=== PATIENT | male | born 1950 | race Caucasian/White ===

== ENCOUNTER 2017-08-19 09:11 | Day surgery (SDC) | payer MEDICARE, SELFPAY ==
[~2017-08-19] VITALS: Ht 182.9 cm; Wt 91.4 kg
[~2017-08-19 09:11] MED LIST: ALBU90I; ALBU90OI INH; ALBU90OI61 INH; AMOCLA875 PO; AMOX500 PO; ASPI81CH PO; ATOR80; Augmentin 875-1 EACH PO; BUDE10.22; BUDE10.22 INH; BUPR100; BUPR150ER PO; CARV25 PO; CYAN1000 PO; CYCL10 PO; Coumadin5 MG PO; DEPRESSION MED; DOXY100 PO; DOXY100T53 PO; ESOM20; Flonase 0.05% N16 GM; HYDACE5 PO; HYDACE5325 PO; HYDR1TAB94 PO; INSLIS75I SUBQ; LEVSOD100 PO; LEVSOD75 PO; LISI5 PO; METPRE4DP PO; Norco 5-325 Ta1 EACH PO; OMEP40CA12 PO; OXYACE5T PO; OXYC5 PO; PRAV20 PO; PSEHYDGUAL PO; RANI150 PO; RXHYD5325 PO; RXHYDMOR2 PO; SERT100; TAMS.4ER PO; THYROID PILL; VITAMIN D31000 UNIT PO; WARF2.5; WARF4; [UNRECOGNIZED DRUG - REMARK]
== END 2017-08-19 11:39 | disposition home or self-care (01) ==
LOC: ORSCSDS 09:11
PROVIDERS: Internal Medicine Gastroenterology
PROC: 0D758ZZ Dilation of Esophagus, Via Natural or Artificial Opening Endoscopic (ICD-10-PCS; principal; 2017-08-19 10:30)
DX: R13.10 Dysphagia, unspecified (principal); K22.2 Esophageal obstruction; K22.10 Ulcer of esophagus without bleeding; K26.9 Duodenal ulcer, unspecified as acute or chronic, without hemorrhage or perforation; K44.9 Diaphragmatic hernia without obstruction or gangrene; K21.9 Gastro-esophageal reflux disease without esophagitis; I25.10 Atherosclerotic heart disease of native coronary artery without angina pectoris; Z95.1 Presence of aortocoronary bypass graft; I10 Essential (primary) hypertension; E03.9 Hypothyroidism, unspecified; Z86.718 Personal history of other venous thrombosis and embolism; J44.9 Chronic obstructive pulmonary disease, unspecified; F17.210 Nicotine dependence, cigarettes, uncomplicated; Z79.01 Long term (current) use of anticoagulants; Z79.899 Other long term (current) drug therapy
CPT/HCPCS: J7120

== ENCOUNTER 2018-09-18 16:31 | Emergency (ER) | payer MEDICARE ==
[~2018-09-18] VITALS: Ht 182.9 cm; Wt 97.1 kg
[2018-09-18] MEDS ORDERED: Augmentin 875-1 EACH PO (17:27)
[2018-09-18] MEDS ORDERED: Prednisone20 MG PO (17:27)
== END 2018-09-18 17:55 | disposition home or self-care (01) ==
LOC: ER 16:31
DX: J32.9 Chronic sinusitis, unspecified (principal); R05 Cough; Z91.018 Allergy to other foods; Z79.899 Other long term (current) drug therapy; Z79.82 Long term (current) use of aspirin; Z79.01 Long term (current) use of anticoagulants; F17.210 Nicotine dependence, cigarettes, uncomplicated
CPT/HCPCS: 71046; 99283-25

== ENCOUNTER 2019-07-02 17:42 | Emergency (ER) | payer OTHER ==
[~2019-07-02] VITALS: Ht 182.9 cm; Wt 101.2 kg
[~2019-07-02 17:42] MED LIST changes: +Prednisone20 MG PO
[2019-07-02 18:27] LABS: BASOPHILS ABSOLUTE AUTO 0.04 K/mm3 (0.00-0.23); BASOPHILS PERCENT AUTO 1 % (0-2); EOSINOPHILS ABSOLUTE AUTO 0.13 K/mm3 (0.00-0.68); EOSINOPHILS PERCENT AUTO 2 % (0-6); Hematocrit 44.1 % (37.0-53.0); Hemoglobin 14.7 g/dL (13.5-17.5); IMMATURE GRAN ABSOLUTE AUTO 0.04 K/mm3 (0.00-0.10); IMMATURE GRAN PERCENT AUTO 1 % (0-1); LYMPHOCYTES ABSOLUTE AUTO 1.11 K/mm3 (0.84-5.20); LYMPHOCYTES PERCENT AUTO 13 % (21-46); MONOCYTES ABSOLUTE AUTO 0.67 K/mm3 (0.16-1.47); MONOCYTES PERCENT AUTO 8 % (4-13); Mean Corpuscular HGB 32.4 pg (26.0-34.0); Mean Corpuscular HGB Conc 33.3 g/dL (31.5-36.5); Mean Corpuscular Volume 97 fL (80-100); Mean Platelet Volume 10.5 fL (9.1-12.4); NEUTROPHILS PERCENT AUTO 77 % (41-73); Platelet Count 121 K/mm3 (150-400); RDW Coefficient Variation 12.7 % (11.7-14.2); RDW Standard Deviation 45.9 fL (35.1-46.3); Red Blood Cell Count 4.54 M/mm3 (4.30-5.90); White Blood Cell Count 8.49 K/mm3 (4.00-11.30)
[2019-07-02 18:40] LABS: International Normalized Ratio 2.93; Prothrombin Time Results 28.2 Sec (9.7-11.5)
[2019-07-02 18:44] LABS: Alanine Aminotransfer (ALT/SGP 29 U/L (12-78); Albumin, Blood 3.2 g/dL (3.4-5.0); Albumin/Globulin Ratio 0.9 (0.8-1.8); Alk Phos 104 U/L (50-136); Anion Gap 8 mmol/L (6-16); Aspartate Aminotrans (AST/SGOT 21 U/L (12-37); Bilirubin, Total 0.5 mg/dL (0.1-1.0); Blood Urea Nitrogen 18 mg/dL (8-24); CO2, Blood 20 mmol/L (21-32); Calcium, Blood 8.5 mg/dL (8.5-10.1); Chloride, Blood 111 mmol/L (98-108); Globulin, Blood 3.6 g/dL (2.2-4.0); Glomerular Filtration Rate >60 (60-); Glucose, Blood 90 mg/dL (70-99); Potassium, Blood 4.2 mmol/L (3.5-5.5); Sodium, Blood 139 mmol/L (136-145); Total Protein, Blood 6.8 g/dL (6.4-8.2); Troponin I <0.015 ng/mL (0.000-0.040)
== END 2019-07-02 20:24 | disposition home or self-care (01) ==
LOC: ER 17:42
PROVIDERS: Physician Assistant
DX: M79.661 Pain in right lower leg (principal); J44.9 Chronic obstructive pulmonary disease, unspecified; F17.210 Nicotine dependence, cigarettes, uncomplicated; Z86.711 Personal history of pulmonary embolism; Z79.01 Long term (current) use of anticoagulants; Z79.82 Long term (current) use of aspirin; Z79.899 Other long term (current) drug therapy; Z91.018 Allergy to other foods
CPT/HCPCS: 36415; 71046; 71260; 80053; 83880; 84484; 85025; 85610; 93005; 93010; 93971; 99284-25; Q9967

== ENCOUNTER 2019-09-23 15:33 | Emergency (ER) | payer MEDICARE ==
[~2019-09-23] VITALS: Ht 182.9 cm; Wt 98.4 kg
[2019-09-23] MEDS ORDERED: Neurontin 100100 MG PO (17:34)
== END 2019-09-23 17:43 | disposition home or self-care (01) ==
LOC: ER 15:33
DX: I72.4 Aneurysm of artery of lower extremity (principal); G62.9 Polyneuropathy, unspecified; Z79.899 Other long term (current) drug therapy; F17.210 Nicotine dependence, cigarettes, uncomplicated
CPT/HCPCS: 93971; 99283-25

== ENCOUNTER 2019-09-29 10:04 | Observation (INO) | payer MEDICARE ==
[~2019-09-29] VITALS: Ht 182.9 cm; Wt 97.4 kg
[~2019-09-29 10:04] MED LIST changes: +ANORO ELLIPTA1 EACH INH; +Neurontin 100100 MG PO; +PANT40 PO; +PROAIR DIGIHAL90 MCG INH
--- NOTE | 2019-09-29 17:35 | NUR ---
PT ADMITTED TO ICU AT 1425 POST ANGIOGRAM OF RIGHT LEG FOR HX PAD. PT AWAKE AND SOMEWHAT DROWSY AFTER PROCEDURE. BEDSIDE REPORT TAKEN. SHEATH/CATHETER TO RIGHT FEM ART, INFUSING TPA/HEP ACROSS THRASHER FEEDER AND DOWN TO RIGHT POP ART. VERY SMALL OOZ TO SHEATH SITE; LESS THAN 1/2 CM. AREA SOFT W/O HEMATOMA. TPA INFUSING 1MG/MIN X2, HEP INFUSING AT 6ML/HR. TPA T BE DECREASED TO 0.5MG/MIN AFTER 6HRS OF INFUSION; 2014. PT C/O PAIN 8-04/08 TO R LEG/FOOT. RIGHT FOOT/GRACE RED, EDEMATOUS, AND TENDER. R FOOT/LEG ELEVATED ON PILLOW. PT STATED THIS HELPED THE PAIN "A LOT". FENT ALS GIVEN FOR PAIN. VSS, SLIGHTLY HYPERTENSIVE AT TIMES. RIGHT DP BY DOPPLER ONLY. RIGHT GROIN AND CIRC CHECKED Q15 X4, Q 30MIN X2, THEN HOURLY. AREA HAS REMAINED WNL, NO BLEEDING (OTHER THAN INSIGNIFICANT OOZ), NO SWELLING, NO HEMATOMA, DP BY DOPPLER.
--- NOTE | 2019-09-29 18:20 | NUR ---
PT ATTEMPTED TO VOID URINAL; UNABLE. STRATTON CATH PLACED WITH UROJET LIDOCAINE. PT TOLERATED PROCEDURE WELL. CLEAR LIQUIDS FED TO PT; PT FELIPE WELL. FENT GIVEN FOR RIGHT FOOT PAIN. LEFT GROIN REMIANS STABLE
[2019-09-29 18:22] LABS: Source, Urine Catheter
[2019-09-29 18:45] LABS: Appearance, Urine Clear (Clear); Bilirubin, Urine Neg (Neg); Blood, Urine Neg (Neg); Color, Urine Yellow (P-Yellow); Glucose Qualitative, Urine Neg (Neg); Ketones, Urine Neg (Neg); Leukocyte Esterase, Urine Neg (Neg); Nitrite, Urine Neg (Neg); Protein, Urine Neg (Neg); Urobilinogen, Urine NORM (Normal)
--- NOTE | 2019-09-29 20:00 | NUR ---
ASSUMED CARE OF PT AT 1915. REPORT RECEIVED AT BEDSIDE. PT CONTINUES ON TPA AT 1 MG. LEFT GROIN ACCESS SITE WITH SMALL PROXIMAL HEMATOMA. VERY TENDER TO PALPATION. WAS ABLE TO SUCCESSFULLY REDUCE HEMATOMA. WILL CONTINUE TO CLOSELY MONTIOR. DOPPLER PULSES BI LAT TO LOWER EXTREMITIES. WILL REVIEW CHART AND PLAN OF CARE FOR THIS PT.
--- NOTE | 2019-09-30 00:24 | NUR ---
PT HAS HAD RETURN OF HEMATOMA, WHICH WAS SLIGHTLY BIGGER THAN PREVIOUOSLY NOTED. AGAIN, REDUCED HEMATOMA AND THEN PLACED 2 POUND SANDBAG TO SITE. CALL MADE TO DR DENG FOR UPDATE. ORDERS RECEIVED. DID REDUCE ATEPLACE DRIPS TO 0.5 MG EACH. WITH SUBSEQUENT Q 15 MINUTES CHECKS. HAVE NOT HAD RETURN OF HEMATOMEA. WILL CONTINUE TO MONITOR.
--- NOTE | 2019-09-30 03:30 | NUR ---
LEFT GROIN SITE REMAINS WITHOUT RETURN OF HEMATOMA. PT CONTINUES ON TPA X 2 AT O.5MG/HOUR. PT REMAINS COMPLIANT WITH SUPINE RESTRICTIONS. LOWER EXTREMITIES BOTH REMAINS WARM. CAP REFILLS IMPROVING TO 2-3 SECONDS. WILL KEEP MONITORING.
--- NOTE | 2019-09-30 06:10 | NUR ---
PT NOTED TO HAVE SMALL RETURN OF HEMATOMA WHICH EASILY REDUCES. 2 POUND SANDBAG REPOSITIONED. PT WILL CONTINUE TO TPA DRIPS UNTIL 1015. 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 VSS. HAVE BEEN ABLE TO PALPATE FAINT PEDAL PULSES BI LAT. VERIFIED WITH DOPPLER. WILL CONTINUE TO MONITOR PT, AND WILL REPORT OFF TO ONCOMING RN.
--- NOTE | 2019-09-30 10:27 | NUR ---
RETURN FROM TIRE CLASSIFIER 0950 - PT RETURNS FROM TIRE CLASSIFIER AT THIS TIME. L GROIN ANGIOSEAL CLEAN AND DRY WITH HEMATOMA AROUND AREA. DENIES CHEST PAIN. BILAT PEDAL PULSES DOPPLERED BUT NOT PALPABLE. R LEG IS REDDENED AND SWOLLEN COMPARED TO L LEG. NO SOB AT THIS TIME; RA. LUNG SOUNDS CLEAR. ARRIVES WITH NO FLUIDS INFUSING. ORAL MEDICATIONS GIVEN. PT LYING FLAT AND AWARE THAT HE IS TO REMAIN FLAT FOR FEW HOURS. HEPARIN GTT TO BE STARTED AT 1150. WILL CONTINUE TO MONITOR PT AND SITE.
[2019-09-30 11:14] LABS: International Normalized Ratio 1.62; Prothrombin Time Results 16.9 Sec (9.7-11.5)
[2019-09-30] MEDS ORDERED: Plavix75 MG PO (15:13)
--- NOTE | 2019-09-30 16:08 | NUR ---
DISCHARGE PERIPHERAL IV REMOVED. STRATTON CATHETER REMOVED. COUNSELED PT ON DC INSTRUCTIONS, FU APPOINTMENT, AND NEW MEDICATIONS ALONG WITH RESUMING PRIOR MEDICATIONS. DISCUSSED THE IMPORTAMCE OF MOBILIZATION TO PREVENT CLOTTING OF THE GRAFT. WHEELED TO DISCHARGE AND PUT IN FRIENDS VAN.
--- NOTE | 2019-09-30 18:19 | NUR ---
Mr. Sevilla was very open about his grief with the loss of his 3 months ago. He spoke about his frustrations with adult dtr and responded well to adolescent counselor and prayer. I will remain available.
== END 2019-09-30 16:08 | disposition home or self-care (01) ==
LOC: MHTC 10:04 → ICUE 14:02 → MHTC 14:02 → ICUW 14:02 → ICUE 14:46
PROVIDERS: ADMIT Radiology Diagnostic Radiology
DX: I70.203 Unspecified atherosclerosis of native arteries of extremities, bilateral legs (principal); I10 Essential (primary) hypertension; E78.5 Hyperlipidemia, unspecified; J44.9 Chronic obstructive pulmonary disease, unspecified; K21.9 Gastro-esophageal reflux disease without esophagitis; I72.4 Aneurysm of artery of lower extremity; F17.210 Nicotine dependence, cigarettes, uncomplicated; Z88.8 Allergy status to other drugs, medicaments and biological substances; Z79.01 Long term (current) use of anticoagulants; Z79.82 Long term (current) use of aspirin; Z79.899 Other long term (current) drug therapy
CPT/HCPCS: 36415; 37211; 37214; 37224; 37228; 37232; 75625; 75716; 75774; 81003; 85347; 85384; 85610; 85730; 94640; 96374; 96375; 96376; 99152; 99153; A9270-GY; C1725; C1751; C1760; C1769; C1887; C1894; C2623; G0378; J1644; J2250; J2997; J3010; J7030; J7040; Q9967

== ENCOUNTER 2019-11-15 12:20 | Day surgery (SDC) | payer MEDICARE ==
[~2019-11-15 12:20] MED LIST changes: +Plavix75 MG PO
== END 2019-11-15 22:52 | disposition home or self-care (01) ==
PROVIDERS: Internal Medicine Gastroenterology
PROC: 0D758ZZ Dilation of Esophagus, Via Natural or Artificial Opening Endoscopic (ICD-10-PCS; principal; 2019-11-15 15:30)
PROC: 0DJ08ZZ Inspection of Upper Intestinal Tract, Via Natural or Artificial Opening Endoscopic (ICD-10-PCS; principal; 2019-11-15 15:30)
DX: R13.10 Dysphagia, unspecified (principal); K22.2 Esophageal obstruction; K44.9 Diaphragmatic hernia without obstruction or gangrene; Z86.718 Personal history of other venous thrombosis and embolism; J44.9 Chronic obstructive pulmonary disease, unspecified; I73.9 Peripheral vascular disease, unspecified; Z79.01 Long term (current) use of anticoagulants; Z79.82 Long term (current) use of aspirin; Z79.899 Other long term (current) drug therapy; F17.210 Nicotine dependence, cigarettes, uncomplicated

== ENCOUNTER 2020-05-30 14:29 | Inpatient (IN) | payer MEDICARE ==
[~2020-05-30] VITALS: Ht 182.9 cm; Wt 96.0 kg
[2020-05-30 15:07] LABS: BASOPHILS ABSOLUTE AUTO 0.05 K/mm3 (0.00-0.23); BASOPHILS PERCENT AUTO 1 % (0-2); EOSINOPHILS ABSOLUTE AUTO 0.07 K/mm3 (0.00-0.68); EOSINOPHILS PERCENT AUTO 1 % (0-6); Hematocrit 49.2 % (37.0-53.0); Hemoglobin 16.3 g/dL (13.5-17.5); IMMATURE GRAN ABSOLUTE AUTO 0.05 K/mm3 (0.00-0.10); IMMATURE GRAN PERCENT AUTO 1 % (0-1); LYMPHOCYTES ABSOLUTE AUTO 1.12 K/mm3 (0.84-5.20); LYMPHOCYTES PERCENT AUTO 12 % (21-46); MONOCYTES ABSOLUTE AUTO 0.74 K/mm3 (0.16-1.47); MONOCYTES PERCENT AUTO 8 % (4-13); Mean Corpuscular HGB 32.3 pg (26.0-34.0); Mean Corpuscular HGB Conc 33.1 g/dL (31.5-36.5); Mean Corpuscular Volume 98 fL (80-100); NEUTROPHILS ABSOLUTE AUTO 7.08 K/mm3 (1.96-9.15); NEUTROPHILS PERCENT AUTO 78 % (41-73); Platelet Count 109 K/mm3 (150-400); RDW Standard Deviation 46.4 fL (35.1-46.3); Red Blood Cell Count 5.04 M/mm3 (4.30-5.90); White Blood Cell Count 9.11 K/mm3 (4.00-11.30)
[2020-05-30 15:26] LABS: Alanine Aminotransfer (ALT/SGP 22 U/L (12-78); Albumin, Blood 3.5 g/dL (3.4-5.0); Albumin/Globulin Ratio 0.9 (0.8-1.8); Alk Phos 98 U/L (50-136); Anion Gap 4 mmol/L (6-16); Aspartate Aminotrans (AST/SGOT 19 U/L (12-37); Bilirubin, Total 0.5 mg/dL (0.1-1.0); Blood Urea Nitrogen 14 mg/dL (8-24); Bun/Creatinine Ratio 12.2 (12.0-20.0); CO2, Blood 27 mmol/L (21-32); Calcium, Blood 9.2 mg/dL (8.5-10.1); Chloride, Blood 106 mmol/L (98-108); Creatinine, Blood 1.15 mg/dL (0.60-1.20); Globulin, Blood 3.8 g/dL (2.2-4.0); Glomerular Filtration Rate >60 (60-); Glucose, Blood 102 mg/dL (70-99); Potassium, Blood 4.1 mmol/L (3.5-5.5); Sodium, Blood 137 mmol/L (136-145); Total Protein, Blood 7.3 g/dL (6.4-8.2); Troponin I 0.018 ng/mL (0.000-0.040)
[2020-05-30] MEDS ORDERED: SYNTHROID75 MCG PO (18:42)
[2020-05-30] MEDS ORDERED: CARVEDILOL12.5 MG PO (18:42)
[2020-05-30] MEDS ORDERED: Pravachol40 MG PO (18:42)
[2020-05-30] MEDS ORDERED: TAMSULOSIN HCL0.4 M1 PO (18:42)
[2020-05-30] MEDS ORDERED: JANTOVEN2 MG PO (18:42)
[2020-05-30] MEDS ORDERED: PANTOPRAZOLE SO40 M2 PO (18:42)
[2020-05-30] MEDS ORDERED: LISI5 PO (18:43)
[2020-05-30] MEDS ORDERED: CELEXA10 MG PO (18:43)
[2020-05-30] MEDS ORDERED: PLAVIX75 MG PO (18:43)
[2020-05-30 20:22] LABS: International Normalized Ratio 1.44; Prothrombin Time Results 15.1 Sec (9.7-11.5)
[2020-05-30 23:19] LABS: Influenza A, PCR Negative (NEGATIVE); Influenza B, PCR Negative (NEGATIVE); Resp Syncytial Virus, PCR Negative (NEGATIVE); SARS-Cov-2 (COVID-19) PCR, MMC Negative (NEGATIVE)
[2020-05-31 05:23] LABS: BASOPHILS ABSOLUTE AUTO 0.03 K/mm3 (0.00-0.23); BASOPHILS PERCENT AUTO 0 % (0-2); EOSINOPHILS ABSOLUTE AUTO 0.04 K/mm3 (0.00-0.68); EOSINOPHILS PERCENT AUTO 1 % (0-6); Hematocrit 41.4 % (37.0-53.0); Hemoglobin 13.5 g/dL (13.5-17.5); IMMATURE GRAN ABSOLUTE AUTO 0.03 K/mm3 (0.00-0.10); IMMATURE GRAN PERCENT AUTO 0 % (0-1); LYMPHOCYTES ABSOLUTE AUTO 1.13 K/mm3 (0.84-5.20); LYMPHOCYTES PERCENT AUTO 17 % (21-46); MONOCYTES PERCENT AUTO 9 % (4-13); Mean Corpuscular HGB 31.7 pg (26.0-34.0); Mean Corpuscular HGB Conc 32.6 g/dL (31.5-36.5); Mean Corpuscular Volume 97 fL (80-100); Mean Platelet Volume 10.8 fL (9.1-12.4); NEUTROPHILS ABSOLUTE AUTO 4.96 K/mm3 (1.96-9.15); NEUTROPHILS PERCENT AUTO 73 % (41-73); Platelet Count 89 K/mm3 (150-400); RDW Coefficient Variation 12.9 % (11.7-14.2); RDW Standard Deviation 45.8 fL (35.1-46.3); Red Blood Cell Count 4.26 M/mm3 (4.30-5.90); White Blood Cell Count 6.79 K/mm3 (4.00-11.30)
[2020-05-31 05:36] LABS: Alanine Aminotransfer (ALT/SGP 21 U/L (12-78); Albumin, Blood 2.6 g/dL (3.4-5.0); Albumin/Globulin Ratio 0.9 (0.8-1.8); Alk Phos 80 U/L (50-136); Anion Gap 6 mmol/L (6-16); Aspartate Aminotrans (AST/SGOT 58 U/L (12-37); Bilirubin, Total 0.5 mg/dL (0.1-1.0); Blood Urea Nitrogen 13 mg/dL (8-24); Bun/Creatinine Ratio 14.9 (12.0-20.0); CO2, Blood 23 mmol/L (21-32); Calcium, Blood 8.2 mg/dL (8.5-10.1); Chloride, Blood 112 mmol/L (98-108); Creatinine, Blood 0.87 mg/dL (0.60-1.20); Glomerular Filtration Rate >60 (60-); Glucose, Blood 98 mg/dL (70-99); Potassium, Blood 4.1 mmol/L (3.5-5.5); Sodium, Blood 141 mmol/L (136-145); Total Protein, Blood 5.6 g/dL (6.4-8.2)
[2020-05-31 08:39] LABS: CHOL/HDL RATIO 3.3; Cholesterol 119 mg/dL (50-200); HDL Cholesterol 36 mg/dL (>39); LDL/HDL RATIO 1.8; Low Density Lipoprotein Chol 66 mg/dL (0-110); Triglycerides 83 mg/dL (30-160); Very Low Density Lipoprot Chol 16 mg/dL (6-32)
[2020-06-01 03:54] LABS: BASOPHILS ABSOLUTE AUTO 0.02 K/mm3 (0.00-0.23); BASOPHILS PERCENT AUTO 0 % (0-2); EOSINOPHILS ABSOLUTE AUTO 0.01 K/mm3 (0.00-0.68); EOSINOPHILS PERCENT AUTO 0 % (0-6); Hematocrit 38.3 % (37.0-53.0); Hemoglobin 12.6 g/dL (13.5-17.5); IMMATURE GRAN ABSOLUTE AUTO 0.04 K/mm3 (0.00-0.10); IMMATURE GRAN PERCENT AUTO 1 % (0-1); LYMPHOCYTES ABSOLUTE AUTO 0.85 K/mm3 (0.84-5.20); LYMPHOCYTES PERCENT AUTO 11 % (21-46); MONOCYTES PERCENT AUTO 12 % (4-13); Mean Corpuscular HGB 31.9 pg (26.0-34.0); Mean Corpuscular HGB Conc 32.9 g/dL (31.5-36.5); Mean Corpuscular Volume 97 fL (80-100); Mean Platelet Volume 10.4 fL (9.1-12.4); NEUTROPHILS ABSOLUTE AUTO 5.96 K/mm3 (1.96-9.15); NEUTROPHILS PERCENT AUTO 77 % (41-73); Platelet Count 71 K/mm3 (150-400); RDW Coefficient Variation 12.8 % (11.7-14.2); RDW Standard Deviation 45.9 fL (35.1-46.3); Red Blood Cell Count 3.95 M/mm3 (4.30-5.90); White Blood Cell Count 7.78 K/mm3 (4.00-11.30)
[2020-06-01 04:28] LABS: Anion Gap 4 mmol/L (6-16); Blood Urea Nitrogen 13 mg/dL (8-24); CO2, Blood 23 mmol/L (21-32); Calcium, Blood 7.9 mg/dL (8.5-10.1); Chloride, Blood 109 mmol/L (98-108); Creatinine, Blood 1.08 mg/dL (0.60-1.20); Glomerular Filtration Rate >60 (60-); Glucose, Blood 97 mg/dL (70-99); Potassium, Blood 3.9 mmol/L (3.5-5.5); Sodium, Blood 136 mmol/L (136-145)
[2020-06-01 10:06] LABS: International Normalized Ratio 1.42; Prothrombin Time Results 14.9 Sec (9.7-11.5)
[2020-06-01] MEDS ORDERED: JANTOVEN2 MG (10:30)
[2020-06-02 05:12] LABS: BASOPHILS ABSOLUTE AUTO 0.02 K/mm3 (0.00-0.23); BASOPHILS PERCENT AUTO 0 % (0-2); EOSINOPHILS ABSOLUTE AUTO 0.02 K/mm3 (0.00-0.68); EOSINOPHILS PERCENT AUTO 0 % (0-6); Hematocrit 38.6 % (37.0-53.0); Hemoglobin 12.9 g/dL (13.5-17.5); IMMATURE GRAN ABSOLUTE AUTO 0.04 K/mm3 (0.00-0.10); IMMATURE GRAN PERCENT AUTO 1 % (0-1); LYMPHOCYTES ABSOLUTE AUTO 1.04 K/mm3 (0.84-5.20); LYMPHOCYTES PERCENT AUTO 15 % (21-46); MONOCYTES ABSOLUTE AUTO 0.78 K/mm3 (0.16-1.47); MONOCYTES PERCENT AUTO 11 % (4-13); Mean Corpuscular HGB 32.7 pg (26.0-34.0); Mean Corpuscular HGB Conc 33.4 g/dL (31.5-36.5); Mean Corpuscular Volume 98 fL (80-100); NEUTROPHILS ABSOLUTE AUTO 5.15 K/mm3 (1.96-9.15); NEUTROPHILS PERCENT AUTO 73 % (41-73); RDW Standard Deviation 46.7 fL (35.1-46.3); Red Blood Cell Count 3.94 M/mm3 (4.30-5.90); White Blood Cell Count 7.05 K/mm3 (4.00-11.30)
[2020-06-02 05:17] LABS: Mean Platelet Volume 10.6 fL (9.1-12.4); Platelet Count 82 K/mm3 (150-400)
[2020-06-02 05:31] LABS: Anion Gap 5 mmol/L (6-16); Blood Urea Nitrogen 13 mg/dL (8-24); Bun/Creatinine Ratio 11.8 (12.0-20.0); CO2, Blood 24 mmol/L (21-32); Calcium, Blood 8.3 mg/dL (8.5-10.1); Chloride, Blood 111 mmol/L (98-108); Glomerular Filtration Rate >60 (60-); Glucose, Blood 90 mg/dL (70-99); International Normalized Ratio 1.28; Potassium, Blood 3.8 mmol/L (3.5-5.5); Prothrombin Time Results 13.5 Sec (9.7-11.5); Sodium, Blood 140 mmol/L (136-145)
[2020-06-03 05:41] LABS: International Normalized Ratio 1.35; Prothrombin Time Results 14.2 Sec (9.7-11.5)
[2020-06-03] MEDS ORDERED: Aspir 8181 MG PO (14:47)
[2020-06-03] MEDS ORDERED: Isosorbide Mono30 MG PO (14:48)
[2020-06-03] MEDS ORDERED: NITR.4SL SL (14:48)
[2020-06-03] MEDS ORDERED: MIRALAX17 GM PO (14:49)
== END 2020-06-03 15:59 | disposition home health service (06) | DRG 282 ==
LOC: ER 14:29 → ICUE 21:36 → ICUW 21:36 → ICUE 22:21 → MEDS 06-01 18:48
PROVIDERS: Emergency Medicine; Family Medicine; Internal Medicine Cardiovascular Disease; Nurse Practitioner Acute Care; ADMIT Internal Medicine
PROC: B2111ZZ Fluoroscopy of Multiple Coronary Arteries using Low Osmolar Contrast (ICD-10-PCS; principal; 2020-05-31)
PROC: B2131ZZ Fluoroscopy of Multiple Coronary Artery Bypass Grafts using Low Osmolar Contrast (ICD-10-PCS; 2020-05-31)
DX: I21.4 Non-ST elevation (NSTEMI) myocardial infarction (principal); Z79.01 Long term (current) use of anticoagulants; I25.10 Atherosclerotic heart disease of native coronary artery without angina pectoris; I10 Essential (primary) hypertension; E78.5 Hyperlipidemia, unspecified; E03.9 Hypothyroidism, unspecified; I73.9 Peripheral vascular disease, unspecified; Z95.1 Presence of aortocoronary bypass graft; F17.210 Nicotine dependence, cigarettes, uncomplicated; J43.9 Emphysema, unspecified; Z86.711 Personal history of pulmonary embolism; I95.2 Hypotension due to drugs; T46.3X5A Adverse effect of coronary vasodilators, initial encounter; Y92.230 Patient room in hospital as the place of occurrence of the external cause; D69.6 Thrombocytopenia, unspecified
CPT/HCPCS: 0241U; 36415; 70450; 71045; 71046; 71260; 76937; 80048; 80053; 80061; 83605; 83690; 83735; 83880; 84145; 84484; 85025; 85347; 85379; 85610; 85730; 87040; 93005; 93010; 93306; 93455; 96361; 96365; 96375; 97162; 97165; 99152; 99153; 99285-25; A9270; A9270-GY; C1769; C1894; J1644; J2250; J2405; J3010; J7030; J7040; J7050; Q9967

== ENCOUNTER 2021-04-12 13:51 | Inpatient (IN) | payer MEDICARE ==
[~2021-04-12] VITALS: Ht 182.9 cm; Wt 94.0 kg
[~2021-04-12 13:51] MED LIST changes: +Aspir 8181 MG PO; +CARVEDILOL12.5 MG PO; +JANTOVEN2 MG; +MIRALAX17 GM PO; +NITR.4SL SL; +PLAVIX75 MG PO; +TAMSULOSIN HCL0.4 M1 PO
[2021-04-12 16:19] LABS: BASOPHILS ABSOLUTE AUTO 0.05 K/mm3 (0.00-0.23); BASOPHILS PERCENT AUTO 1 % (0-2); EOSINOPHILS PERCENT AUTO 1 % (0-6); Hemoglobin 15.1 g/dL (13.5-17.5); IMMATURE GRAN ABSOLUTE AUTO 0.06 K/mm3 (0.00-0.10); IMMATURE GRAN PERCENT AUTO 1 % (0-1); LYMPHOCYTES ABSOLUTE AUTO 1.25 K/mm3 (0.84-5.20); LYMPHOCYTES PERCENT AUTO 16 % (21-46); MONOCYTES ABSOLUTE AUTO 0.73 K/mm3 (0.16-1.47); MONOCYTES PERCENT AUTO 9 % (4-13); Mean Corpuscular HGB 33.6 pg (26.0-34.0); Mean Corpuscular HGB Conc 34.3 g/dL (31.5-36.5); Mean Corpuscular Volume 98 fL (80-100); Mean Platelet Volume 10.1 fL (9.1-12.4); NEUTROPHILS ABSOLUTE AUTO 5.69 K/mm3 (1.96-9.15); NEUTROPHILS PERCENT AUTO 72 % (41-73); Platelet Count 128 K/mm3 (150-400); RDW Standard Deviation 46.9 fL (35.1-46.3); White Blood Cell Count 7.88 K/mm3 (4.00-11.30)
[2021-04-12 16:31] LABS: International Normalized Ratio 2.42
[2021-04-12] MEDS ORDERED: ISOSORBIDE MONO60 MG PO (16:44)
[2021-04-12] MEDS ORDERED: SYNTHROID75 MCG PO (16:45)
[2021-04-12] MEDS ORDERED: JANTOVEN2 MG PO (16:46)
[2021-04-12] MEDS ORDERED: PANTOPRAZOLE SO40 M2 PO (16:46)
[2021-04-12] MEDS ORDERED: Pravastatin Sod40 MG PO (16:47)
[2021-04-12] MEDS ORDERED: LISI20 PO (16:48)
[2021-04-12] MEDS ORDERED: Celexa20 MG PO (16:49)
[2021-04-12 17:08] LABS: Alanine Aminotransfer (ALT/SGP 25 U/L (12-78); Albumin, Blood 3.1 g/dL (3.4-5.0); Albumin/Globulin Ratio 0.8 (0.8-1.8); Alk Phos 89 U/L (50-136); Anion Gap 5 mmol/L (6-16); Aspartate Aminotrans (AST/SGOT 20 U/L (12-37); Bilirubin, Total 0.8 mg/dL (0.1-1.0); Blood Urea Nitrogen 12 mg/dL (8-24); Bun/Creatinine Ratio 10.3 (12.0-20.0); CO2, Blood 24 mmol/L (21-32); Calcium, Blood 9.1 mg/dL (8.5-10.1); Chloride, Blood 108 mmol/L (98-108); Creatinine, Blood 1.17 mg/dL (0.60-1.20); Globulin, Blood 3.9 g/dL (2.2-4.0); Glomerular Filtration Rate >60 (60-); Glucose, Blood 92 mg/dL (70-99); Potassium, Blood 4.3 mmol/L (3.5-5.5); Sodium, Blood 137 mmol/L (136-145)
--- NOTE | 2021-04-13 05:00 | NUR ---
this patient had very little sleep overnight, denying the need for medication help to get rest, finally after midnight, he admitted he was anxious and asked if we could help. 0.5mg of Ativan was given witih good result. Per order, patient will be NPO after breakfast. He is frustrated that he continues to have so many similar issues and feels like the best fix would be to "treat the cause if we could figure it out." No complaints of pain, but does complain of complete numbness r. foot with pins and needles between his left great toe and second tod.
[2021-04-13 05:05] LABS: BASOPHILS ABSOLUTE AUTO 0.05 K/mm3 (0.00-0.23); BASOPHILS PERCENT AUTO 1 % (0-2); EOSINOPHILS ABSOLUTE AUTO 0.16 K/mm3 (0.00-0.68); EOSINOPHILS PERCENT AUTO 2 % (0-6); Hematocrit 43.3 % (37.0-53.0); Hemoglobin 14.7 g/dL (13.5-17.5); IMMATURE GRAN ABSOLUTE AUTO 0.04 K/mm3 (0.00-0.10); IMMATURE GRAN PERCENT AUTO 1 % (0-1); LYMPHOCYTES ABSOLUTE AUTO 1.44 K/mm3 (0.84-5.20); LYMPHOCYTES PERCENT AUTO 20 % (21-46); MONOCYTES ABSOLUTE AUTO 0.78 K/mm3 (0.16-1.47); MONOCYTES PERCENT AUTO 11 % (4-13); Mean Corpuscular HGB 33.2 pg (26.0-34.0); Mean Corpuscular HGB Conc 33.9 g/dL (31.5-36.5); Mean Corpuscular Volume 98 fL (80-100); Mean Platelet Volume 10.7 fL (9.1-12.4); NEUTROPHILS ABSOLUTE AUTO 4.73 K/mm3 (1.96-9.15); NEUTROPHILS PERCENT AUTO 66 % (41-73); Platelet Count 120 K/mm3 (150-400); RDW Standard Deviation 46.8 fL (35.1-46.3); Red Blood Cell Count 4.43 M/mm3 (4.30-5.90)
[2021-04-13 05:26] LABS: Anion Gap 7 mmol/L (6-16); Blood Urea Nitrogen 12 mg/dL (8-24); Bun/Creatinine Ratio 10.8 (12.0-20.0); CO2, Blood 24 mmol/L (21-32); Calcium, Blood 8.7 mg/dL (8.5-10.1); Chloride, Blood 108 mmol/L (98-108); Creatinine, Blood 1.11 mg/dL (0.60-1.20); Glomerular Filtration Rate >60 (60-); Glucose, Blood 87 mg/dL (70-99); Potassium, Blood 3.9 mmol/L (3.5-5.5); Sodium, Blood 139 mmol/L (136-145)
--- NOTE | 2021-04-13 11:52 | NUR ---
Upon receiving a referral for spiritual care, I visit patient. Patient immediately tells me about the tension he is feeling as he states that he is awaiting a possible amputation. He then talks at length about his childhood, his family, his careers and his deep belief in God. I normalize his experience and provide therapeutic listening, gentle senior living sales counselor and prayer. Patient responds well and shows signs of reduced stress. I will continue to remain available to patient and family.
[2021-04-13 12:30] LABS: International Normalized Ratio 2.36; Prothrombin Time Results 23.4 Sec (9.7-11.5)
--- NOTE | 2021-04-13 17:48 | NUR ---
SHIFT SUMMARY PATIENT ALERT AND ORIENTED, AND COOPERATIVE WITH CARE. PATIENT IS CURRENTLY ON ON A HEPARIN DRIP. RUNNING AT 15 U/KG/HR, 28.2 ML/HR 94KG. NO COMPLAINTS OF SHORTNESS OF BREATH OR CHESTPAIN. DOPPLER USED FOR RIGHT PEDAL PULSE. PATIENT STATES THERE IS TINGLING AND NUMBNESS PRESENT IN THE RIGHT GREATER TOE AND SECOND TOE. NO ACUTE CHANGES THIS SHIFT. WILL CONTINUE TO CARE FOR PATIENT UNTIL SHIFT CHANGE.
--- NOTE | 2021-04-14 01:57 | NUR ---
04/13/21: NOTIFIED ASSISTANT PROPERTY MANAGER OF ELEVATED PTT > 139, CRITICAL VALUE. PHARM [facility] RETURNS CALL WITH ORDERS TO HOLD HEPARIN INFUSION FOR ONE HOUR, THEN RE-CHECK PTT AND RE-START HEPARIN. HEPARIN GTT DISCONNECTED AT 20:45 PM. PT IS ALERT, ORIENTED, ABLE TO MAKE NEEDS KNOWN AND CALLS APPROPRIATELY. CALL LIGHT WITHIN REACH. PT DENIES PAIN, HEADACHE, OR CHEST PAIN.
--- NOTE | 2021-04-14 04:01 | NUR ---
SHIFT SUMMARY PT HAD CRITICAL VALUE OF PTT > 139. RN NOTIFIED PHARMACIST, HELD HEPARIN GTT FOR ONE HOUR FOR LAB RE-DRAW. THEN RE-STARTED HEPARIN DRIP AT 13 U/KG/HR INTO RIGHT FA. PT REPORTED ONE EPISODE OF NAUSEA THAT HE CREDITED TO GERD, STATED "THIS HAPPENS AT HOME, I'LL BE SLEEPING AND WAKE UP TO THROW UP AND ONCE I DO, I'M FINE." PT DENIED ANY ACTUAL EMESIS TONIGHT. RECEIVED PRN ZOFRAN. VSS, SLEPT MOST OF THE SHIFT OR WATCHED TV. PT USES CALL LIGHT TO MAKE NEEDS KNOWN. CAN USE URINAL INDEPENDENTLY AT BEDSIDE. USED DOPPLER TO AUSCULTATE THREADY PULSE ON LEFT FOOT, STILL REPORTS NUMBNESS/TINGLING TO LEFT FOOT.
[2021-04-14] MEDS ORDERED: ASPI81CH PO (15:31)
[2021-04-14] MEDS ORDERED: TAMS.4ER PO (15:31)
[2021-04-14] MEDS ORDERED: XARELTO15 MG PO (15:33)
[2021-04-14] MEDS ORDERED: XARELTO20 MG PO (15:34)
== END 2021-04-14 16:51 | disposition home or self-care (01) | DRG 315 ==
LOC: ER 13:51 → MEDS 13:52 → ER 18:14 → MEDS 19:50
PROVIDERS: Emergency Medicine; Internal Medicine; ADMIT Internal Medicine
DX: T82.868A Thrombosis due to vascular prosthetic devices, implants and grafts, initial encounter (principal); I74.3 Embolism and thrombosis of arteries of the lower extremities; D69.6 Thrombocytopenia, unspecified; J44.9 Chronic obstructive pulmonary disease, unspecified; E78.5 Hyperlipidemia, unspecified; Z23 Encounter for immunization; E03.9 Hypothyroidism, unspecified; I10 Essential (primary) hypertension; I25.2 Old myocardial infarction; I44.30 Unspecified atrioventricular block; I25.10 Atherosclerotic heart disease of native coronary artery without angina pectoris; N40.0 Benign prostatic hyperplasia without lower urinary tract symptoms; F17.210 Nicotine dependence, cigarettes, uncomplicated; Z91.018 Allergy to other foods; Z79.82 Long term (current) use of aspirin; Z86.718 Personal history of other venous thrombosis and embolism; Z79.01 Long term (current) use of anticoagulants; Z95.0 Presence of cardiac pacemaker; Z79.899 Other long term (current) drug therapy; Z86.711 Personal history of pulmonary embolism; Z98.890 Other specified postprocedural states; Z95.1 Presence of aortocoronary bypass graft; Y71.2 Prosthetic and other implants, materials and accessory cardiovascular devices associated with adverse incidents
CPT/HCPCS: 36415; 75635; 80048; 80053; 85025; 85610; 85730; 90686; 93971; 96374; 99285-25; A9270; G0378; J1644; Q9967

== ENCOUNTER 2021-04-18 13:15 | Day surgery (SDC) | payer MEDICARE ==
[~2021-04-18] VITALS: Wt 94.0 kg
[~2021-04-18 13:15] MED LIST changes: +Celexa20 MG PO; +ISOSORBIDE MONO60 MG PO; +JANTOVEN2 MG PO; +LISI20 PO; +PANTOPRAZOLE SO40 M2 PO; +Pravastatin Sod40 MG PO; +SYNTHROID75 MCG PO; +XARELTO15 MG PO; +XARELTO20 MG PO
--- NOTE | 2021-04-18 19:15 | NUR ---
Assumed care. Report recieved from dayshift RN. Patient resting quietly in bed. Patient alert and oriented, currently eating dinner meal. Patient on room air, IV access in L/AC, sheath in L/groin. IV pump settings: Heparin 3.33 U/hr, TPA 1 mg/hr, NS 10 ml/hr. No acute needs noted at this time, patient able to use call light. Will continue to monitor.
--- NOTE | 2021-04-18 19:25 | NUR ---
SHIFT SUMMARY: 1535- 1545 PATIENT ARRIVED TO UNIT. A/OX4. SHEATH TO LEFT GROIN- WARM TO TOUCH. NO HEMATOMA. PEDAL PULSE VIA DOPPLER. C/O OF NUMBNESS/TINGLING TO R FOOT. PATIENT DENIES PAIN. FULL ASSESSMENT TO FOLLOW. SEE FLOWSHEET
--- NOTE | 2021-04-18 20:45 | NUR ---
PAIN PT C/O PAIN 02/06 TO BACK OF HEAD/NECK. CALL TO DR DENG REGARDING PAIN. RECEIVED ORDERS FOR FENANTYL AND TYLENOL.
--- NOTE | 2021-04-19 00:16 | NUR ---
MIDNIGHT ASSESSMENT. NO CHANGES FROM BEGINNING OF SHIFT. DOPPLER PULSE IN RIGHT FOOT VERY FAINT, PATIENT DENIES ANY CHANGE IN SENSATION OF AFFECTED LIMB, STILL REPORTS NUMBNESS AND TINGLING RLE. SHEATH SITE INTACT, WNL. WILL CONTINUE TO MONITOR.
--- NOTE | 2021-04-19 04:39 | NUR ---
Assessment update. Patient assessment remains the same. Patient reports some relief of numbness and tingling in right extremity. Sheath site intact, WNL. No acute needs noted, patient call light within reach.
--- NOTE | 2021-04-19 06:51 | NUR ---
Shift summary. Pt rested quietly in bed throughout shift, able to sleep for several hours at a time. Pt alert and oriented, able to communicate needs, use call light and urinal in bed. 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 IV pump settings: Heparin 3.33 units/kg/hr, TPA 1 mg/hr, NS 10 ml/hr. PT c/o slight burning sensation at sheath site and numbness/tingling in RLE. See shift assessment for details. Will continue to monitor and report off to dayshift RN.
--- NOTE | 2021-04-19 07:31 | NUR ---
ASSUMED CARE: 0650 BEDSIDE REPORT RECIEVED FROM NIGHTSMTFT NURSE. PATIENT AWAKE IN BED, A/OX4/ PACED ON TELEMETRY, B/P WNL. PIV TO R WRIST AND L AC; SALINE LOCKED. SHEATH TO L GROIN INTACT; NO SWELLING/HEMATOMA. PATIENT DENIES PAIN BUT ENDORSES NUMBNESS/TINGLING TO R FOOT. BILAT LOWER EXTREMITIES WARM TO TOUCH. BILAT PEDAL PULSES VERIFIED VIA DOPPLER. HEPARIN (3.33UNIT.KG/HR-6ML/HR) AND TPA (1MG/HR-25ML/HR) VIA SHEATH NO ACUTE DISTRESS; WILL CONTINUE TO MONITOR.
--- NOTE | 2021-04-19 11:59 | NUR ---
1155 PATIENT AWAKE, A/OX4, DENIES PAIN. NO ACUTE DISTRESS NOTED. NO CHANGE FROM PREVIOUS ASSESSMENT. PATIENT TRANSFERRED OFF UNIT TO TRUCK DRIVER TEAMSTER.
--- NOTE | 2021-04-19 14:31 | NUR ---
1355 PATIENT RETURNED FROM FINISHER SPECIAL STOCKS. BEDSIDE REPORT RECIEVED FROM CATH TEAM. PATIENT AWAKE, AOX4. 1400 PATIENT INSTRUCTED TO REMAIN SUPINE AND LIMIT ROM TO LEFT LEG. ANGIOSEAL TO LEFT GROIN; GROIN WARM/NONTENDER. NO HEMATOMA NOTED. PEDAL PULSE CONFIRMED VIA DOPPLER. PATIENT REMAINS PACED ON TELEMETRY, B/P WNL. O2 SAT 95% RA TYLENOL GIVEN FOR C/O OF RIGHT FOOT PAIN (SEE EMAR) 1430 BED TILTED/REVERSED TREND. LUNCH TRAY PROVIDED
--- NOTE | 2021-04-19 16:06 | NUR ---
DISCHARGE RX RX FOR PLAVIX CALLED TO [facility].
--- NOTE | 2021-04-19 17:00 | NUR ---
1600 PATIENT EDUCATED ON FEM/GROIN SITE CARE. DISCHARGE INSTRUCTIONS/PAPERWORK PROVIDED. ALL PATIENT CONCERNS/QUESTIONS ADDRESSED. PIVS REMOVED. DRESSING TO LEFT GROIN INTACT; DRIED BREAKTHROUGH BLOOD NOTED. PATIENT DENIES PAIN. PEDAL PULSES PRESENT VIA DOPPLER. DAUGHTER AT BEDSIDE. 1650 PATIENT DISCHARGED HOME WITHOUT INCIDENT.
== END 2021-04-19 16:45 | disposition home or self-care (01) ==
LOC: MHTC 13:15 → ICUW 15:53 → MHTC 04-19 16:45
DX: T82.868A Thrombosis due to vascular prosthetic devices, implants and grafts, initial encounter (principal); Y83.2 Surgical operation with anastomosis, bypass or graft as the cause of abnormal reaction of the patient, or of later complication, without mention of misadventure at the time of the procedure
CPT/HCPCS: 36247; 36415; 37184; 37185; 37211; 37214; 37226; 37228; 37232; 37252; 37253; 75716; 75774; 76937; 85018; 85347; 85384; 99152; 99153; A9270; C1725; C1751; C1757; C1760; C1769; C1874; C1887; C1894; J1644; J2250; J2997; J3010; J7030; J7040; J7050; Q9967

== ENCOUNTER 2021-07-23 06:39 | Inpatient (IN) | payer MEDICARE ==
[~2021-07-23] VITALS: Ht 182.9 cm; Wt 103.9 kg
[2021-07-23] MEDS ORDERED: CLOP75 PO (07:21)
[2021-07-23] MEDS ORDERED: NITR.4SL SL (07:22)
[2021-07-23] MEDS ORDERED: METO25ER PO (07:22)
--- NOTE | 2021-07-23 12:30 | NUR ---
INITIAL ASSESSMENT PATIENT ARRIVED FROM BEVERAGE DISTILLER AT 1110. PATIENT ALERT AND ORIENTED X 4. PATIENT AFEBRILE. PATIENT HAS LIMITED ROM TO LLE SHEATH TO L FEM. PATIENT SUPINE AND HAS BEEN EDUCATED ON ACTIVITY RESTRICTIONS. PATIENT STATES HIS FEET OR NUMB AND HAVE SLIGHT PAIN BUT THAT PAIN IS MANAGEABLE AT THIS TIME. LUNGS CLEAR THROUGHOUT. PATIENT HAS OCCASIONAL, DRY COUGH. PATIENT SATTING 90% AND GREATER ON RA. PATIENT 100% PACED AT THIS TIME. HR 50S TO 60S. SBP 120S TO 170S. ALL PULSES DOPPLERED IN FEET. FEET COOL. GI WNL. LAST BM YESTERDAY. PATIENT USES URINAL WITH ASSISTANCE. URINE YELLOW IN COLOR. L FEM SHEATH SITE WNL; NO BLEEDING, BRUISING, OR HEMATOMA NOTED. TPA INFUSING AT 1 MG/ HOUR INTO SHEATH AND HEPARIN INFUSING AT 10 ML/ HOUR INTO PERIPHERAL IV. PATIENT ORIENTED TO UNIT, ROOM AND CALL SYSTEM. BED LOW, CALL LIGHT IN REACH. WILL CONTINUE TO MONITOR PATIENT FREQUENTLY THROUGHOUT SHIFT.
--- NOTE | 2021-07-23 16:40 | NUR ---
PATIENT AFEBRILE. PATIENT IN SR OR PACED. HR IN THE 60S. SBP UP TO THE 190S. DR. DENG CALLED AND NOTIFIED. PRN HYDRALAZINE GIVEN. NO OTHER ACUTE CHANGES TO NOTE ON AT THIS TIME. WILL CONTINUE TO MONITOR.
--- NOTE | 2021-07-23 18:43 | NUR ---
SHIFT SUMMARY PATIENT REMAINED ALERT AND ORIENTED X 4. AFEBRILE. PATIENT GIVEN PRN FENTANYL AND NORCO FOR COMPLAINTS OF R FOOT AND LEG PAIN. ACTIVITY RESTRICTION REMAINS IN PLACE FOR SHEATH IN L FEM. PATIENT HAS REMAINED SATTING 90% AND GREATER ON RA. PATIENT SR TO PACED, HR 50S TO 80S. SBP 1-TEENS TO 190S. PULSES REMAIN DOPPLERED IN BILAT FEET. GI WNL. NO BM THIS SHIFT. PATIENT ON REGULAR DIET UNTIL MIDNIGHT. PATIENT VOIDED 400 MLS YELLOW URINE INTO URINAL WITH NURSE ASSISTANCE. L FEM SITE REMAINS WNL; NO BLEEDING, BRUISING, OR HEMATOMA NOTED. TPA REMAINS INFUSING AT 1 MG/ HOUR AND HEPARIN AT 10 MLS/ HOUR. PATIENT TO GO BACK TO ADMINISTRATIVE AIDE TOMORROW. NO COMPLAITNS AT THIS TIME. BED LOW, CALL LIGHT IN REACH. REPORT WILL BE GIVEN TO ONCOMING TYRE FITTER NURSE SHORTLY.
--- NOTE | 2021-07-23 19:25 | NUR ---
ASSUMED CARE OF PATIENT FROM LISSA ESTRADA. RECEIVED LAB RESULT OF FIBRINOGEN AND CALL MADE IMMEDIATELY TO . ORDERS RECEIVED TO STOP tPA AND TO CONSULT PHARMACY FOR HEPARIN DOSING. READ BACK ORDERS TO HIM. PT'S tPA STOPPED AND HEPARIN PLACED ON SHEATH. AWAIT FURTHER INSTRUCTIONS FROM PHARMACY.
[2021-07-23 20:20] LABS: BASOPHILS ABSOLUTE AUTO 0.05 K/mm3 (0.00-0.23); BASOPHILS PERCENT AUTO 1 % (0-2); EOSINOPHILS ABSOLUTE AUTO 0.08 K/mm3 (0.00-0.68); EOSINOPHILS PERCENT AUTO 1 % (0-6); Hematocrit 47.7 % (37.0-53.0); Hemoglobin 15.9 g/dL (13.5-17.5); IMMATURE GRAN ABSOLUTE AUTO 0.05 K/mm3 (0.00-0.10); IMMATURE GRAN PERCENT AUTO 1 % (0-1); LYMPHOCYTES ABSOLUTE AUTO 0.83 K/mm3 (0.84-5.20); LYMPHOCYTES PERCENT AUTO 8 % (21-46); MONOCYTES ABSOLUTE AUTO 0.73 K/mm3 (0.16-1.47); MONOCYTES PERCENT AUTO 7 % (4-13); Mean Corpuscular HGB 31.9 pg (26.0-34.0); Mean Corpuscular HGB Conc 33.3 g/dL (31.5-36.5); Mean Corpuscular Volume 96 fL (80-100); Mean Platelet Volume 10.2 fL (9.1-12.4); NEUTROPHILS ABSOLUTE AUTO 8.66 K/mm3 (1.96-9.15); NEUTROPHILS PERCENT AUTO 83 % (41-73); Platelet Count 91 K/mm3 (150-400); RDW Coefficient Variation 12.4 % (11.7-14.2); RDW Standard Deviation 44.1 fL (35.1-46.3); Red Blood Cell Count 4.99 M/mm3 (4.30-5.90)
[2021-07-23 20:36] LABS: Anti-Xa UFH, PHA Monitoring <0.10 IU/mL; Prothrombin Time Results 18.2 Sec (9.7-11.5)
--- NOTE | 2021-07-24 00:21 | NUR ---
TYSON HAS BEEN SLEEPING ASKING WHAT TIME IT IS AND REALIZING HE ONLY HAD SLEPT A COUPLE OF HOURS. HE SAID, "I GUESS IT WAS RESTFUL". LEFT GROIN SITE CONTINUES WITH SHEATH IN PLACE WITH HEPARIN GTT INFUSING. THE HEMATOMA HAS NOT GROWN ANY IN SIZE, IT WAS OUTLINED AT THE START OF THE SHIFT. WILL CONTINUE TO MONITOR. PT HAD LAST DRINKS OF HIS APPLE JUICE AND HE IS NOW NPO FOR HIS PROCEDURE IN THE AM. PT DENIES ANY NEED FOR ADDITIONAL PAIN MEDICATIONS AT THIS TIME.
--- NOTE | 2021-07-24 05:48 | NUR ---
TYSON HAS DONE WELL T/O THE SHIFT, HE HAS BEEN AWAKENED BY STAFF FOR EITHER MEDS, LABS, OR SHEATH ASSESSMENTS. HE HAS BEEN COOPERATIVE AND REMAINED WITH THE LEFT LEG STRAIGHT. HE DOES COMPLAIN OF BACK PAIN FROM BEING STILL, HE HAS REFUSED MEDICATION FOR PAIN, STATING HE IS 2/10 AND THE ORAL PAIN MEDICATION PRIOR TO SHIFT CHANGE WAS VERY HELPFUL. HE CONTINUES WITH DOPPLER PULSES IN THE FEET/ANKLES; LEFT > RIGHT. THE RIGHT FOOT IS MORE EDEMATOUS, EVEN TEMP. SHEATH REMAINS IN GOOD PLACEMENT, SMALL HEMATOMA CONTINUES JUST OUTSIDE THE MARGIN DRAWN ON AT CHANGE OF SHIFT. HEPARIN PER PHARMACY INFUSING @ 17U/KG INTO THE SHEATH. WILL CONTINUE TO MONITOR AND TREAT NECESSARY.
--- NOTE | 2021-07-24 07:55 | NUR ---
AM NOTE.... ASSUMED CARE OF PT AT 0700, THE PT IS A&Ox4 SHEATH IS STABLE IN THE LEFT GROIN, HEMATOMA THAT WAS PRESENT PER NOC SHIFT RN HAS IMPROVED, THE AREA IS A LITTLE FIRM, VERY TENDER TO PALPATION, HEPARIN RUNNING PER ORDERS INTO THE SHEATH. THE PT'S PULSES IN THE LOWER EXTREMITIES ARE FOUND WITH DOPPLER ONLY. THE PT'S RIGHT FOOT IS RED AND WARM, THE PT'S LEFT FOOT IS SLIGHTLY MORE COOL THAN THE RIGHT. THE PT HAS 2+ PITTING EDEMA NOTED TO HIS BLE. THE PT IS ON RA WITH O2 SATS >90% L/S COARSE IN THE UPPER LOBES CLEAR T/O THE REST. BT PRESETN AND HYPOACTIVE, ABD IS SOFT AND NONTENDER TO PALP. THE PT WAS C/O OF SEVERE BACK PAIN, HE WAS MEDICATED PER EMAR WITH GOOD RESULTS. CALL [facility] WILL CONTINUE TO MONITOR.
--- NOTE | 2021-07-24 10:50 | NUR ---
PT UPDATE.... AT APROX 0930 THE PT'S BP BECAME HYPOTENSIVE WITH SBPs IN THE 90'S THE PT HAD GOTTEN HIS AM HOME DOSE BP MEDICATIONS SUCH LISINOPRIL AND IMDUR. THE PT'S BPs CONTINUED TO TREND DOWN. DR. DENG NOTIFIED AND AN ORDER FOR 2L NS BOLUS WAS OBTAINED. PLAN FOR THE PT TO RETURN TO THE HEDIS ANALYST APROX 1400 TODAY. THERE ARE NO CHANGES TO THE PT'S RIGHT GROIN SITE, NO BLEEDING, SWELLING OR HEMATOMA, THE PT IS C/O OF BACK PAIN BUT STATES IT IS HIS NORMAL CHRONIC BACK PAIN. THE PT WAS GIVEN PAIN MEDICATIONS PER EMAR FOR THE BACK PAIN. THE BOLUS WAS STARTED AT 1049. WILL CONTINUE TO MONITOR.
--- NOTE | 2021-07-24 13:00 | NUR ---
PATIENT BEING TAKEN TO LABOR DELIVERY SPECIALIST AT THIS TIME.
--- NOTE | 2021-07-24 16:43 | NUR ---
PT UPDATE.... PT RETURNED FROM THE RESIDENTIAL TREATMENT STAFF AT 1630, THE PT IS A&Ox4 THE PT'S HR IS STABLE PACED IN THE 60'S, PT'S BP IS HYPOTENSIVE AT 89/59 WITH A MAP OF 66. THE PT'S RIGHT FOOT IS PALE AND COLD TO THE TOUCH, WHEN HE LEFT FOR THE RESIDENTIAL TREATMENT STAFF IT WAS RED AND WARM. NO PULSES FOUND ON THE RIGHT FOOT EVEN WITH THE USE OF THE DOPPLER, DR. DENG WAS MADE AWARE OF THIS, NO NEW ORDERS. DOPPLER PULSES FOUND ON THE LEFT. SHEATH CONTINUES TO BE IN PLACE WITH HEPARIN RUNNING PER ORDERS. NO SWELLING OR HEMATOMA NOTED TO THE SITE, THERE IS A SMALL AMOUNT OF OOZING NOTED AT THE SITE. DRY BLOOD AND BRUISING IS NOTED TO THE POSTERIOR TIBIAL AREA. THE PT WAS PLACED ON 2L NC WHILE SLEEPING OFF THE SEDATION FROM THE PROCEDURE D/T O2 SATS AT 91-92%. CALL LIGHT IN REACH WILL CONTINUE TO MONITOR.
[2021-07-24 17:09] LABS: Hematocrit 38.8 % (37.0-53.0); Hemoglobin 12.7 g/dL (13.5-17.5)
--- NOTE | 2021-07-24 19:27 | NUR ---
SHIFT SUMMARY.... SINCE THE PT RETURNED FROM THE BIOMATHEMATICIAN HIS VS HAVE BEEN STABLE, PER DR. DENG THE PT'S HEPARIN DRIP WAS CHANGED TO 10MLS/HR AND THE TPA WAS STARTED PER ORDERS AT 0.5MG/HR IN THE SHEATH SIDE PORT. THERE IS A SMALL AMOUNT OF OOZING NOTED AT THE SHEATH SITE, THE AREA WAS ASSESSED WITH THE CHUCKY JUSTIN RN AND MARKED TO ASSESS THE OOZING. THE PT WAS C/O OF 7/10 RIGHT NECK AND HEAD PAIN, THIS RN HAD MEDICATED THE PT FOR THIS PAIN, SHORTLY AFTER THE PT WAS MEDICATED FOR PAIN HE STATED THE PAIN WAS GETTING WORSE AND STARTED TO SLUR HIS WORDS, A NEURO ASSESSMENT WAS DONE BY BERNARDO ALCARAZ, THIS WAS NEGATIVE PER HER ASSESSMENT, THE PT'S FONDANT MACHINE OPERATOR WERE EQUAL, NO FACIAL DROOP NOTED. NO PULSES WERE FOUND ON THE RIGHT FOOT, DOPPLER PULSES WERE FOUND ON THE LEFT. THE PT'S RIGHT FOOT IS PALE AND COOL, CAP REFIL IS >3 SECONDS. THE PT'S LEFT FOOT IS PALE AND COOL WITH CAP REFIL >3 SECONDS. CALL LIGHT IN REACH, REPORT GIVEN TO KEILA JUSTIN RN.
--- NOTE | 2021-07-24 20:00 | NUR ---
TYSON IS COMPLAINING OF RIGHT HEAD AND NECK PAIN, FULL NEUROLOGICAL ASSESSMENT IS COMPLETED DURING REPORT. HE HAS NO DEFICITS, STIFF JOINTS ARE HIS ONLY CONCERN. HE HAS LOWER EXTREMITY EDEMA, RIGHT > LEFT TO MID CALF. HIS PULSES ARE FOUND EASILY BY DOPPLAR ON THE LEFT, MORE DIFFICULT TO FIND THE PULSES IN THE RIGHT FOOT, ABLE TO HEAR SOME BLOOD FLOW. CAP REFILL IS >3 SEC AND COLOR AND TEMP IS GOOD. MOVEMENT IS GOOD, SENSATION IS UNCHANGED FROM PRIOR TO ADMISSION. HE HAS BEEN UNABLE TO VOID SINCE RETURNING FROM MEDICAL BILLING ASSISTANT, HIS ABDOMEN IS FIRM, DISCUSSED PLACEMENT OF CATHETER WITH HIM. HE AGREED. 14F CATHETER PLACED WITHOUT ANY DIFFICULTY, >300ML RETURN OF SHOLA URINE. PT STATES HE DOESN'T FEEL ANY DIFFERENTLY, RETURNS TO RESTING QUIETLY AFTER CHATTING.
[2021-07-24 20:12] LABS: Source, Urine Foley catheter
[2021-07-24 20:15] LABS: Bilirubin, Urine Neg (Neg); Blood, Urine 1+ (Neg); Glucose Qualitative, Urine Neg (Neg); Ketones, Urine Neg (Neg); Leukocyte Esterase, Urine Neg (Neg); Nitrite, Urine Neg (Neg); Protein, Urine 2+ (Neg); Specific Gravity, Urine 1.015 (1.003-1.022); Urobilinogen, Urine NORM (Normal)
[2021-07-24 20:33] LABS: Appearance, Urine Clear (Clear); Color, Urine Pale Yellow (P-Yellow)
[2021-07-24 20:34] LABS: Bacteria Rare /hpf; Granular Casts Rare /lpf (0); Hyaline Casts 0-2 /lpf (0-2); Mucus Heavy (0-Heavy); Red Blood Cells, Urine 0-2 /hpf (0-2); Squamous Epithelial Cells Rare /hpf (Few); White Blood Cells, Urine 0-2 /hpf (0-5)
--- NOTE | 2021-07-24 21:45 | NUR ---
HERE TO SEE PATIENT. NO CHANGES.
--- NOTE | 2021-07-25 04:25 | NUR ---
TYSON FINALLY LET US HELP REPOSITION HIM, HIS NECK AND SHOULDERS WERE REALLY BOTHERING HIM. HE IS HAVING DOPPLAR PULSES OF THE FEET, L>R, BUT IMPROVEMENT IN THE RIGHT. GOOD WARMTH AND COLOR TO THE EXTREMITIES. NO CHANGE IN THE DRAINAGE FROM THE SITE OF THE SHEATH IN THE LEFT GROIN. HEPARIN CONTINUES AT 10ML PER HOUR PER , tPA STILL ON THE 10HOUR 0.5. LABS TO BE DRAWN AGAIN SHORTLY. HE HAS HAD OVER 900ML OUT HIS STRATTON, TAKING IN FLUIDS WELL. HAS STOPPED THOSE FOR POSSIBLE PROCEDURE AGAIN IN THE LATER AM.
[2021-07-25 05:36] LABS: BASOPHILS ABSOLUTE AUTO 0.04 K/mm3 (0.00-0.23); BASOPHILS PERCENT AUTO 1 % (0-2); EOSINOPHILS ABSOLUTE AUTO 0.13 K/mm3 (0.00-0.68); EOSINOPHILS PERCENT AUTO 2 % (0-6); Hematocrit 38.2 % (37.0-53.0); Hemoglobin 12.4 g/dL (13.5-17.5); IMMATURE GRAN ABSOLUTE AUTO 0.04 K/mm3 (0.00-0.10); IMMATURE GRAN PERCENT AUTO 1 % (0-1); LYMPHOCYTES ABSOLUTE AUTO 0.93 K/mm3 (0.84-5.20); LYMPHOCYTES PERCENT AUTO 11 % (21-46); MONOCYTES ABSOLUTE AUTO 1.03 K/mm3 (0.16-1.47); MONOCYTES PERCENT AUTO 12 % (4-13); Mean Corpuscular HGB Conc 32.5 g/dL (31.5-36.5); Mean Corpuscular Volume 99 fL (80-100); NEUTROPHILS ABSOLUTE AUTO 6.18 K/mm3 (1.96-9.15); NEUTROPHILS PERCENT AUTO 74 % (41-73); Platelet Count 77 K/mm3 (150-400); RDW Coefficient Variation 12.4 % (11.7-14.2); RDW Standard Deviation 44.9 fL (35.1-46.3); Red Blood Cell Count 3.88 M/mm3 (4.30-5.90); White Blood Cell Count 8.35 K/mm3 (4.00-11.30)
--- NOTE | 2021-07-25 06:03 | NUR ---
TYSON IS HAVING A BIT MORE PAIN OVER THE SHIFT THAN THE PREVIOUS NIGHT. HE HAS BEEN MEDICATED WITH ORAL PAIN MEDS AND IV FENTANYL. HE CONTINUES WITH BLE EDEMA, PULSES BY DOPPLAR L>R, BUT RIGHT HAS IMPROVED T/O THE SHIFT. GOOD WARMTH AND COLOR. SENSATION UNCHANGED FROM PRIOR TO ADMISSION. LEFT GROIN SITE INTACT, tPA INFUSING @ 0.25 MG/HR IN SHEATH. HEPARIN @ 10ML/HR PER . PT WITH KPAD TO RIGHT NECK/SHOULDER WITH GOOD RELIEF. NO FURTHER CHANGES. WILL CONTINUE TO MONITOR AND REPORT TO NEXT SHIFT.
[2021-07-25 06:09] LABS: Anion Gap 6 mmol/L (6-16); Blood Urea Nitrogen 13 mg/dL (8-24); Bun/Creatinine Ratio 12.3 (12.0-20.0); CO2, Blood 21 mmol/L (21-32); Calcium, Blood 8.2 mg/dL (8.5-10.1); Chloride, Blood 110 mmol/L (98-108); Creatinine, Blood 1.06 mg/dL (0.60-1.20); Glomerular Filtration Rate >60 (60-); Glucose, Blood 108 mg/dL (70-99); Potassium, Blood 4.1 mmol/L (3.5-5.5); Sodium, Blood 137 mmol/L (136-145)
--- NOTE | 2021-07-25 07:10 | NUR ---
AM NOTE.... ASSUMED CARE OF PT AT 0700, THE PT IS A&Ox4, VS STABLE AT THIS TIME HE IS IN SR/PACED IN THE 60'S, THE PT IS ON RA WITH O2 SATS >95% L/S COARSE T/O THE PT IS A CURRENT SMOKER. BT PRESENT AND HYPOACTIVE, ABD IS SOFT AND NONTENDER TO PALP. THE PT HAS 2+ EDEMA TO HIS BLE PULSES TO THE LEFT FOOT ARE FOUND WITH DOPPLER, THE RIGHT DORSAL PEDIS PULSE IS FOUND WITH DOPPLER BUT THE RIGHT P. TIBIAL IS NOT FOUND DURING THIS ASSESSMENT, THE PT'S RIGHT FOOT IS COOL AND PALE TO THE TOUCH, THE PT'S LEFT FOOT IS SLIGHTLY WARMER THAN THE RIGHT AND PALE. THE PT'S RIGHT GROIN SITE WITH SHEATH IS STABLE, NO SWELLING, BLEEDING OR HEMATOMA NOTED, THE AREA IS PAINFUL TO PALATION BUT THIS IS NOT A CHANGE. THE PT'S STRATTON IS PATENT AND DRAINING TO GRAVITY. THE HEPARIN GTT IS RUNNIG PER ORDERS AT 10MLS/HR, THE tPA IS RUNNING PER ORDERS AT 0.25MG/HR THROUGH THE SHEATH SIDE PORT. PLAN OF CARE IS TO TAKE THE PT BACK TO THE PE MANAGER TODAY. CALL LIGHT IN REACH WILL CONTINUE TO MONITOR.
--- NOTE | 2021-07-25 10:44 | NUR ---
PT UPDATE.... THE PT'S RIGHT FOOT IS NOW WARM AND STARTING TO TURN RED, THE PT HAS BEEN C/O INCREASED PAIN TO THE RIGHT HEEL, THE PT'S RIGHT HEEL FELT SOFT AND "MUSHY" TO THIS RN, THE PT'S HEEL WAS SLIGHTLY ELEVATED TO KEEP IT OFF OF THE BED TO PREVENT ANY BREAKDOWN TO THE HEEL, PER THE PT THIS HELPED IMPROVE SOME OF THE PAIN TO THE RIGHT HEEL. PLAN IS FOR THE PT TO GO TO THE FAMILY PROGRAM SPECIALIST THIS AFTERNOON. THE PT'S GROIN SITE IS STABLE AT THIS TIME. CALL LIGHT IN REACH WILL CONTINUE TO MONITOR.
--- NOTE | 2021-07-25 15:51 | NUR ---
Initial Interview with [facility] Community Assembler [employer] 1. Who did you speak with? Spoke with patient 2. What is the patient's prior level of functions? Patient lives independently with daughters Robyn and Sharla. Patient is able to perform ADLs without assistance, but uses a 2WW and cane when needed. Patient states he still cooks and cleans. He likes to perform a host of hobbies and enjoys hunting. Patient resides in a single story dwelling without stairs. Patient's in 2019. 3. 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 4. Does patient still drive? Yes 5. POA/PCP/NOK: NOK: Lacie Duvall/PCP [facility] HAIR WORKER [employer] 6. Discharge goals: Home/if Home Health services needed Klaus does not have a preference -Medication Management: self-management -Preferred Pharmacy: [facility] -Housekeeping need: patient performs cooking and cleaning at his residence 7. List barriers to discharge: None known at this time 8. Discharge Plan: [facility] with [facility]: [facility]. Clare Wilburn from [facility] contacted. 9. PCP Follow up appointment: Will be scheduled within seven calendar days of discharge 10. Other Notes: patient is not a . Daughter Lacie's number [phone]
--- NOTE | 2021-07-25 17:57 | NUR ---
SHIFT SUMMARY.... THE PT WAS TAKEN TO THE HR ASSOCIATE AT 1640, THE PT RETURNED FROM THE HR ASSOCIATE AT 1745, THE SHEATH WAS REMOVED IN THE HR ASSOCIATE AND AN ANGIO SEAL WAS PLACED, SMALL AREA OF BRUISING NOTED BUT NO SWELLING OR HEMATOMA IS NOTED, THE PT DENIES ANY PAIN TO THE SITE OR HIS FEET AT THIS TIME, PULSES ARE FOUND WITH DOPPLER TO BOTH FEET, THE PT'S RIGHT FOOT IS PINK AND WARM. THE PT'S VS STABLE AT THIS TIME. THE PT IS ON RA WITH O2 SATS >95%. 2+ EDEMA NOTED TO THE PT'S BLS. PLAN IS FOR THE PT TO STAY THE NIGHT AN D/C HOME TOMORROW. CALL LIGHT IN REACH WILL CONTINUE TO MONITOR UNTIL REPORT IS GIVEN TO ONCOMING RN.
[2021-07-25 18:29] LABS: Hematocrit 38.3 % (37.0-53.0); Hemoglobin 12.5 g/dL (13.5-17.5)
--- NOTE | 2021-07-25 20:30 | NUR ---
TRANSFER TO PCU PT TRANSFERED TO PCU AT 2004 VIA ICU BED. ALL BELONGINGS WITH PT. PT ALERT/ORIENTED X4 AND ABLE TO MAKE HIS NEEDS KNOWN. LT GROIN SITE SHOWING NO SIGNS OF BLEEDING OR HEMORAGE. BILATERAL PEDAL PUSLES FOUND WITH DOPPLER. PT ON RA. BP STABLE.
--- NOTE | 2021-07-25 22:38 | NUR ---
ICU XFER. A/OX4. REPORTS BACK OF HEAD PAIN THAT HE'S BEEN HAVING, MEDICATED PER EMAR WITH GREAT RELIEF. L LOWER LEG RESTRICTION. VSS. Q4 NEURO CHECKS. SITE IS WITH MINIMAL OLD SANGUINOUS DRAINAGE. MAINTAINS ABOVE 95% ON RA, HOWEVER LS COARSE T/O. PATIENT REPORTS SMOKING AND WANTING TO QUIT. SR ON TELE AVG 80'S WITH SOME PACED BEATS. PULSES BY DOPPLER ONLY, VERY FAINT PEDAL/TIBIAL PULSES BL. R FOOT WARM TO TOUCH AND L FOOT COOL TO TOUCH. BLE 3+ PITTING EDEMA. URINARY CATH DRAINING TO GRAVITY SHOLA URINE. WILL UPDATE CHANGES OCCUR.
--- NOTE | 2021-07-26 16:11 | NUR ---
DISCHARGE NOTE: PATIENT WAS EDUCATED ON DISCHARGE INSTRUCTIONS. HE VERBALIZED UNDERSTANDING OF INSTRUCTIONS. IV WAS TAKEN OUT AND WNL. PAIN IS MANAGED WITH PO PAIN MEDICATIONS. HIS LEFT GROIN SITE HAS TEGADERM WITH GAUZE AND IS C/D/I. PATIENTS PULSES ARE BEST HEARD WITH DOPPLER AND ARE STRONG. HE IS ALERT AND ORIENTED X4. VS ARE WNL AND IS ON RA. PATIENT DENIES CHEST PAIN OR PRESSURE. HE IS TOLERATING PO INTAKE AND IS VOIDING. PATIENT IS CURRENTLY GETTING DRESSED AND WILL BE WHEELCHAIRED OUT TO HIS DAUGHTERS CAR TO BE TAKEN HOME. PATIENT HAS ALL OF HIS PERSONAL BELONGINGS IN HAND.
--- NOTE | 2021-07-26 16:18 | NUR ---
Per Dr. Duenas discharge appropriate on: 07/26/21. Patient does not oppose discharge. Patient discharged to residence with Home Health orders. Clare Jasbirlemuel from [facility] notified of discharge and will initiate services on 07/27/21. Daughter Aissatou provided transportation to residence. DME: PTOT recommendations 2WW; per daughter Lacie patient has a 2WW at the residence in good repair. [facility] will contact patient to schedule hospital follow-up with PCP JC New. Patient to contact PCP for medication management questions/health or social service needs or if condition worsens patient to go to urgent care. No barriers to discharge.
--- NOTE | 2021-07-26 17:09 | NUR ---
Received referral from [facility] Dust Mixer (Chloe Forman) on 07/26/2021. Patient was to discharge with orders for home health and elected [facility]. However, review of patient's records indicate that discharging hospitalist (Dr. Harding) did not write home health orders upon discharge. No further interventions required. Clare Wilburn Referral Liaison
== END 2021-07-26 16:57 | disposition home or self-care (01) | DRG 271 ==
LOC: MHTC 06:39 → ICUE 10:53 → MHTC 12:33 → ICUE 07-24 16:55 → PCU 07-25 20:17
PROVIDERS: Internal Medicine; Pharmacist; ADMIT Radiology Diagnostic Radiology
PROC: 04CK3ZZ Extirpation of Matter from Right Femoral Artery, Percutaneous Approach (ICD-10-PCS; principal; 2021-07-23)
PROC: 04CM3ZZ Extirpation of Matter from Right Popliteal Artery, Percutaneous Approach (ICD-10-PCS; 2021-07-23)
PROC: B41F1ZZ Fluoroscopy of Right Lower Extremity Arteries using Low Osmolar Contrast (ICD-10-PCS; 2021-07-23)
PROC: 04CK3ZZ Extirpation of Matter from Right Femoral Artery, Percutaneous Approach (ICD-10-PCS; 2021-07-24)
PROC: 04CM3ZZ Extirpation of Matter from Right Popliteal Artery, Percutaneous Approach (ICD-10-PCS; 2021-07-24)
PROC: 04CT3ZZ Extirpation of Matter from Right Peroneal Artery, Percutaneous Approach (ICD-10-PCS; 2021-07-24)
PROC: 047T3ZZ Dilation of Right Peroneal Artery, Percutaneous Approach (ICD-10-PCS; 2021-07-24)
PROC: 047P3ZZ Dilation of Right Anterior Tibial Artery, Percutaneous Approach (ICD-10-PCS; 2021-07-24)
PROC: B41F1ZZ Fluoroscopy of Right Lower Extremity Arteries using Low Osmolar Contrast (ICD-10-PCS; 2021-07-24)
DX: T82.868A Thrombosis due to vascular prosthetic devices, implants and grafts, initial encounter (principal); I74.3 Embolism and thrombosis of arteries of the lower extremities; D69.6 Thrombocytopenia, unspecified; E03.9 Hypothyroidism, unspecified; E78.5 Hyperlipidemia, unspecified; J44.9 Chronic obstructive pulmonary disease, unspecified; N40.0 Benign prostatic hyperplasia without lower urinary tract symptoms; I10 Essential (primary) hypertension; I25.10 Atherosclerotic heart disease of native coronary artery without angina pectoris; I25.2 Old myocardial infarction; F17.210 Nicotine dependence, cigarettes, uncomplicated; Z79.02 Long term (current) use of antithrombotics/antiplatelets; Z71.6 Tobacco abuse counseling; Z79.01 Long term (current) use of anticoagulants; Z95.1 Presence of aortocoronary bypass graft; Z86.711 Personal history of pulmonary embolism; Z98.890 Other specified postprocedural states; Z95.0 Presence of cardiac pacemaker; Z91.018 Allergy to other foods; Z79.82 Long term (current) use of aspirin; Z79.899 Other long term (current) drug therapy; Y71.2 Prosthetic and other implants, materials and accessory cardiovascular devices associated with adverse incidents
CPT/HCPCS: 36415; 37184; 37185; 37211; 37213; 37224; 37229; 37232; 37233; 51702; 75716; 75774; 76937; 80048; 81001; 85014; 85018; 85025; 85347; 85384; 85520; 85610; 85730; 97110; 97162; 99152; 99153; A9270; C1714; C1724; C1725; C1757; C1760; C1769; C1874; C1887; C1894; J0360; J1170; J1644; J2250; J2997; J3010; J7030; J7040; J7050; Q9967

== ENCOUNTER 2021-10-10 17:50 | Observation (INO) | payer MEDICARE ==
[~2021-10-10] VITALS: Ht 182.9 cm; Wt 90.7 kg
[~2021-10-10 17:50] MED LIST changes: +CLOP75 PO; +METO25ER PO
[2021-10-10 18:42] LABS: BASOPHILS ABSOLUTE AUTO 0.04 K/mm3 (0.00-0.23); BASOPHILS PERCENT AUTO 0 % (0-2); EOSINOPHILS ABSOLUTE AUTO 0.01 K/mm3 (0.00-0.68); EOSINOPHILS PERCENT AUTO 0 % (0-6); Hemoglobin 14.8 g/dL (13.5-17.5); IMMATURE GRAN ABSOLUTE AUTO 0.04 K/mm3 (0.00-0.10); IMMATURE GRAN PERCENT AUTO 0 % (0-1); LYMPHOCYTES PERCENT AUTO 3 % (21-46); MONOCYTES ABSOLUTE AUTO 0.47 K/mm3 (0.16-1.47); MONOCYTES PERCENT AUTO 4 % (4-13); Mean Corpuscular HGB 29.8 pg (26.0-34.0); Mean Corpuscular HGB Conc 32.9 g/dL (31.5-36.5); Mean Corpuscular Volume 91 fL (80-100); Mean Platelet Volume 11.3 fL (9.1-12.4); NEUTROPHILS ABSOLUTE AUTO 11.26 K/mm3 (1.96-9.15); NEUTROPHILS PERCENT AUTO 92 % (41-73); Platelet Count 102 K/mm3 (150-400); RDW Coefficient Variation 13.2 % (11.7-14.2); RDW Standard Deviation 44.5 fL (35.1-46.3); Red Blood Cell Count 4.97 M/mm3 (4.30-5.90); White Blood Cell Count 12.22 K/mm3 (4.00-11.30)
[2021-10-10 18:59] LABS: Albumin, Blood 3.5 g/dL (3.4-5.0); Bilirubin, Total 0.9 mg/dL (0.1-1.0); Bun/Creatinine Ratio 12.1 (12.0-20.0); Calcium, Blood 9.2 mg/dL (8.5-10.1); Creatinine, Blood 1.32 mg/dL (0.60-1.20); Globulin, Blood 3.6 g/dL (2.2-4.0); Total Protein, Blood 7.1 g/dL (6.4-8.2)
[2021-10-10 19:24] LABS: Appearance, Urine Hazy (Clear); Bilirubin, Urine Neg (Neg); Blood, Urine 3+ (Neg); Color, Urine Yellow (P-Yellow); Glucose Qualitative, Urine Neg (Neg); Ketones, Urine 1+ (Neg); Leukocyte Esterase, Urine 3+ (Neg); Nitrite, Urine Pos (Neg); Protein, Urine 2+ (Neg); Source, Urine Clean Catch; Urobilinogen, Urine NORM (Normal)
[2021-10-10 20:00] LABS: Bacteria Many /hpf; Red Blood Cells, Urine Rare /hpf (0-2); Squamous Epithelial Cells Rare /hpf (Few); White Blood Cells, Urine TNTC /hpf (0-5)
[2021-10-10 20:46] LABS: Influenza A, PCR NEGATIVE (NEGATIVE); Influenza B, PCR NEGATIVE (NEGATIVE); Resp Syncytial Virus, PCR NEGATIVE (NEGATIVE); SARS-Cov-2 (COVID-19) PCR, MMC NEGATIVE (NEGATIVE)
[2021-10-11 04:41] LABS: BASOPHILS ABSOLUTE AUTO 0.03 K/mm3 (0.00-0.23); BASOPHILS PERCENT AUTO 0 % (0-2); EOSINOPHILS ABSOLUTE AUTO 0.03 K/mm3 (0.00-0.68); EOSINOPHILS PERCENT AUTO 0 % (0-6); Hematocrit 39.5 % (37.0-53.0); Hemoglobin 12.8 g/dL (13.5-17.5); IMMATURE GRAN ABSOLUTE AUTO 0.02 K/mm3 (0.00-0.10); IMMATURE GRAN PERCENT AUTO 0 % (0-1); LYMPHOCYTES ABSOLUTE AUTO 0.65 K/mm3 (0.84-5.20); LYMPHOCYTES PERCENT AUTO 7 % (21-46); MONOCYTES PERCENT AUTO 7 % (4-13); Mean Corpuscular HGB 29.8 pg (26.0-34.0); Mean Corpuscular HGB Conc 32.4 g/dL (31.5-36.5); Mean Corpuscular Volume 92 fL (80-100); Mean Platelet Volume 11.4 fL (9.1-12.4); NEUTROPHILS ABSOLUTE AUTO 7.41 K/mm3 (1.96-9.15); NEUTROPHILS PERCENT AUTO 85 % (41-73); Platelet Count 80 K/mm3 (150-400); RDW Coefficient Variation 13.6 % (11.7-14.2); RDW Standard Deviation 45.7 fL (35.1-46.3); Red Blood Cell Count 4.29 M/mm3 (4.30-5.90); White Blood Cell Count 8.74 K/mm3 (4.00-11.30)
--- NOTE | 2021-10-11 05:00 | NUR ---
SHIFT SUMMARY 71 YR M ADMITTED FROM THE ED [facility] FOR SEPSIS D/T UTI. FULL CODE. PT IS A&O X 4 AND IS ABLE TO AMBULATE INDEPENDANTLY. HE IS PLEASANT AND COOPERATIVE. A FEW HOURS AFTER BEING TRANFERED TO THIS UNIT, THE PT C/O NAUSEA AND BEING COLD. HE CURRENTLY HAS A FEVER OF 100.8. WILL MEDICATE WITH TYLENOL PER EMAR.
[2021-10-11 05:14] LABS: Bun/Creatinine Ratio 13.1 (12.0-20.0); Calcium, Blood 8.4 mg/dL (8.5-10.1); Creatinine, Blood 1.3 mg/dL (0.60-1.20); Potassium, Blood 4.1 mmol/L (3.5-5.5)
--- NOTE | 2021-10-11 17:59 | NUR ---
SHIFT SUMMARY: PT A/O X 4 STANDBY ASSIST. PT IS PLEASANT AND COOPERATIVE WITH CARES. PT RESTED WITH EYES SHUT RR E/U OFF AND ON THROUGHOUT THE DAY. PT DEVELOPED 101.1 FEVER AT END OF DAY SHIFT. GAVE TYLENOL FOR FEVER. PT REPORTED FEELING "LIKE CHILLS ARE COMING ON". NO OTHER ACUTE CHANGES AT THIS TIME.
--- NOTE | 2021-10-12 05:04 | NUR ---
SHIFT SUMMARY 71 YR M ADMITTED ON 10/10/21 FOR SEPSIS D/T UTI. FULL CODE. NO ACUTE CHANGES THIS SHIFT. PT DID HAVE A SLIGHT FEVER AT BEGINNING OF SHIFT (101.1) AND BY MID SHIFT IT HAD COME DOWN TO 99.7. PT STATES DOC TOLD HIM HE WILL NO BE DISCHARGED UNTIL HE IS FEVER FREE FOR 24 HRS. HE IS TAKING TYLENOL PER EMAR. PT SLEPT MOST OF THIS SHIFT BUT IS OTHERWISE PLEASANT AND COOPERATIVE.
[2021-10-12] MEDS ORDERED: Cefpodoxime Pr100 MG PO (11:42)
--- NOTE | 2021-10-12 16:59 | NUR ---
SHIFT SUMMARY PATIENT DISCHARGED HOME. DISCHARGE PAPERWORK REVIEWED WITH PATIENT AND PATIENT'S DAUGHTER. ALL QUESTIONS ANSWERED. PRESCRIPTION FAXED TO PATIENTS PREFERRED [facility]. PHARAMACIST REVIEWED PATIENT'S MEDICATIONS WITH PATIENT. PATIENT AND ALL BELONGINGS TAKEN VIA WHEEL CHAIR TO PERSONAL VEHICLE AND DAUGHTER TRANSPORTED PATIENT HOME.
== END 2021-10-12 15:35 ==
LOC: ER 17:50 → MEDS 17:51 → ER 21:51 → MEDS 23:20
PROVIDERS: Physician Assistant; Student in an Organized Health Care Education/Training Program; ADMIT Family Medicine
DX: N39.0 Urinary tract infection, site not specified (principal); R65.20 Severe sepsis without septic shock; B96.20 Unspecified Escherichia coli [E. coli] as the cause of diseases classified elsewhere; B96.1 Klebsiella pneumoniae [K. pneumoniae] as the cause of diseases classified elsewhere; I25.10 Atherosclerotic heart disease of native coronary artery without angina pectoris; I10 Essential (primary) hypertension; N40.0 Benign prostatic hyperplasia without lower urinary tract symptoms; F17.210 Nicotine dependence, cigarettes, uncomplicated; J43.9 Emphysema, unspecified; R00.0 Tachycardia, unspecified; I95.9 Hypotension, unspecified; E86.0 Dehydration; D72.829 Elevated white blood cell count, unspecified; D75.839 Thrombocytosis, unspecified; E78.5 Hyperlipidemia, unspecified; N17.9 Acute kidney failure, unspecified; G47.33 Obstructive sleep apnea (adult) (pediatric); E03.9 Hypothyroidism, unspecified; Z91.018 Allergy to other foods; Z95.1 Presence of aortocoronary bypass graft; Z95.0 Presence of cardiac pacemaker; Z20.822 Contact with and (suspected) exposure to COVID-19
CPT/HCPCS: 0241U; 36415; 51798; 71046; 80048; 80053; 81001; 83605; 83735; 85025; 87077; 87086; 87186; 96374; 99285-25; A9270; J0696; J7030; J7120

== ENCOUNTER 2021-12-24 18:03 | Emergency (ER) | payer MEDICARE ==
[~2021-12-24] VITALS: Ht 182.9 cm; Wt 90.7 kg
[~2021-12-24 18:03] MED LIST changes: +Cefpodoxime Pr100 MG PO
[2021-12-24 19:00] LABS: BASOPHILS ABSOLUTE AUTO 0.06 K/mm3 (0.00-0.23); BASOPHILS PERCENT AUTO 1 % (0-2); EOSINOPHILS ABSOLUTE AUTO 0.21 K/mm3 (0.00-0.68); EOSINOPHILS PERCENT AUTO 3 % (0-6); Hematocrit 43.8 % (37.0-53.0); Hemoglobin 14.4 g/dL (13.5-17.5); IMMATURE GRAN ABSOLUTE AUTO 0.04 K/mm3 (0.00-0.10); IMMATURE GRAN PERCENT AUTO 1 % (0-1); LYMPHOCYTES ABSOLUTE AUTO 1.54 K/mm3 (0.84-5.20); LYMPHOCYTES PERCENT AUTO 19 % (21-46); MONOCYTES ABSOLUTE AUTO 0.83 K/mm3 (0.16-1.47); MONOCYTES PERCENT AUTO 10 % (4-13); Mean Corpuscular HGB 29.3 pg (26.0-34.0); Mean Corpuscular HGB Conc 32.9 g/dL (31.5-36.5); Mean Corpuscular Volume 89 fL (80-100); Mean Platelet Volume 10.5 fL (9.1-12.4); NEUTROPHILS ABSOLUTE AUTO 5.41 K/mm3 (1.96-9.15); NEUTROPHILS PERCENT AUTO 67 % (41-73); Platelet Count 153 K/mm3 (150-400); RDW Coefficient Variation 14.5 % (11.7-14.2); RDW Standard Deviation 46.7 fL (35.1-46.3); Red Blood Cell Count 4.91 M/mm3 (4.30-5.90); White Blood Cell Count 8.09 K/mm3 (4.00-11.30)
[2021-12-24 19:16] LABS: Albumin, Blood 3.3 g/dL (3.4-5.0); Albumin/Globulin Ratio 0.8 (0.8-1.8); Bilirubin, Total 0.6 mg/dL (0.1-1.0); Calcium, Blood 9.1 mg/dL (8.5-10.1); Creatinine, Blood 1.54 mg/dL (0.60-1.20); Potassium, Blood 4.2 mmol/L (3.5-5.5); Total Protein, Blood 7.3 g/dL (6.4-8.2)
[2021-12-24] MEDS ORDERED: BENZ100A PO (22:37)
== END 2021-12-24 22:30 | disposition home or self-care (01) ==
LOC: ER 18:03
PROVIDERS: Student in an Organized Health Care Education/Training Program
DX: J20.9 Acute bronchitis, unspecified (principal); J44.0 Chronic obstructive pulmonary disease with (acute) lower respiratory infection; F17.210 Nicotine dependence, cigarettes, uncomplicated; Z87.19 Personal history of other diseases of the digestive system; Z95.1 Presence of aortocoronary bypass graft; Z95.0 Presence of cardiac pacemaker; Z79.02 Long term (current) use of antithrombotics/antiplatelets; Z79.01 Long term (current) use of anticoagulants; Z79.899 Other long term (current) drug therapy
CPT/HCPCS: 36415; 71045; 80053; 85025

== ENCOUNTER 2022-04-23 12:08 | Day surgery (SDC) | payer MEDICARE ==
[~2022-04-23] VITALS: Ht 182.9 cm; Wt 96.6 kg
[~2022-04-23 12:08] MED LIST changes: +BENZ100A PO
[2022-04-23] MEDS ORDERED: ALBU2.5V5 (12:36)
[2022-04-23] MEDS ORDERED: XARELTO20 MG (12:37)
--- NOTE | 2022-04-23 14:10 | NUR ---
04/23/22 1410 AIXA SUMMERS THIS RN WENT TO BREAK LISSA KRAUS FOR AFTERNOON BREAK AND THEY HAD JUST RETURNED TO ROOM FROM PROCEDURE ROOM. BP WAS NOTED TO BE LOW (62/41). MD WOULD LIKE FLUIDS WIDE OPEN TO GRAVITY UNTIL BAG FINISHED. THIS RN RELIEVED LISSA KRAUS FOR BREAK AND CONTINUED ASSESSMENT. ANESTHESIA IN TO SEE PATIENT WITH NO NEW ORDERS. PT DENIES LIGHTHEADEDNESS, NAUSEA, VOMITING. CALL TO PATIENTS DAUGHTER, AND DAUGHTER TO BEDSIDE. TOLERATING PO INTAKE.
== END 2022-04-23 14:26 | disposition home or self-care (01) ==
LOC: ORSCSDS 12:08
PROVIDERS: Internal Medicine Gastroenterology
PROC: 0DJ08ZZ Inspection of Upper Intestinal Tract, Via Natural or Artificial Opening Endoscopic (ICD-10-PCS; principal; 2022-04-23 13:30)
PROC: 0D757ZZ Dilation of Esophagus, Via Natural or Artificial Opening (ICD-10-PCS; principal; 2022-04-23 13:30)
DX: R13.10 Dysphagia, unspecified (principal); K22.2 Esophageal obstruction; K44.9 Diaphragmatic hernia without obstruction or gangrene; I25.10 Atherosclerotic heart disease of native coronary artery without angina pectoris; I10 Essential (primary) hypertension; E03.9 Hypothyroidism, unspecified; E78.5 Hyperlipidemia, unspecified; J44.9 Chronic obstructive pulmonary disease, unspecified; F17.210 Nicotine dependence, cigarettes, uncomplicated; K21.9 Gastro-esophageal reflux disease without esophagitis; Z79.899 Other long term (current) drug therapy
CPT/HCPCS: J7120

== ENCOUNTER → 2022-08-16 | Outpatient (CLI) | payer OTHER ==
[~2022-08-16] MED LIST changes: +ALBU2.5V5; +XARELTO20 MG
[2022-08-16 17:53] LABS: BASOPHILS ABSOLUTE AUTO 0.04 K/mm3 (0.00-0.23); BASOPHILS PERCENT AUTO 1 % (0-2); EOSINOPHILS PERCENT AUTO 2 % (0-6); Hemoglobin 14.7 g/dL (13.5-17.5); IMMATURE GRAN ABSOLUTE AUTO 0.03 K/mm3 (0.00-0.10); IMMATURE GRAN PERCENT AUTO 0 % (0-1); LYMPHOCYTES ABSOLUTE AUTO 1.27 K/mm3 (0.84-5.20); LYMPHOCYTES PERCENT AUTO 19 % (21-46); MONOCYTES ABSOLUTE AUTO 0.62 K/mm3 (0.16-1.47); MONOCYTES PERCENT AUTO 9 % (4-13); Mean Corpuscular HGB 28.7 pg (26.0-34.0); Mean Corpuscular HGB Conc 32.7 g/dL (31.5-36.5); Mean Corpuscular Volume 88 fL (80-100); Mean Platelet Volume 10.8 fL (9.1-12.4); NEUTROPHILS PERCENT AUTO 70 % (41-73); Platelet Count 147 K/mm3 (150-400); RDW Coefficient Variation 14.7 % (11.7-14.2); RDW Standard Deviation 47.7 fL (35.1-46.3); Red Blood Cell Count 5.13 M/mm3 (4.30-5.90); White Blood Cell Count 6.76 K/mm3 (4.00-11.30)
[2022-08-16 18:02] LABS: Albumin, Blood 3.4 g/dL (3.4-5.0); Albumin/Globulin Ratio 0.8 (0.8-1.8); Bilirubin, Total 0.4 mg/dL (0.1-1.0); Bun/Creatinine Ratio 10.8 (12.0-20.0); Calcium, Blood 9.4 mg/dL (8.5-10.1); Creatinine, Blood 1.39 mg/dL (0.60-1.20); Globulin, Blood 4.3 g/dL (2.2-4.0); Potassium, Blood 4.3 mmol/L (3.5-5.5); Total Protein, Blood 7.7 g/dL (6.4-8.2)
== END | disposition home or self-care (01) ==
LOC: LAB SHORT 17:43 → LAB 17:43
PROVIDERS: Chiropractor
DX: R07.9 Chest pain, unspecified (principal)
CPT/HCPCS: 80053; 84484; 85025

== ENCOUNTER → 2022-08-22 | Outpatient (CLI) | payer OTHER | LOC: LAB SHORT 09:45 | DX: K21.9 Gastro-esophageal reflux disease without esophagitis (principal) | CPT/HCPCS: 87338 ==

== ENCOUNTER 2022-11-14 19:20 | Inpatient (IN) | payer OTHER ==
[~2022-11-14] VITALS: Ht 182.9 cm; Wt 94.4 kg
[2022-11-15 00:23] LABS: Anti-Xa UFH, PHA Monitoring <0.10 IU/mL; International Normalized Ratio 1.05
[2022-11-15 00:38] VITALS: BP 163/77
[2022-11-15 04:20] LABS: BASOPHILS ABSOLUTE AUTO 0.04 K/mm3 (0.00-0.23); BASOPHILS PERCENT AUTO 1 % (0-2); EOSINOPHILS PERCENT AUTO 2 % (0-6); Hematocrit 39.8 % (37.0-53.0); Hemoglobin 13.1 g/dL (13.5-17.5); IMMATURE GRAN ABSOLUTE AUTO 0.02 K/mm3 (0.00-0.10); IMMATURE GRAN PERCENT AUTO 0 % (0-1); LYMPHOCYTES PERCENT AUTO 21 % (21-46); MONOCYTES PERCENT AUTO 10 % (4-13); Mean Corpuscular HGB Conc 32.9 g/dL (31.5-36.5); Mean Corpuscular Volume 91 fL (80-100); Mean Platelet Volume 10.6 fL (9.1-12.4); NEUTROPHILS ABSOLUTE AUTO 4.56 K/mm3 (1.96-9.15); NEUTROPHILS PERCENT AUTO 67 % (41-73); Platelet Count 118 K/mm3 (150-400); RDW Coefficient Variation 14.8 % (11.7-14.2); RDW Standard Deviation 50.4 fL (35.1-46.3); Red Blood Cell Count 4.36 M/mm3 (4.30-5.90); White Blood Cell Count 6.82 K/mm3 (4.00-11.30)
[2022-11-15 04:35] VITALS: BP 103/48
[2022-11-15 04:46] LABS: Albumin, Blood 2.9 g/dL (3.4-5.0); Albumin/Globulin Ratio 0.9 (0.8-1.8); Bilirubin, Total 0.8 mg/dL (0.1-1.0); Bun/Creatinine Ratio 10.5 (12.0-20.0); Calcium, Blood 8.2 mg/dL (8.5-10.1); Creatinine, Blood 1.43 mg/dL (0.60-1.20); Globulin, Blood 3.2 g/dL (2.2-4.0); Total Protein, Blood 6.1 g/dL (6.4-8.2)
--- NOTE | 2022-11-15 05:59 | NUR ---
SHIFT SUMMARY ASSUMED CARE OF PT AT 1130. PT IS A/OX4. HEART SOUNDS REGULAR. PACED. LUNG SOUNDS DIMINISHED. PT WAS A 1P SBA TO BATHROOM. PT DENIES DIZZINESS BUT FEELS WEAK. PT HAD NO ACUTE EVENTS AND SLEPT THE REMAINDER OF THE SHIFT.
[2022-11-15 07:53] VITALS: BP 102/55
--- NOTE | 2022-11-15 08:45 | NUR ---
PHONE CALL TO DR VELIZ. PT FAMILY REQUESTING TO MEET WITH PROVIDER WHEN THEY ROUND. PER DR VELIZ, HE PLANS TO ROUND BETWEEN [phone]. PT DAUGHTER NOTIFIED. PT DAUGHTER IS CONCERNED THAT THE PT IS NOT TAKING HIS LEVOTHYROXINE. SHE STATES SHE COUNTED THE MEDICATION AND THERE ARE MORE PILLS THEN THEIR SHOULD BE. THIS RN SPOKE TO PT AND HE STATES HE IS TAKING HIS MEDICATION IT IS PRESCRIBED. ORDERS FROM DR VELIZ TO STOP HEPARIN AND STOP IV FLUIDS AT THIS TIME. PHARMACY NOTIFIED AND PUT HEPARIN ON HOLD.
[2022-11-15 11:30] VITALS: BP 138/55
[2022-11-15 12:27] VITALS: BP 119/65
[2022-11-15 12:30] VITALS: BP 135/78
--- NOTE | 2022-11-15 13:28 | NUR ---
SHIFT SUMMARY/DISCHARGE PT A/O X4. PLEASANT AND COOPERATIVE WITH CARE. PT ASYMPTOMATIC AND DENIES ANY CHEST PAIN/PRESSURE OR SOB. VSS. AMBULATED PT PRIOR TO DISCHARGE AND PT DENIED ANY DIZZINESS OR LIGHT HEADEDNESS. VITALS REMAINED STABLE. PT DAUGHTER AT BEDSIDE AND PLANS TO HELP THE PT WITH MEDICATION MANAGEMENT. THIS RN ENCOURAGED PT DRINK PLENTY OF FLUIDS, MONITOR BP BEFORE TAKING MEDICATIONS. PT AND DAUGHTER VERBALIZED UNDERSTANDING. PT AMBULATED OUT OF ROOM PER HIS REQUEST AND TOLERATED WELL.
== END 2022-11-15 13:20 | disposition home or self-care (01) | DRG 315 ==
LOC: ER 19:20 → PCU 23:27
PROVIDERS: Family Medicine; ADMIT Internal Medicine
DX: I95.89 Other hypotension (principal); N17.9 Acute kidney failure, unspecified; E86.0 Dehydration; E03.9 Hypothyroidism, unspecified; R07.89 Other chest pain; I25.10 Atherosclerotic heart disease of native coronary artery without angina pectoris; J44.9 Chronic obstructive pulmonary disease, unspecified; I12.9 Hypertensive chronic kidney disease with stage 1 through stage 4 chronic kidney disease, or unspecified chronic kidney disease; N18.30 Chronic kidney disease, stage 3 unspecified; E78.00 Pure hypercholesterolemia, unspecified; D69.6 Thrombocytopenia, unspecified; I73.9 Peripheral vascular disease, unspecified; N40.0 Benign prostatic hyperplasia without lower urinary tract symptoms; F17.210 Nicotine dependence, cigarettes, uncomplicated; R77.8 Other specified abnormalities of plasma proteins; H53.8 Other visual disturbances; K22.2 Esophageal obstruction; K44.9 Diaphragmatic hernia without obstruction or gangrene; I87.2 Venous insufficiency (chronic) (peripheral); Z91.018 Allergy to other foods; Z79.51 Long term (current) use of inhaled steroids; Z95.0 Presence of cardiac pacemaker; Z96.653 Presence of artificial knee joint, bilateral; Z86.711 Personal history of pulmonary embolism; Z98.890 Other specified postprocedural states; Z95.1 Presence of aortocoronary bypass graft; Z96.611 Presence of right artificial shoulder joint; Z86.718 Personal history of other venous thrombosis and embolism; Z79.82 Long term (current) use of aspirin; Z79.02 Long term (current) use of antithrombotics/antiplatelets; Z79.811 Long term (current) use of aromatase inhibitors; Z79.899 Other long term (current) drug therapy
CPT/HCPCS: 36415; 71045; 80053; 84484; 85025; 85520; 85610; 85730; 93005; 93010; 94762; 96374; 96376; 99285-25; A9270; J1644; J2405; J7030

== ENCOUNTER → 2022-11-14 | Outpatient (CLI) | payer OTHER ==
[2022-11-14 18:32] LABS: BASOPHILS ABSOLUTE AUTO 0.06 K/mm3 (0.00-0.23); BASOPHILS PERCENT AUTO 1 % (0-2); EOSINOPHILS ABSOLUTE AUTO 0.08 K/mm3 (0.00-0.68); EOSINOPHILS PERCENT AUTO 1 % (0-6); Hematocrit 44.7 % (37.0-53.0); Hemoglobin 15.2 g/dL (13.5-17.5); IMMATURE GRAN ABSOLUTE AUTO 0.04 K/mm3 (0.00-0.10); IMMATURE GRAN PERCENT AUTO 1 % (0-1); LYMPHOCYTES PERCENT AUTO 15 % (21-46); MONOCYTES ABSOLUTE AUTO 0.93 K/mm3 (0.16-1.47); MONOCYTES PERCENT AUTO 12 % (4-13); Mean Corpuscular Volume 91 fL (80-100); NEUTROPHILS ABSOLUTE AUTO 5.62 K/mm3 (1.96-9.15); NEUTROPHILS PERCENT AUTO 71 % (41-73); RDW Coefficient Variation 15.3 % (11.7-14.2); RDW Standard Deviation 51.5 fL (35.1-46.3); White Blood Cell Count 7.93 K/mm3 (4.00-11.30)
[2022-11-14 18:51] LABS: Bun/Creatinine Ratio 7.2 (12.0-20.0); Calcium, Blood 9.4 mg/dL (8.5-10.1); Creatinine, Blood 2.08 mg/dL (0.60-1.20); Potassium, Blood 4.1 mmol/L (3.5-5.5); Thyroid Stimulating Hormone 7.671 uIU/mL (0.360-4.800)
[2022-11-14 19:08] LABS: Mean Platelet Volume 10.5 fL (9.1-12.4); Platelet Count 130 K/mm3 (150-400)
== END | disposition home or self-care (01) ==
LOC: LAB SHORT 18:20 → LAB 18:20
PROVIDERS: Physician Assistant Surgical
DX: R42 Dizziness and giddiness (principal); R53.83 Other fatigue
CPT/HCPCS: 80048; 84443; 84484; 85025

== ENCOUNTER 2022-12-27 10:23 | Day surgery (SDC) | payer OTHER ==
[~2022-12-27] VITALS: Ht 182.9 cm; Wt 95.1 kg
[2022-12-27] MEDS ORDERED: XARELTO10 MG (10:41)
[2022-12-27 12:21] VITALS: BP 95/65
== END 2022-12-27 12:23 | disposition home or self-care (01) ==
LOC: ORSCSDS 10:23
PROVIDERS: Student in an Organized Health Care Education/Training Program
PROC: 0DB78ZX Excision of Stomach, Pylorus, Via Natural or Artificial Opening Endoscopic, Diagnostic (ICD-10-PCS; principal; 2022-12-27 11:30)
PROC: 0DB58ZX Excision of Esophagus, Via Natural or Artificial Opening Endoscopic, Diagnostic (ICD-10-PCS; principal; 2022-12-27 11:30)
PROC: 0DB98ZX Excision of Duodenum, Via Natural or Artificial Opening Endoscopic, Diagnostic (ICD-10-PCS; principal; 2022-12-27 11:30)
PROC: 0D758ZZ Dilation of Esophagus, Via Natural or Artificial Opening Endoscopic (ICD-10-PCS; principal; 2022-12-27 11:30)
DX: K21.9 Gastro-esophageal reflux disease without esophagitis (principal); R13.14 Dysphagia, pharyngoesophageal phase; R10.13 Epigastric pain; K29.80 Duodenitis without bleeding; R11.0 Nausea; I10 Essential (primary) hypertension; I25.2 Old myocardial infarction; I25.10 Atherosclerotic heart disease of native coronary artery without angina pectoris; Z95.0 Presence of cardiac pacemaker; J44.9 Chronic obstructive pulmonary disease, unspecified; F17.210 Nicotine dependence, cigarettes, uncomplicated; E78.00 Pure hypercholesterolemia, unspecified; E78.5 Hyperlipidemia, unspecified; Z86.718 Personal history of other venous thrombosis and embolism; Z79.02 Long term (current) use of antithrombotics/antiplatelets; Z79.01 Long term (current) use of anticoagulants; Z79.899 Other long term (current) drug therapy
CPT/HCPCS: 88305; 88342; J2001; J2704; J7120

== ENCOUNTER → 2023-04-18 | Outpatient (CLI) | payer OTHER ==
[~2023-04-18] MED LIST changes: +XARELTO10 MG
[2023-04-18 14:13] LABS: Source, Urine Clean Catch
[2023-04-18 18:22] LABS: Appearance, Urine Clear (Clear); Bilirubin, Urine Neg (Neg); Blood, Urine Neg (Neg); Color, Urine Yellow (P-Yellow); Glucose Qualitative, Urine Neg (Neg); Ketones, Urine Neg (Neg); Leukocyte Esterase, Urine Neg (Neg); Nitrite, Urine Neg (Neg); Protein, Urine Neg (Neg); Specific Gravity, Urine 1.015 (1.003-1.022); Urobilinogen, Urine NORM (Normal)
== END | disposition home or self-care (01) ==
LOC: LAB 08:00 → LAB SHORT 08:00
PROVIDERS: Nurse Practitioner Family
DX: E78.1 Pure hyperglyceridemia (principal)
CPT/HCPCS: 81003

== ENCOUNTER 2023-04-29 10:44 | Inpatient (IN) | payer OTHER ==
[~2023-04-29] VITALS: Ht 182.9 cm; Wt 94.2 kg
[2023-04-29] VITALS (19 sets, daily range): BP systolic 91–173; BP diastolic 50–127
[~2023-04-29 10:44] MED LIST changes: +FURO20 PO; +POTA10T PO; +TAMS.4ER; +Voltaren100 GM TOP
--- NOTE | 2023-04-29 16:29 | NUR ---
0800 PATIENT RETURNED FROM THE TIE MILL OPERATOR WITH SHEATH TO THE LEFT GROIN WITH INFUSION CATHETER IN PLACE. TEGADERMED IN PLACE. ORDER FAXED TO THE PHARMACY TO START HEPARIN AND TPA GTT RESPECTIVELY TO PORTS LABELED. PATIENT FLAT SUPINE ON GURNEY, ON MONITOR AND NO PAIN NOTED, LEFT GROIN STABLE, NOHEMATOMA, NO BLEEDING NOTED. VVS. CALL LIGHT IN REACH. AWAITING ICU ASSIGNMENT.
--- NOTE | 2023-04-29 16:39 | NUR ---
LAB HERE FOR FIBROGEN BASELINE.
--- NOTE | 2023-04-29 17:01 | NUR ---
1700 HEPARIN AND TPA GTTS STARTED IN CATHLAB RECOVERY BY TWO RN'S
--- NOTE | 2023-04-29 18:47 | NUR ---
LEFT GROIN SITE STABLE, PATOENT TRANSFERED TO ICU 15, SBAR GIVEN AT THE BEDSIDE.
--- NOTE | 2023-04-29 18:59 | NUR ---
ARRIVAL TO ICU PATIENT ARRIVED TO ICU FROM SHIPPING CLERK AT 1836. PATIENT ALERT AND ORIENTED X 4, AFEBRILE. PATIENT HAS NO COMPLAINTS OF PAIN. PATIENT SATTING 90% AND GREATER ON RA. BP AND HR STABLE. SHEATH TO L GROIN; SITE SOFT WITH NO SIGNS OF BLEEDING OR HEMATOMA. TPA INFUSING INTO SHEATH AT 1 MG/ HOUR AND HEPARIN INFUSING INTO SIDE PORT AT 500 UNITS/ HOUR. PATIENT TO GO BACK TO SHIPPING CLERK TOMORROW. PATIENT ORIENTED TO UNIT, ROOM AND CALL LIGHT. BED LOW, CALL LIGHT IN REACH. REPORT WILL BE GIVEN TO ASSUMING CENTRIFUGAL CHILLER TECHNICIAN NURSE SHORTLY.
--- NOTE | 2023-04-29 19:00 | NUR ---
ASSUMED CARE OF PT AT THIS TIME. PT RESTING SUPINE AND FLAT AT THIS TIME. PT JUST RECIEVED TO ICU A FEW MINUTES PRIOR TO ASSUMPTION OF CARE BY THIS RN. AWAITING ORDERS AT THIS TIME. VITALS WNL. TPA AT 1MG/HR= 10 MLS/HR. HEPARIN AT 500 UNITS/HR. FEMORAL SITE IS C/D/I WITH NO BRUISING OR APPARENT HEMATOMAS. SOME DISCOLORATION TO RIGHT FOOT. SEE FULL ASSESSMENT FOR FURTHER INFORMATION.
[2023-04-30] VITALS (68 sets, daily range): BP systolic 67–171; BP diastolic 44–98
[2023-04-30 04:47] LABS: BASOPHILS ABSOLUTE AUTO 0.04 K/mm3 (0.00-0.23); BASOPHILS PERCENT AUTO 1 % (0-2); EOSINOPHILS ABSOLUTE AUTO 0.12 K/mm3 (0.00-0.68); EOSINOPHILS PERCENT AUTO 2 % (0-6); Hemoglobin 13.1 g/dL (13.5-17.5); IMMATURE GRAN ABSOLUTE AUTO 0.01 K/mm3 (0.00-0.10); IMMATURE GRAN PERCENT AUTO 0 % (0-1); LYMPHOCYTES ABSOLUTE AUTO 1.09 K/mm3 (0.84-5.20); LYMPHOCYTES PERCENT AUTO 16 % (21-46); MONOCYTES ABSOLUTE AUTO 0.59 K/mm3 (0.16-1.47); MONOCYTES PERCENT AUTO 9 % (4-13); Mean Corpuscular HGB 31.7 pg (26.0-34.0); Mean Corpuscular HGB Conc 33.6 g/dL (31.5-36.5); Mean Corpuscular Volume 94 fL (80-100); Mean Platelet Volume 10.8 fL (9.1-12.4); NEUTROPHILS ABSOLUTE AUTO 4.91 K/mm3 (1.96-9.15); NEUTROPHILS PERCENT AUTO 73 % (41-73); Platelet Count 101 K/mm3 (150-400); RDW Coefficient Variation 13.2 % (11.7-14.2); RDW Standard Deviation 46.2 fL (35.1-46.3); Red Blood Cell Count 4.13 M/mm3 (4.30-5.90); White Blood Cell Count 6.76 K/mm3 (4.00-11.30)
[2023-04-30 05:20] LABS: Albumin, Blood 2.8 g/dL (3.4-5.0); Anion Gap 6 mmol/L (6-16); Blood Urea Nitrogen 21 mg/dL (8-24); Bun/Creatinine Ratio 16.2 (12.0-20.0); CO2, Blood 24 mmol/L (21-32); Calcium, Blood 8.7 mg/dL (8.5-10.1); Chloride, Blood 112 mmol/L (98-108); Glomerular Filtration Rate 58 (60-); Glucose, Blood 100 mg/dL (70-99); Magnesium, Blood 2.2 mg/dL (1.6-2.4); Phosphorus, Blood 3.4 mg/dL (2.5-4.9); Potassium, Blood 3.9 mmol/L (3.5-5.5); Sodium, Blood 142 mmol/L (136-145)
--- NOTE | 2023-04-30 06:17 | NUR ---
END OF SHIFT SUMMARY PT RESTED THROUGHOUT THE NIGHT WITH MINIMAL MODERATE PAIN RELIEF NEEDED FOR RIGHT FOOT. BLADDER SCAN DONE THIS AM WITH 735 ML RESULT. PT REQUESTING TO HAVE MORE TIME TO URINATE IN URINAL. 375 MLS OUT SINCE BLADDER SCAN AT 0500. NO ACUTE CHANGES OVER NIGHT. VITALS WNL. FEM CATH REMAINS FREE OF ISSUES. WILL CONTINUE TO MONITOR UNTIL REPORT GIVEN TO AM RN.
--- NOTE | 2023-04-30 07:40 | NUR ---
INITIAL ASSESSMENT PATIENT SLEEPING SOUNDLY UPON ENTERING ROOM. PATIENT WOKE EASILY TO VERBAL STIMULI. PATIENT ALERT AND ORIENTED X 4, AFEBRILE. SCHEDULED TYLENOL GIVEN FOR COMPLAINTS OF PAIN IN R FOOT. PATIENT SATTING 90% AND GREATER ON RA. LUNGS WHEEZY THROUGHOUT. PATIENT SWITCHED FROM SR WITH FIRST DEGREE AV BLOCK TO PACED. HR IN THE 60S. SBP IN THE 140S. PATIENT STATES HE HAS N/T IN FEET BUT THAT IT IS NORMAL FOR HIM. CAP REFILL LESS THAN 3 SECONDS. PEDAL PULSES DOPPLER, TIBIAL PULSES ABSENT. GI WNL. PATIENT NPO FOR PENDING HAT SIZER RETURN. PATIENT DENIES NAUSEA. PATIENT HAS URINE RETENTION ISSUES. PATIENT TAKES FLOMAX AT HOME. PATIENT UNABLE TO VOID AT THIS TIME. PATIENT WOULD LIKE A LITTLE MORE TIME BEFORE TRYING AGAIN AND BLADDER SCANNING/ STRAIGHT CATHING. L FEM SHEATH SITE APPEARS WNL; NO BLEEDING, BRUISING OR HEMATOMA NOTED. TPA INFUSING AT 1 MG/ HOUR INTO SHEATH. HEPARIN INFUSING AT 500 UNITS/ HOUR INTO SHEATH SIDE PORT. BED LOW, CALL LIGHT IN REACH. CARE CONTINUES.
--- NOTE | 2023-04-30 11:40 | NUR ---
PATIENT AFEBRILE. NO COMPLAINTS OF PAIN. HR IN THE 60S. SBP IN THE 1-TEENS. FEM SITE REMAINS UNCHANGED.
--- NOTE | 2023-04-30 11:45 | NUR ---
PATIENT TAKEN TO THREAD LASTER.
--- NOTE | 2023-04-30 13:11 | NUR ---
PATIENT BACK FROM TOWN PLANNER. PATIENT DROWSY BUT ABLE TO ANSWER NURSE QUESTIONS. VITALS STABLE. L FEM SITE WNL. TEGADERM CHG IN PLACE. NO BLEEDING OR HEMATOMA NOTED. SMALL BRUISE NOTED UNDER TEGADERM DRESSING. SITE SOFT TO PALPATION. PEDAL PULSES REMAIN DOPPLER. TIBIAL PULSES REMAIN ABSENT. NO CHANGES TO COLOR, SENSATION. CALL LIGHT IN REACH. CARE CONTINUES.
--- NOTE | 2023-04-30 16:30 | NUR ---
PATIENT AFEBRILE. HR IN THE 80S. SBP IN THE 130S. PATIENT HAVING DIFFICULTY VOIDING. BLADDER SCAN SHOWED 408 MLS OF URINE IN BLADDER. PATIENT STRAIGHT CATHED AND 650 MLS OF URINE DRAINED. PULSES REMAIN UNCHANGED IN BILAT FEET. L FEM SITE REMAINS UNCHANGED FROM PREVIOUS CHECK; NO HEMATOMA NOTED; SITE SOFT TO PALPATION. SMALL BRUISE NOTED UNDER CHG DRESSING. SMALL OOZE NOTED UNDER DRESSING BUT CONTAINED UNDER CHG AND HAS NOT PROGRESSED SINCE IT OCCURRED AFTER HEPARIN DRIP STARTED. NO OTHER ACUTE CHANGES TO NOTE ON AT THIS TIME. CARE CONTINUES.
--- NOTE | 2023-04-30 18:46 | NUR ---
SHIFT SUMMARY PATIENT REMAINED ORIENTED THIS SHIFT AND NAPPED ON AND OFF. PATIENT REMAINED AFEBRILE. PATIENT GIVEN SCHEDULED TYLENOL AND PATIENT REPORTED IT HELPED WITH HIS R FOOT AND L GROIN PAIN. PATIENT REMAINED SATTING 90% AND GREATER ON RA. PATIENT LUNGS DID SOUND SLIGHTLY WHEEZY AT TIMES. PATIENT REMAINED EITHER SR WITH FIRST DEGREE BLOCK OR PACED. HR 60S TO 80S. PEDAL PULSES REMAIN DOPPLER. TIBIAL PULSES REMAIN ABSENT. PATIENT ATE SOME DINNER. PATIENT TO BE NPO AT MIDNIGHT FOR POSSIBLE TISSUE RECOVERY TECHNICIAN RETURN TOMORROW. NO BM THIS SHIFT. PATIENT HAS URINARY RETENTION. PATIENT VOIDED SOME DURING SHIFT BUT WAS BLADDER SCANNED LATER IN SHIFT AND SHOWED 408 MLS OF URINE IN BLADDER. PATIENT STRAIGHT CATHED AND 650 MLS DRAINED. 1000 MLS OF URINE TOTAL OUT THIS SHIFT. PATIENT CAME BACK FROM TISSUE RECOVERY TECHNICIAN WITH NO INTERVENTION AND MYNX CLOSURE DEVICE TO L GROIN. SITE SOFT; NO HEMATOMA NOTED. SMALL BRUISE AND SMALL OOZE UNDER CHG DRESSING; NEITHER HAVE PROGRESSED. BP NOW LOW AFTER SCHEDULED ISOSORBIDE. [address] CC [address] BOLUS GIVEN. DR. JONES CALLED AND THEN DR. DICKSON UPDATED. PATIENT DENIES BACK PAIN, HR IN 70S AND PATIENT REMAINS EASY TO WAKE AND ORIENTED TO ALL QUESTIONS. HEPARIN INFUSING AT 12 UNITS/ KG/ HOUR. PATIENT HAD COMPLETE BEDBATH. PATIENT STATED HE UPDATED HIS DAUGHTER. BED LOW, CALL LIGHT IN REACH.
--- NOTE | 2023-04-30 19:18 | NUR ---
UPDATED DR. JONES ON PATIENT'S LOW BP. ORDERS RECEIVED. REPORT GIVEN TO ASSUMING LITHOGRAPHIC ARTIST NURSE.
[2023-04-30 20:13] LABS: Anti-Xa UFH, PHA Monitoring 0.17 IU/mL
--- NOTE | 2023-04-30 20:46 | NUR ---
ASSUMED CARE PT IS A&O X4; PLEASANT AND COOPERATIVE W/ CARE. SPO2 >92% ON RA; MAP HIGH 50'S LOW 60'S. DR JONES CALLED BY PREVIOUS RN W/ ORDERS FOR MIDODRINE AND 500ML NS 100ML'S AN HOUR. AT TIME OF THIS NOTE PT MAP'S HAVE NOT CHANGED, DR JONES CALLED AGAIN W/ ORDERS FOR STAT CBC AND TO CALLED HOSPITALIST IF PRESSURES DO NOT COME UP. PT DENIES CP, NAUSEA, DIZZINESS, OR LIGHTHEADEDNESS. 2/10 IN RIGHT GROIN. LEFT FEMORAL ACCESS SITE FREE OF HEMATOMA, SMALL BRUISE AND OOZING NOTED; NO BRUISE OBSERVED ON FLANK. PEDAL PULSE'S PALPATED IN LEFT LEG, DOPPLER FOR RIGHT, ABSENT TIBIAL PULSE ON RIGHT LEG. RIGHT LEG IS WARM AND RED.
[2023-04-30 20:53] LABS: BASOPHILS ABSOLUTE AUTO 0.04 K/mm3 (0.00-0.23); BASOPHILS PERCENT AUTO 1 % (0-2); EOSINOPHILS ABSOLUTE AUTO 0.11 K/mm3 (0.00-0.68); EOSINOPHILS PERCENT AUTO 1 % (0-6); Hematocrit 37.1 % (37.0-53.0); Hemoglobin 12.4 g/dL (13.5-17.5); IMMATURE GRAN ABSOLUTE AUTO 0.04 K/mm3 (0.00-0.10); IMMATURE GRAN PERCENT AUTO 1 % (0-1); LYMPHOCYTES ABSOLUTE AUTO 0.96 K/mm3 (0.84-5.20); LYMPHOCYTES PERCENT AUTO 11 % (21-46); MONOCYTES PERCENT AUTO 10 % (4-13); Mean Corpuscular HGB 31.6 pg (26.0-34.0); Mean Corpuscular HGB Conc 33.4 g/dL (31.5-36.5); Mean Corpuscular Volume 95 fL (80-100); Mean Platelet Volume 10.8 fL (9.1-12.4); NEUTROPHILS ABSOLUTE AUTO 6.78 K/mm3 (1.96-9.15); NEUTROPHILS PERCENT AUTO 77 % (41-73); Platelet Count 102 K/mm3 (150-400); RDW Coefficient Variation 13.5 % (11.7-14.2); RDW Standard Deviation 46.9 fL (35.1-46.3); Red Blood Cell Count 3.92 M/mm3 (4.30-5.90); White Blood Cell Count 8.83 K/mm3 (4.00-11.30)
[2023-05-01] VITALS (28 sets, daily range): BP systolic 89–160; BP diastolic 45–115
--- NOTE | 2023-05-01 00:10 | NUR ---
UPDATE LEFT FEMORAL SITE DRESSING CHANGED; SMALL OOZING AND BRUISE STILL NOTED; NO HEMATOMA OR INCREASE IN SIZE OF BRUISING NOTED. PT CONTINUES TO DENY FLANK PAIN. PEDAL PULSE AUSCULTATED W/ DOPPLER ON RIGHT FOOT; TIBIAL STILL ABSENT.
[2023-05-01 03:12] LABS: BASOPHILS ABSOLUTE AUTO 0.04 K/mm3 (0.00-0.23); BASOPHILS PERCENT AUTO 1 % (0-2); EOSINOPHILS ABSOLUTE AUTO 0.12 K/mm3 (0.00-0.68); EOSINOPHILS PERCENT AUTO 2 % (0-6); Hematocrit 35.5 % (37.0-53.0); IMMATURE GRAN ABSOLUTE AUTO 0.02 K/mm3 (0.00-0.10); IMMATURE GRAN PERCENT AUTO 0 % (0-1); LYMPHOCYTES ABSOLUTE AUTO 1.07 K/mm3 (0.84-5.20); LYMPHOCYTES PERCENT AUTO 13 % (21-46); MONOCYTES ABSOLUTE AUTO 0.99 K/mm3 (0.16-1.47); MONOCYTES PERCENT AUTO 12 % (4-13); Mean Corpuscular HGB 31.7 pg (26.0-34.0); Mean Corpuscular HGB Conc 33.8 g/dL (31.5-36.5); Mean Corpuscular Volume 94 fL (80-100); Mean Platelet Volume 10.8 fL (9.1-12.4); NEUTROPHILS ABSOLUTE AUTO 5.95 K/mm3 (1.96-9.15); NEUTROPHILS PERCENT AUTO 73 % (41-73); Platelet Count 97 K/mm3 (150-400); RDW Coefficient Variation 13.4 % (11.7-14.2); RDW Standard Deviation 46.4 fL (35.1-46.3); Red Blood Cell Count 3.78 M/mm3 (4.30-5.90); White Blood Cell Count 8.19 K/mm3 (4.00-11.30)
[2023-05-01 03:30] LABS: Albumin, Blood 2.5 g/dL (3.4-5.0); Anion Gap 6 mmol/L (6-16); Blood Urea Nitrogen 20 mg/dL (8-24); Bun/Creatinine Ratio 14.7 (12.0-20.0); CO2, Blood 23 mmol/L (21-32); Calcium, Blood 7.8 mg/dL (8.5-10.1); Chloride, Blood 112 mmol/L (98-108); Creatinine, Blood 1.36 mg/dL (0.60-1.20); Glomerular Filtration Rate 55 (60-); Glucose, Blood 105 mg/dL (70-99); Phosphorus, Blood 2.6 mg/dL (2.5-4.9); Sodium, Blood 141 mmol/L (136-145)
--- NOTE | 2023-05-01 03:39 | NUR ---
UPDATE WHILE PERFORMING 4AM ASSESSMENT PT COMPLAINED OF TENDERNESS AT LEFT FEMORAL SITE. NO CHANGE IN BRUISING/OOZING, BUT SMALL HEMATOMA OR FIRMNESS NOTED THAT WAS NOT PRESENT AT START OF SHIFT; NOT ACTIVELY GROWING. REASSESSED 5 MINUTES AFTER INITIAL ASSESSMENT AND SIZE OF FIRMNESS HAS NOT CHANGED, WILL CONTINUE TO REASSESS. RIGHT LEG ASSESSMENT HAS NOT CHANGED.
--- NOTE | 2023-05-01 03:58 | NUR ---
UPDATE FIRMNESS HAS NOT CHANGED IN SIZE, BRUISING REMAINS THE SAME INITIAL ASSESSMENT (@ 1900), AND TENDERNESS/PAIN HAS NOT INCREASED PER PT.
--- NOTE | 2023-05-01 05:53 | NUR ---
SHIFT SUMMARY A&O X4; SPO2 >92% ON RA; MAP >65 W/ NO NEED FOR PRESSORS (MAP STABLE SINCE LAST NOTE ABOUT PRESSURES); RATE IN THE 80'S. RIGHT LEG/FOOT REMAINS UNCHANGED SINCE LAST ASSESSMENT/NOTE; LEFT FEMORAL SITE REMAINS UNCHANGED. PT WAS ABLE TO VOID ONCE LAST NIGHT, HAS NOT SINCE. BLADDER SCAN THIS AM SHOWED 277 IN BLADDER. NO OTHER ACUTE EVENTS THIS EVENING.
--- NOTE | 2023-05-01 07:23 | NUR ---
BEDSIDE REPORT AWAKENS TYSON HE JOINS IN, LEFT GROIN SITE WITH BRUISING AND SLIGHT FIRMNESS JUST SUPERIOR TO TEGADERM. HEPARIN GTT @ 13U/HR, NS STARTED @ 50ML/HR PER ORDER. LEFT FOOT WITH GOOD PULSES, RIGHT FOOT PULSE PALPABLE, WARM TO THE TOUCH, PT STATES THAT HIS "GREAT TOE" FEELS BETTER. PT TRIES TO VOID USING URINAL, UNABLE.
--- NOTE | 2023-05-01 10:49 | NUR ---
TYSON CONTINUES RESTING, HE AWAKENS EASILY AND CONVERSES. HE IS ANXIOUS ABOUT WHEN PROCEDURE WILL HAPPEN, CALLS HAVE BEEN MADE TO RISK INVESTIGATOR WITH NO ESTIMATE PROVIDED. PT UPDATED.
--- NOTE | 2023-05-01 10:59 | NUR ---
HEARD BACK FROM BRAIDER OPERATOR, NOT EXPECTED TO SEE DEBORA THIS AFTERNOON, PERMISSION TO GIVE AM MEDS WITH SOME WATER THEN REMAIN NPO. COMMUNICATED WITH PT.
--- NOTE | 2023-05-01 16:53 | NUR ---
1645 PT RETURNS FROM COLOR STRAINING BAG WASHER, LEFT GROIN WITH ANGIOSEAL, CLEAR DRESSING IN PLACE, OLD BRUISING NOTED, SITE SOFT, NON TENDER, PULSES PALPABLE IN BOTH FEET, BOTH FEET WARM AND DRY. PT'S VSS, SNORING BUT AWAKENS TO VOICE. DENIES ANY DISCOMFORT AT THIS TIME.
--- NOTE | 2023-05-01 22:38 | NUR ---
REPORT GIVEN TO VERONICA ALCARAZ IN PCU. PT NOW BEING TRANSPORTED TO PCU 7.
[2023-05-02 03:49] VITALS: BP 140/61
--- NOTE | 2023-05-02 04:56 | NUR ---
SHIFT SUMMARY ASSUMED CARE OF PT AT 2245. PT IS A/OX4. ANGIO SITE HAS BRUSING AND FIRM TO TOUCH BUT NO PAIN FOR INFLAMATION. PT WAS ABLE TO TOLERATE STANDING TO PEE BUT DIDNT FEEL READY TO WALK TO BATHROOM. PT STATES R LEG IS ACTUALLY FEELING BETTER AND HE IS STARTING TO GET SOME FEELING BACK IN IT. PULSES VERY WEAK. PT WAS ABLE TO SLEEP MOST OF THE NOC AND IS ATICIPATING GOING HOME TO TAKE CAARE OF HIS DOGS.
[2023-05-02 06:06] LABS: Albumin, Blood 2.6 g/dL (3.4-5.0); Anion Gap 5 mmol/L (6-16); Blood Urea Nitrogen 19 mg/dL (8-24); Bun/Creatinine Ratio 14.8 (12.0-20.0); CO2, Blood 23 mmol/L (21-32); Calcium, Blood 8.5 mg/dL (8.5-10.1); Chloride, Blood 112 mmol/L (98-108); Creatinine, Blood 1.28 mg/dL (0.60-1.20); Glomerular Filtration Rate 59 (60-); Glucose, Blood 97 mg/dL (70-99); Phosphorus, Blood 2.6 mg/dL (2.5-4.9); Potassium, Blood 4.2 mmol/L (3.5-5.5); Sodium, Blood 140 mmol/L (136-145)
[2023-05-02 07:26] VITALS: BP 154/66
--- NOTE | 2023-05-02 10:20 | NUR ---
DISCHARGE SUMMARY ALERT, ORIENTED, PLEASANT, COOPERATIVE. SBA WITH FWW TO BATHROOM. V-PACED ON TELE, ROOM AIR. ELEVATED SBP. TOELRATING DIET AND PO LIQUIDS. VOIDING WELL. REPOERTS MILD PAIN 2/10 TO RLE. BLE MILDLY RED, EDEMETOUS, NUMBNESS AND TINGLING AT BASELINE. PPP, BUT WEAK AND THREADY. ABLE TO WIGGLE ANKLES AND TOES. LEFT FEM SITE WNL WITH CHG TEGADERM PATENT. DISCHARGE ORDER OBTAINED. DISCHARGE EDUCATION GIVE ON FEM SITE CARE, NEW RX, AND FOLLOW UP WITH PCP AND DR DENG. IV'S DC'D WNL. PATIENT LEFT UNIT VIA WHEELCHAIR WITH DAUGHTER FOR HOME AT 1005.
== END 2023-05-02 10:19 | disposition home or self-care (01) | DRG 253 ==
LOC: MHTC 10:44 → ICUE 20:17 → PCU 05-01 22:45
PROVIDERS: Radiology Diagnostic Radiology; ADMIT Family Medicine
PROC: 047K3ZZ Dilation of Right Femoral Artery, Percutaneous Approach (ICD-10-PCS; principal; 2023-04-29)
PROC: 3E05317 Introduction of Other Thrombolytic into Peripheral Artery, Percutaneous Approach (ICD-10-PCS; 2023-04-29)
PROC: B41F1ZZ Fluoroscopy of Right Lower Extremity Arteries using Low Osmolar Contrast (ICD-10-PCS; 2023-04-30)
PROC: 3E033XZ Introduction of Vasopressor into Peripheral Vein, Percutaneous Approach (ICD-10-PCS; 2023-04-30)
DX: T82.858A Stenosis of other vascular prosthetic devices, implants and grafts, initial encounter (principal); I74.3 Embolism and thrombosis of arteries of the lower extremities; I25.10 Atherosclerotic heart disease of native coronary artery without angina pectoris; I73.9 Peripheral vascular disease, unspecified; Y83.8 Other surgical procedures as the cause of abnormal reaction of the patient, or of later complication, without mention of misadventure at the time of the procedure; J44.9 Chronic obstructive pulmonary disease, unspecified; F32.A Depression, unspecified; K21.9 Gastro-esophageal reflux disease without esophagitis; E78.00 Pure hypercholesterolemia, unspecified; T82.868A Thrombosis due to vascular prosthetic devices, implants and grafts, initial encounter; N40.0 Benign prostatic hyperplasia without lower urinary tract symptoms; D69.6 Thrombocytopenia, unspecified; E03.9 Hypothyroidism, unspecified; I25.2 Old myocardial infarction; Z95.0 Presence of cardiac pacemaker; Z86.718 Personal history of other venous thrombosis and embolism; Z95.1 Presence of aortocoronary bypass graft; Z86.711 Personal history of pulmonary embolism; F17.210 Nicotine dependence, cigarettes, uncomplicated; Z98.890 Other specified postprocedural states; Z98.1 Arthrodesis status; Z91.018 Allergy to other foods; Z79.82 Long term (current) use of aspirin; Z79.899 Other long term (current) drug therapy; Z79.890 Hormone replacement therapy; Z79.01 Long term (current) use of anticoagulants
CPT/HCPCS: 36415; 51701; 76937; 80069; 83735; 85025; 85384; 85520; 85730; 94762; 96374; 96376; 99152; 99153; A9270; C1725; C1757; C1760; C1769; C1887; C1894; G0378; G0379; J1644; J2250; J2997; J3010; J7030; J7040; J7050; Q9967

== ENCOUNTER 2023-06-15 01:05 | Inpatient (IN) | payer OTHER ==
[~2023-06-15] VITALS: Ht 182.9 cm; Wt 95.8 kg
[2023-06-15] MEDS ORDERED: Lisinopril2.5 MG PO (01:23)
[2023-06-15 01:41] LABS: BASOPHILS ABSOLUTE AUTO 0.06 K/mm3 (0.00-0.23); BASOPHILS PERCENT AUTO 1 % (0-2); EOSINOPHILS ABSOLUTE AUTO 0.14 K/mm3 (0.00-0.68); EOSINOPHILS PERCENT AUTO 2 % (0-6); Hematocrit 41.3 % (37.0-53.0); Hemoglobin 13.3 g/dL (13.5-17.5); IMMATURE GRAN ABSOLUTE AUTO 0.07 K/mm3 (0.00-0.10); IMMATURE GRAN PERCENT AUTO 1 % (0-1); LYMPHOCYTES ABSOLUTE AUTO 1.45 K/mm3 (0.84-5.20); LYMPHOCYTES PERCENT AUTO 20 % (21-46); MONOCYTES ABSOLUTE AUTO 0.68 K/mm3 (0.16-1.47); MONOCYTES PERCENT AUTO 9 % (4-13); Mean Corpuscular HGB Conc 32.2 g/dL (31.5-36.5); Mean Corpuscular Volume 96 fL (80-100); Mean Platelet Volume 11.2 fL (9.1-12.4); NEUTROPHILS ABSOLUTE AUTO 5.05 K/mm3 (1.96-9.15); NEUTROPHILS PERCENT AUTO 68 % (41-73); Platelet Count 144 K/mm3 (150-400); RDW Coefficient Variation 13.4 % (11.7-14.2); RDW Standard Deviation 47.5 fL (35.1-46.3); Red Blood Cell Count 4.29 M/mm3 (4.30-5.90); White Blood Cell Count 7.45 K/mm3 (4.00-11.30)
[2023-06-15 01:43] LABS: Albumin, Blood 3.1 g/dL (3.4-5.0); Albumin/Globulin Ratio 0.8 (0.8-1.8); Bilirubin, Total 0.3 mg/dL (0.1-1.0); Bun/Creatinine Ratio 17.6 (12.0-20.0); Calcium, Blood 8.4 mg/dL (8.5-10.1); Creatinine, Blood 1.25 mg/dL (0.60-1.20); Globulin, Blood 3.8 g/dL (2.2-4.0); Potassium, Blood 4.7 mmol/L (3.5-5.5); Total Protein, Blood 6.9 g/dL (6.4-8.2)
[2023-06-15 03:24] LABS: Influenza A, PCR NEGATIVE (NEGATIVE); Influenza B, PCR NEGATIVE (NEGATIVE); Resp Syncytial Virus, PCR NEGATIVE (NEGATIVE); SARS-Cov-2 (COVID-19) PCR, MMC NEGATIVE (NEGATIVE)
[2023-06-15 06:23] LABS: BASOPHILS ABSOLUTE AUTO 0.03 K/mm3 (0.00-0.23); BASOPHILS PERCENT AUTO 0 % (0-2); EOSINOPHILS ABSOLUTE AUTO 0.05 K/mm3 (0.00-0.68); EOSINOPHILS PERCENT AUTO 1 % (0-6); Hemoglobin 12.6 g/dL (13.5-17.5); IMMATURE GRAN ABSOLUTE AUTO 0.03 K/mm3 (0.00-0.10); IMMATURE GRAN PERCENT AUTO 0 % (0-1); LYMPHOCYTES ABSOLUTE AUTO 0.69 K/mm3 (0.84-5.20); LYMPHOCYTES PERCENT AUTO 8 % (21-46); MONOCYTES ABSOLUTE AUTO 0.29 K/mm3 (0.16-1.47); MONOCYTES PERCENT AUTO 4 % (4-13); Mean Corpuscular HGB 30.5 pg (26.0-34.0); Mean Corpuscular HGB Conc 32.3 g/dL (31.5-36.5); Mean Corpuscular Volume 94 fL (80-100); Mean Platelet Volume 11.5 fL (9.1-12.4); NEUTROPHILS ABSOLUTE AUTO 7.18 K/mm3 (1.96-9.15); NEUTROPHILS PERCENT AUTO 87 % (41-73); Platelet Count 117 K/mm3 (150-400); RDW Coefficient Variation 13.4 % (11.7-14.2); RDW Standard Deviation 46.2 fL (35.1-46.3); Red Blood Cell Count 4.13 M/mm3 (4.30-5.90); White Blood Cell Count 8.27 K/mm3 (4.00-11.30)
[2023-06-15 06:51] LABS: Albumin/Globulin Ratio 0.8 (0.8-1.8); Bilirubin, Total 0.3 mg/dL (0.1-1.0); Bun/Creatinine Ratio 18.1 (12.0-20.0); Calcium, Blood 8.3 mg/dL (8.5-10.1); Creatinine, Blood 1.16 mg/dL (0.60-1.20); Globulin, Blood 3.8 g/dL (2.2-4.0); Magnesium, Blood 2.1 mg/dL (1.6-2.4); Potassium, Blood 3.5 mmol/L (3.5-5.5); Thyroid Stimulating Hormone 1.64 uIU/mL (0.360-4.800); Total Protein, Blood 6.8 g/dL (6.4-8.2)
[2023-06-15 09:41] VITALS: BP 163/89
[2023-06-15] MEDS ORDERED: ALBU90OI INH (13:57)
[2023-06-15 15:04] VITALS: BP 170/82
--- NOTE | 2023-06-15 19:40 | NUR ---
LATE ENTRY/ER ADMIT 0915: RECEIVED REPORT FROM SOLAR ENERGY SYSTEM INSTALLER HELPER. 0940: RECEIVED PT FROM ER VIA GURNEY TRANSPORT, PLACED SELF IN BED, MADE COMFORTABLE, ORIENTED TO ROOM & UNIT ROUTINE.
--- NOTE | 2023-06-15 19:42 | NUR ---
SHIFT SUMMARY PT'S TROPONINS CONTINUE TO ELEVATE. MOST RECENT TROP 441. MD MADE AWARE, NO NEW ORDERS RECEIVED. EKG DONE & ON CHART. GI COCKTAIL GIVEN FOR PT C/O INDIGESTION PER MD ORDER WITH GOOD EFFECT STATED BY PT. TELE ON & SHOWING SR WITH HR 70'S. VSS. PT IS A&O X 4, INDEPENDENT IN THE ROOM THOUGH KNOWS TO ASK FOR HELP IF NEEDED WHEN GETTING UP OOB.
[2023-06-15 20:26] VITALS: BP 152/64
[2023-06-16 01:14] LABS: BASOPHILS ABSOLUTE AUTO 0.04 K/mm3 (0.00-0.23); BASOPHILS PERCENT AUTO 0 % (0-2); EOSINOPHILS ABSOLUTE AUTO 0.01 K/mm3 (0.00-0.68); EOSINOPHILS PERCENT AUTO 0 % (0-6); Hematocrit 36.8 % (37.0-53.0); Hemoglobin 12.2 g/dL (13.5-17.5); IMMATURE GRAN ABSOLUTE AUTO 0.06 K/mm3 (0.00-0.10); IMMATURE GRAN PERCENT AUTO 1 % (0-1); LYMPHOCYTES ABSOLUTE AUTO 1.27 K/mm3 (0.84-5.20); LYMPHOCYTES PERCENT AUTO 11 % (21-46); MONOCYTES ABSOLUTE AUTO 0.89 K/mm3 (0.16-1.47); MONOCYTES PERCENT AUTO 8 % (4-13); Mean Corpuscular HGB 30.8 pg (26.0-34.0); Mean Corpuscular HGB Conc 33.2 g/dL (31.5-36.5); Mean Corpuscular Volume 93 fL (80-100); Mean Platelet Volume 10.7 fL (9.1-12.4); NEUTROPHILS ABSOLUTE AUTO 9.14 K/mm3 (1.96-9.15); NEUTROPHILS PERCENT AUTO 80 % (41-73); Platelet Count 116 K/mm3 (150-400); RDW Coefficient Variation 13.3 % (11.7-14.2); RDW Standard Deviation 45.3 fL (35.1-46.3); Red Blood Cell Count 3.96 M/mm3 (4.30-5.90); White Blood Cell Count 11.41 K/mm3 (4.00-11.30)
[2023-06-16 01:31] LABS: International Normalized Ratio 1.12; Prothrombin Time Results 11.7 Sec (9.7-11.5)
[2023-06-16 01:38] LABS: Albumin, Blood 2.7 g/dL (3.4-5.0); Anion Gap 5 mmol/L (6-16); Blood Urea Nitrogen 21 mg/dL (8-24); Bun/Creatinine Ratio 19.6 (12.0-20.0); CO2, Blood 24 mmol/L (21-32); Calcium, Blood 8.5 mg/dL (8.5-10.1); Chloride, Blood 114 mmol/L (98-108); Creatinine, Blood 1.07 mg/dL (0.60-1.20); Glomerular Filtration Rate 73 (60-); Glucose, Blood 109 mg/dL (70-99); Magnesium, Blood 2.3 mg/dL (1.6-2.4); Phosphorus, Blood 2.5 mg/dL (2.5-4.9); Potassium, Blood 4.5 mmol/L (3.5-5.5); Sodium, Blood 143 mmol/L (136-145)
[2023-06-16 04:43] VITALS: BP 141/64
--- NOTE | 2023-06-16 05:23 | NUR ---
NOTIFIED BY DONOR SUPPORT TECHNICIAN THAT PT AV PACER MISFIRED ON 2 VENTRICLE BEATS AND TWO CONCURRENT PVC'S OCCURRED AND PT PACED RATE OF 60 DECREASED TO 48 FOR A COUPLE SECONDS. HOSPITALIST NOTIFIED AND INSTRUCTIONS GIVENT TO HOLD OFF ON CARDIOLOGY CONSULT FOR NOW, BUT IF SAME OR SIMILAR EVENT OCCURS AGAIN TO ORDER CARDIOLOGY CONSULT.
[2023-06-16 07:26] VITALS: BP 128/71
--- NOTE | 2023-06-16 07:35 | NUR ---
SHIFT SUMMARY NOC PT A/O X 4. PLEASANT AND COOPERATIVE WITH CARE. PT HAD NO C/O OF CP DURING SHIFT. PT ON TELE RUNNING AV PACED @ 60 BPM, BUT @ 0530 TELE CALLED SAYING PM MISFIRED WITH CONCURRENT PVC'S AND HR DROPPED TO 60 BPM, HOSPITALIST NOTIFIED AND INSTRUCTIONS GIVEN TO ORDER CARDIOLOGY CONSULT IF EVENT OCCURS AGAIN. PT HAS HEPARIN DRIP ORDERED TO START @ 0900 TODAY. PT ALSO HAS ECHO SCHEDULED. PT ON O2 2L/NC DUE TO SOB, BUT RA BASELINE. PT IS CURRENTLY RESTING WITH BED IN LOWEST POSITION, AND CALL LIGHT WITHIN REACH.
[2023-06-16 14:51] VITALS: BP 143/78
--- NOTE | 2023-06-16 16:58 | NUR ---
SHIFT SUMMARY A&OX4, COOPERATIVE WITH CARE. NO ACUTE EVENTS THIS SHIFT. TELEMETRY SHOWS AV PACED IN THE 60'S WITH NO EVENTS AT THIS POINT BESIDES A POSSIBLE MISFIRE AROUND 0900 THIS MORNING PER MANAGER OF PURCHASING. O2 SATS >95% ON RA. DENIES HEADACHE, DIZZINESS OR SOB. NO CP/PRESSURE DURING THIS SHIFT. ECHO DONE THIS MORNING BUT NO ARCHITECTURAL COATING FINISHER HERE TO INTERPRET TODAY. PT HAD SOME PAIN DURING VANCO INFUSION, BUT NO COMPLAINTS AFTER. HEPARIN DRIP AT 15GTT STARTED THIS MORNING, THEN PT RECEIVED A BOLUS OF 2400 AND INCREASED DRIP TO 17GTT AT 1700. PLAN TO MONITOR AND POSSIBLE DC TOMORROW PER DR. ZURITA.
[2023-06-16] MEDS ORDERED: ISOSORBIDE MONO30 MG PO (17:09)
[2023-06-16] MEDS ORDERED: KLOR-CON 1010 ME9 PO (17:09)
[2023-06-16 19:49] VITALS: BP 165/70
[2023-06-17 02:12] VITALS: BP 149/57
[2023-06-17 04:53] LABS: BASOPHILS ABSOLUTE AUTO 0.03 K/mm3 (0.00-0.23); BASOPHILS PERCENT AUTO 0 % (0-2); EOSINOPHILS ABSOLUTE AUTO 0.03 K/mm3 (0.00-0.68); EOSINOPHILS PERCENT AUTO 0 % (0-6); Hematocrit 37.1 % (37.0-53.0); Hemoglobin 12.1 g/dL (13.5-17.5); IMMATURE GRAN ABSOLUTE AUTO 0.04 K/mm3 (0.00-0.10); IMMATURE GRAN PERCENT AUTO 0 % (0-1); LYMPHOCYTES ABSOLUTE AUTO 1.94 K/mm3 (0.84-5.20); LYMPHOCYTES PERCENT AUTO 21 % (21-46); MONOCYTES ABSOLUTE AUTO 0.79 K/mm3 (0.16-1.47); MONOCYTES PERCENT AUTO 8 % (4-13); Mean Corpuscular HGB 30.6 pg (26.0-34.0); Mean Corpuscular HGB Conc 32.6 g/dL (31.5-36.5); Mean Corpuscular Volume 94 fL (80-100); Mean Platelet Volume 10.9 fL (9.1-12.4); NEUTROPHILS PERCENT AUTO 70 % (41-73); Platelet Count 114 K/mm3 (150-400); RDW Coefficient Variation 13.4 % (11.7-14.2); RDW Standard Deviation 45.8 fL (35.1-46.3); Red Blood Cell Count 3.95 M/mm3 (4.30-5.90); White Blood Cell Count 9.43 K/mm3 (4.00-11.30)
[2023-06-17 05:13] LABS: Albumin, Blood 2.8 g/dL (3.4-5.0); Albumin/Globulin Ratio 0.8 (0.8-1.8); Bilirubin, Total 0.5 mg/dL (0.1-1.0); Calcium, Blood 8.6 mg/dL (8.5-10.1); Creatinine, Blood 1.21 mg/dL (0.60-1.20); Globulin, Blood 3.3 g/dL (2.2-4.0); Potassium, Blood 3.8 mmol/L (3.5-5.5); Total Protein, Blood 6.1 g/dL (6.4-8.2)
--- NOTE | 2023-06-17 06:48 | NUR ---
SHIFT SUMMARY: NO NEW ACUTE CHANGES IN PATIENT CONDITION THIS SHIFT. PATIENT A/OX4, CALM, PLEASANT AND COOPERATIVE c CARE. PATIENT USES CALL LIGHT APPROPRIATELY AND ABLE TO MAKE NEEDS KNOWN. PATIENT DENIES CP/PRESSURE, SOB, N/V AND DIZZINESS. PATIENT STILL ON TELE, AV-PACED IN THE 60'S BPM. PIV TO L HAND INFUSING HEPARIN AT 16 U/KG/HR, RATE CONTROLLED BY PHARMACIST. PATIENT RECEIVED SCHEDULED MEDS PER EMAR. PATIENT SLEPT WELL THIS SHIFT, CONTINENCE OF BLADDER AND USES URINAL IN BED. PATIENT DENIES ANY NEW CONCERN THIS SHIFT. VITAL SIGNS REVIEWED. CALL LIGHT IN REACH.
[2023-06-17 07:31] VITALS: BP 146/67
[2023-06-17] MEDS ORDERED: AMOCLA875 PO (10:48)
[2023-06-17] MEDS ORDERED: PRED20 PO (10:49)
--- NOTE | 2023-06-17 12:10 | NUR ---
DISCHARGE A&OX4, COOPERATIVE WITH CARE. NO ACUTE EVENTS THIS SHIFT. DENIED ANY CP/PRESSURE, HEADHACHE, DIZZINESS, OR SOB THIS SHIFT. DISCHARGE PACHET REVIEWED AND EDUCATION GIVEN ABOUT NEW MEDICATIONS. PATIENT DENIED ANY QUESTIONS OR CONCERNS AT THIS TIME. DISCHARGED AT 1145 WITH DAUGHTER FOR TRANSPORT.
== END 2023-06-17 12:04 | disposition home or self-care (01) | DRG 177 ==
LOC: ER 01:05 → ERHOLD 01:06 → MEDS 01:06 → ER 01:06 → ERHOLD 01:06 → MEDS 09:33
PROVIDERS: Emergency Medicine; Family Medicine; Internal Medicine; ADMIT Student in an Organized Health Care Education/Training Program
DX: J69.0 Pneumonitis due to inhalation of food and vomit (principal); J96.01 Acute respiratory failure with hypoxia; I50.32 Chronic diastolic (congestive) heart failure; T82.392A Other mechanical complication of femoral arterial graft (bypass), initial encounter; I25.10 Atherosclerotic heart disease of native coronary artery without angina pectoris; I11.0 Hypertensive heart disease with heart failure; I73.9 Peripheral vascular disease, unspecified; N40.1 Benign prostatic hyperplasia with lower urinary tract symptoms; R33.8 Other retention of urine; J44.9 Chronic obstructive pulmonary disease, unspecified; E03.9 Hypothyroidism, unspecified; I44.0 Atrioventricular block, first degree; D69.6 Thrombocytopenia, unspecified; F17.210 Nicotine dependence, cigarettes, uncomplicated; Z86.718 Personal history of other venous thrombosis and embolism; Z95.1 Presence of aortocoronary bypass graft; Z86.711 Personal history of pulmonary embolism; Z79.890 Hormone replacement therapy; Z79.82 Long term (current) use of aspirin; Z79.01 Long term (current) use of anticoagulants; Z11.52 Encounter for screening for COVID-19; Z71.6 Tobacco abuse counseling
CPT/HCPCS: 0241U; 36415; 71045; 80053; 80069; 82947; 83605; 83735; 83880; 84145; 84443; 84484; 85025; 85610; 85730; 92610; 93005; 93010; 93306; 94640; 94664; 94762; 96365; 96366; 96367; 96375; 96376; 99285-25; A9270; G0378; J0456; J0696; J1644; J2405; J2930; J7050; J7512

== ENCOUNTER 2023-06-28 23:08 | Inpatient (IN) | payer OTHER ==
[~2023-06-28] VITALS: Ht 182.9 cm; Wt 96.0 kg
[~2023-06-28 23:08] MED LIST changes: +ISOSORBIDE MONO30 MG PO; +KLOR-CON 1010 ME9 PO; +Lisinopril2.5 MG PO; +PRED20 PO; -TAMS.4ER
[2023-06-28 23:25] LABS: Base Excess Venous -2.5 mmol/L; Bicarbonate Venous 21.3 mmol/L (24.0-30.0); PCO2 Venous 49.2 mmHg (38-42)
[2023-06-28 23:29] LABS: BASOPHILS ABSOLUTE AUTO 0.04 K/mm3 (0.00-0.23); BASOPHILS PERCENT AUTO 0 % (0-2); EOSINOPHILS ABSOLUTE AUTO 0.08 K/mm3 (0.00-0.68); EOSINOPHILS PERCENT AUTO 1 % (0-6); Hematocrit 37.5 % (37.0-53.0); Hemoglobin 11.9 g/dL (13.5-17.5); IMMATURE GRAN ABSOLUTE AUTO 0.08 K/mm3 (0.00-0.10); IMMATURE GRAN PERCENT AUTO 1 % (0-1); LYMPHOCYTES ABSOLUTE AUTO 1.49 K/mm3 (0.84-5.20); LYMPHOCYTES PERCENT AUTO 13 % (21-46); MONOCYTES ABSOLUTE AUTO 1.07 K/mm3 (0.16-1.47); MONOCYTES PERCENT AUTO 10 % (4-13); Mean Corpuscular HGB 30.4 pg (26.0-34.0); Mean Corpuscular HGB Conc 31.7 g/dL (31.5-36.5); Mean Corpuscular Volume 96 fL (80-100); Mean Platelet Volume 11.1 fL (9.1-12.4); NEUTROPHILS ABSOLUTE AUTO 8.35 K/mm3 (1.96-9.15); NEUTROPHILS PERCENT AUTO 75 % (41-73); Platelet Count 131 K/mm3 (150-400); RDW Coefficient Variation 13.8 % (11.7-14.2); RDW Standard Deviation 48.5 fL (35.1-46.3); Red Blood Cell Count 3.91 M/mm3 (4.30-5.90); White Blood Cell Count 11.11 K/mm3 (4.00-11.30)
[2023-06-28 23:48] LABS: Albumin, Blood 2.9 g/dL (3.4-5.0); Albumin/Globulin Ratio 0.8 (0.8-1.8); Bilirubin, Total 0.3 mg/dL (0.1-1.0); Bun/Creatinine Ratio 12.3 (12.0-20.0); Calcium, Blood 8.3 mg/dL (8.5-10.1); Creatinine, Blood 1.22 mg/dL (0.60-1.20); Globulin, Blood 3.7 g/dL (2.2-4.0); Potassium, Blood 4.1 mmol/L (3.5-5.5); Total Protein, Blood 6.6 g/dL (6.4-8.2)
[2023-06-29 01:34] LABS: Prothrombin Time Results 12.5 Sec (9.7-11.5)
[2023-06-29 02:05] LABS: Anti-Xa UFH, PHA Monitoring >1.50 IU/mL
[2023-06-29 02:09] LABS: Influenza A, PCR NEGATIVE (NEGATIVE); Influenza B, PCR NEGATIVE (NEGATIVE); SARS-Cov-2 (COVID-19) PCR, MMC NEGATIVE (NEGATIVE)
[2023-06-29 02:33] LABS: Resp Syncytial Virus, PCR POSITIVE (NEGATIVE)
--- NOTE | 2023-06-29 06:35 | NUR ---
PT ARRIVED TO ICU 1 AT 0620. HEPARIN RUNNING DIRECTED IN EMAR. A/O X4. REQUESTING URINAL. CALL LIGHT GIVEN.
[2023-06-29 07:16] VITALS: BP 131/79
[2023-06-29 07:30] VITALS: BP 141/75
--- NOTE | 2023-06-29 07:44 | NUR ---
Pt transferred out to U 8 via wc. All belongings transferred with pt. Report given to LISSA Horton.
[2023-06-29 09:11] LABS: BASOPHILS ABSOLUTE AUTO 0.01 K/mm3 (0.00-0.23); BASOPHILS PERCENT AUTO 0 % (0-2); EOSINOPHILS PERCENT AUTO 0 % (0-6); Hematocrit 39.2 % (37.0-53.0); Hemoglobin 12.7 g/dL (13.5-17.5); IMMATURE GRAN ABSOLUTE AUTO 0.07 K/mm3 (0.00-0.10); IMMATURE GRAN PERCENT AUTO 1 % (0-1); LYMPHOCYTES ABSOLUTE AUTO 0.37 K/mm3 (0.84-5.20); LYMPHOCYTES PERCENT AUTO 4 % (21-46); MONOCYTES PERCENT AUTO 1 % (4-13); Mean Corpuscular HGB 30.8 pg (26.0-34.0); Mean Corpuscular HGB Conc 32.4 g/dL (31.5-36.5); Mean Corpuscular Volume 95 fL (80-100); NEUTROPHILS ABSOLUTE AUTO 9.68 K/mm3 (1.96-9.15); NEUTROPHILS PERCENT AUTO 95 % (41-73); Platelet Count 138 K/mm3 (150-400); RDW Coefficient Variation 13.7 % (11.7-14.2); RDW Standard Deviation 47.2 fL (35.1-46.3); Red Blood Cell Count 4.13 M/mm3 (4.30-5.90); White Blood Cell Count 10.23 K/mm3 (4.00-11.30)
[2023-06-29 09:38] LABS: Albumin/Globulin Ratio 0.7 (0.8-1.8); Bilirubin, Total 0.6 mg/dL (0.1-1.0); Bun/Creatinine Ratio 13.6 (12.0-20.0); Calcium, Blood 8.7 mg/dL (8.5-10.1); Creatinine, Blood 1.1 mg/dL (0.60-1.20); Globulin, Blood 4.1 g/dL (2.2-4.0); Potassium, Blood 4.4 mmol/L (3.5-5.5); Total Protein, Blood 7.1 g/dL (6.4-8.2)
[2023-06-29 11:34] VITALS: BP 109/58
[2023-06-29 15:49] VITALS: BP 155/82
--- NOTE | 2023-06-29 17:58 | NUR ---
SHIFT SUMMARY; ASSUMED CARE FROM ED AT 0715. A/A/OX4. HEPARIN INFUSING ON ARRIVAL. MOVES SELF ON JUDY ANAYA IN ROOM. USES URINAL AT BEDSIDE, VSS. DENIES CP OR SOB. CARDIAC CONSULT TODAY, ECHO COMPLETED. PLAN FOR ANGIO ON FRIDAY. HEPARIN INFUSING AT 14UNITS/KG AT EVENING SHIFT CHANGE. WILL CONTINUE TO MONITOR AND TREAT UNTIL CHANGE OF SHIFT.
[2023-06-29 20:29] VITALS: BP 156/83
--- NOTE | 2023-06-29 21:42 | NUR ---
MEDICATIONS ADMINISTERED. C/O DIFFICULTY SLEEPING. NO OTHER CONCERNS AT THIS TIME. PILLS TAKEN WHOLE WITH FLUIDS. NO DIFFICULTY SWALLOWING.
--- NOTE | 2023-06-29 21:57 | NUR ---
CALL FROM PHARMACY; INCREASING HEPARIN TO 15 FROM 14.
--- NOTE | 2023-06-29 22:06 | NUR ---
HEPARIN DOSE ADJUSTED TO 15U/KG.
[2023-06-29 23:25] VITALS: BP 158/73
[2023-06-30 04:23] LABS: Hemoglobin 11.2 g/dL (13.5-17.5); Platelet Count 132 K/mm3 (150-400)
[2023-06-30 04:26] VITALS: BP 119/65
--- NOTE | 2023-06-30 05:32 | NUR ---
CONSULTING BUSINESS DEVELOPER SUMMARY: A&Ox4. PLEASANT AND COOPERATIVE WITH CARE. CALLS APPROPRIATELY AND ABLE TO COMMUNICATE EFFECTIVELY. VOIDING USING BEDSIDE URINAL. DIFFICULT AMBULATION SECONDARY TO SPINAL FUSION x3. HEPARIN GTTS INCREASED FROM 14 TO 15 AND IS NOW 16u/KG/HR. NO S/SX BLEEDING NOTED. C/O SOME NEUROPATHIC PAIN BUT DELINED OFFER OF ANY INTERVENTIONS. AV-PACED ON TELE. LABS DRAWN THIS MORNING. MEDICATED x2 ~2300 C/O NAUSEA. NO FURTHER INCIDENTS NOTED. NO C/O CHEST PAIN T/O SHIFT. REPORT TO ONCOMING RN.
--- NOTE | 2023-06-30 08:15 | NUR ---
INITIAL ASSESSMENT: Patient is awake sitting on the edge of the bed eating breakfast. He is alert and oriented x4. He denies chest pain or pressure at this time, he states," I haven't felt this good in a couple of weeks." HRR, he is 100% ventrucular paced with a rate in the 60s. LS with EXP wheeze and rhonchi on the right, dim in both bases. He has a harsh occasionally PC with howell sputum. BT+, he states he has not has a BM since he arrived at the hospital. He denies any N/V at this time. VSS. AM meds given at this time. He denies other needs. Call light in reach.
[2023-06-30 08:20] VITALS: BP 130/75
[2023-06-30 11:24] VITALS: BP 113/56
--- NOTE | 2023-06-30 13:29 | NUR ---
Update: Patient has been resting in between meals. Dr. Monique has been in to see the patient and the plan is for an angiogram tomorrow, he will be NPO after midnight. The patient was able to ambulate into the shower and bathe. He is back in bed and resting at this time. VSS. Call light in reach.
[2023-06-30 15:51] VITALS: BP 124/64
--- NOTE | 2023-06-30 18:00 | NUR ---
Summary: Patient has been alert and oriented x4. No C/O pain, he did C/O heartburn late in shift, protonix and Maalox given. HRR, he has been 100% V-Paced in the 60s-80s. LS are DIM T/O with some exp wheezing and rhonchi note. He has a moderately productive cough with howell spututm. Sputum sample was sent, patient was started on Azithromycin. BT+, he has not had any C/O nausea and has not had a BM today. PPP, he has 2+ pitting edema to BLE. Dr. Monique has been to see the patient, plan is for an angiogram some time tomorrow. Patient is currently resting comfrotably and denies needs at this time. Will report to oncoming RN.
[2023-06-30 22:23] VITALS: BP 133/66
--- NOTE | 2023-06-30 22:30 | NUR ---
ASSUMPTION OF CARE: PATIENT ALERT AND ORIENTED X 4. INFUSING HEPARIN, VERIFIED WITH DAY RN. DENIES CHEST PAIN PRESSURE OR SOB. NPO AT 0000 FOR CATH. EXTENSIVE CARDIAC HISTORY. CURRENT EVERDAY SMOKER. HAS BEEN VOIDING IN THE URINAL IN BED. SLIGHT PEDAL EDEMA DENIES WORSENING. COUGH WITH PRODUCTIVE SPUTUM, DROPLET PRECAUTIONS. RA, SPO2 >92%, HISOTRY OF COPD. NO HOME OXYGEN BASE ENDORSED.
[2023-07-01] VITALS (34 sets, daily range): BP systolic 94–147; BP diastolic 43–111
[2023-07-01 05:22] LABS: BASOPHILS ABSOLUTE AUTO 0.02 K/mm3 (0.00-0.23); BASOPHILS PERCENT AUTO 0 % (0-2); EOSINOPHILS ABSOLUTE AUTO 0.03 K/mm3 (0.00-0.68); EOSINOPHILS PERCENT AUTO 1 % (0-6); Hematocrit 34.4 % (37.0-53.0); Hemoglobin 11.3 g/dL (13.5-17.5); IMMATURE GRAN ABSOLUTE AUTO 0.04 K/mm3 (0.00-0.10); IMMATURE GRAN PERCENT AUTO 1 % (0-1); LYMPHOCYTES ABSOLUTE AUTO 0.94 K/mm3 (0.84-5.20); LYMPHOCYTES PERCENT AUTO 17 % (21-46); MONOCYTES ABSOLUTE AUTO 0.78 K/mm3 (0.16-1.47); MONOCYTES PERCENT AUTO 14 % (4-13); Mean Corpuscular HGB 30.8 pg (26.0-34.0); Mean Corpuscular HGB Conc 32.8 g/dL (31.5-36.5); Mean Corpuscular Volume 94 fL (80-100); Mean Platelet Volume 10.8 fL (9.1-12.4); NEUTROPHILS ABSOLUTE AUTO 3.71 K/mm3 (1.96-9.15); NEUTROPHILS PERCENT AUTO 67 % (41-73); Platelet Count 106 K/mm3 (150-400); RDW Coefficient Variation 13.7 % (11.7-14.2); RDW Standard Deviation 46.7 fL (35.1-46.3); Red Blood Cell Count 3.67 M/mm3 (4.30-5.90); White Blood Cell Count 5.52 K/mm3 (4.00-11.30)
[2023-07-01 05:54] LABS: Bun/Creatinine Ratio 19.5 (12.0-20.0); Calcium, Blood 8.3 mg/dL (8.5-10.1); Creatinine, Blood 1.33 mg/dL (0.60-1.20)
--- NOTE | 2023-07-01 06:34 | NUR ---
EOS: PATIENT HAS HAD NO CHANGES FROM ASSUMPTION OF CARE NPO SINCE 0000, HEPARIN GTT HAS HAD NO CHANGE THERAPEUTIC AT THIS TIME. PLAN FOR CATH, PATIENT AGREEABLE TO PLAN. NO CONCERNS FROM THIS RN STILL DENYING CHEST PAIN PRESSURE OR SOB. COOPERATIVE WITH CARE NO CONCERNS.
--- NOTE | 2023-07-01 08:18 | NUR ---
PATIENT TO [facility] AT THIS TIME.
--- NOTE | 2023-07-01 08:52 | NUR ---
AM NOTE: PATIENT ALERT AND ORIENTED X4. ABLE TO MAKE NEEDS KNOWN. CALM AND COOPERATIVE WITH CARES. ABLE TO MOVE ALL EXTREMITIES EQUALLY. SBA TO BATHROOM. BILATERAL GLASS LOADING EQUIPMENT TENDER STRENGTH. HISTORY OF BILATERAL LOWER EXTREMITY NEUROPATHY. DENIES HEADACHE/VISION CHANGES. TELE SHOWING AV PACED WITH HR 60'S. BP STABLE. PPP. DENIES CHEST PAIN/PRESSURE/PALPITATIONS. HEPARIN INFUSING THIS AM PER EMAR, PLACED ON STANDBY WHEN PATIENT TAKEN TO HEART CENTER, PHARMACY NOTIFIED. NPO PRIOR TO ANGIOGRAM. EDEMA NOTED TO BLE. ON ROOM AIR SATING ABOVE 95%. EVEN AND UNLABORED RESPIRATIONS. FREQUENT PRODUCTIVE COUGH. SPUTUM GREEN/NUNEZ. PATIENT STATES HE FEELS CONGESTION WITHIN HIS SINUSES. DENIES SOB. BOWEL TONES PRESENT. DENIES ISSUES WITH VOIDING. NPO THIS AM PRIOR TO ANGIO. DENIES ABDOMIANL PAIN/NAUSEA. USING URINAL TO VOID. UP WITH SBA TO BATHROOM. PATIENT STATES HE HAD BOWEL MOVEMENT PRIOR SHIFT. SKIN OVERALL C/D/I. PATIENT CURRENTLY IN HEART CENTER. DAUGHTER AT BEDSIDE IN PCU.
--- NOTE | 2023-07-01 10:35 | NUR ---
[facility]IENT BACK [facility]. LEFT RADIAL SITE WNL. TR BAND AND ARM BOARD IN PLACE. THIS RN REVIEWED AND EDUCATED ON POST RADIAL SITE PRECAUTIONS. SITE SOFT AND NONTENDER. POST VITALS IN PROGRESS. ORDERS TO DC HEPARIN, PHARMACY NOTIFIED AND TO INFUSE 500ML NS AT 100ML/HR. ORDERS IN PLACE. DAUGHTER AT BEDSIDE. CALL LIGHT IN REACH. PATIENT ATE BREAKFAST.
--- NOTE | 2023-07-01 11:48 | NUR ---
Upon receiving a referral for spiritual care, I visited the patient. 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 I normalize his experience, reinforce helpful attitudes and perspectives and provide therapeutic listening and grief support. Patient responded well and showed signs of an elevated mood. I will continue to remain available to patient and family.
--- NOTE | 2023-07-01 13:21 | NUR ---
DR. VEGA BY TO DISCUSS PLAN OF CARE WITH PATIENT, DAUGHTER AND THIS RN AT BEDSIDE FOR PROVIDER ROUNDING. PLAN FROM DR. VEGA, RESUME HOME MEDS AND FOLLOW UP APPOINTMENT WITH DR. VEGA. DR. BUCKLEY UPDATED. PATIENT TR BAND DEFLATED AND REMAINS IN PLACE FOR ONE HOUR. NO SIGNS OF BLEEDING. REMAINS SOFT/NONTENDER. ARM BOARD IN PLACE. PATIENT SBP IN THE 90'S. VITALS Q15. DR. BUCKLEY UPDATED ON BP. PATIENT DENIES ANY DIZZINESS/PAIN. PATIENT STATES HE IS "FEELING GREAT". FINISHED LUNCH, RESTING IN BED. NS CONTINUES TO INFUSE PER DR. VEGA ORDERS POST CATH.
--- NOTE | 2023-07-01 13:51 | NUR ---
DR. BURGOS UPDATED ON PATIENT BLOOD PRESSURE. THIS RN REPORTED MOST RECENT BLOOD PRESSURES WITH SBP TRENDING IN THE 90'S. AND MAP TRENDING 54-70'S. PATIENT ASYMPTOMATIC WITH BLOOD PRESSURES. NO SIGNS OF BLEEDING. ANGIO SITE REMAINS SOFT/NONTENDER. NEW ORDERS FROM DR. BURGOS FOR THIS RN TO PLACE INCLUDE: TO REDUCE LISINOPRIL DOSE TO 5MG PO DAILY TO REDUCE METOPROLOL DOSE TO 12.5MG PO BID TO INFUSE A TOTAL OF 1000ML NS INSTEAD OF JUST 500ML NS POST PHYSICIAN LOCUMS URGENT CARE. ORDERS ADJUSTED AND DR. BUCKLEY UPDATED.
--- NOTE | 2023-07-01 15:53 | NUR ---
DR. BUCKLEY CALLED TO UPDATE ON BLOOD PRESSURE. PLAN FOR PATIENT TO STAY THE NIGHT. SPEECH THERAPY IN AM. ORDERS IN PLACE. DAUGHTER CHRISTINE CALLED AND UPDATED. NS CONTINUES TO INFUSE AT 100ML/HR X1 BAG.
--- NOTE | 2023-07-01 17:39 | NUR ---
SHIFT SUMMARY: NO ACUTE CHANGES. PATIENT REMAINS ON NS 100ML/HR X1 BAG. TELE REMAINS AV PACED WITH HR 60-70'S. BP 106/68(79) AT THIS TIME. LEFT ULNAR SITE REMAINS SOFT/NONTENDER. ARM BOARD REMAINS IN PLACE. NO SIGNS OF BLEEDING. USING URINAL NEEDED. DENIES CHEST PAIN/PRESSURE. EATING DINNER AT THIS TIME SITTING ON EDGE OF BED. CONTINUES TO HAVE FREQUENT COUGH WITH SPUTUM PRODUCTION. SATING MID 90'S ON ROOM AIR. CALL LIGHT IN REACH. DENIES NEEDS AT THIS TIME.
--- NOTE | 2023-07-01 21:55 | NUR ---
ASSUMPTION OF CARE AFTER RECEIVING REPORT FROM NAKIA RN, THIS RN ASSUMED CARE AT APPROX 1915. PATIENT SLEEPING DURING INITIAL ENCOUNTER, EASILY AROUSABLE TO VERBAL STIMULI. IS ALERT AND ORIENTED X4. ABLE TO COMMUNICATE NEEDS EFFECTIVELY. TELEMETRY SHOWING AV PACED 70's-90's. BP SOFT FOLLOWING ANGIOGRAM TODAY, RECEIVED X1 BAG OF NORMAL SALINE. BP STABLE, SBP 110's-120's. MAP >65. L WRIST SITE FROM ANGIOGRAM, IS SOFT, NONTENDER, NO HEMATOMA NOTED. TEGADERM DRESSING. ARMBOARD IN PLACE. DENIES CHEST PAIN OR PRESSURE. ON ROOM AIR, SATS >90%. FREQUENT HACKING PRODUCTIVE COUGH. IS A STAND BY ASSIST TO RESTROOM. USES URINAL INDEPENDENTLY IN BED. CALL LIGHT IN REACH.
[2023-07-02] VITALS (8 sets, daily range): BP systolic 115–176; BP diastolic 53–83
[2023-07-02 05:07] LABS: BASOPHILS ABSOLUTE AUTO 0.02 K/mm3 (0.00-0.23); BASOPHILS PERCENT AUTO 0 % (0-2); EOSINOPHILS ABSOLUTE AUTO 0.02 K/mm3 (0.00-0.68); EOSINOPHILS PERCENT AUTO 0 % (0-6); Hematocrit 33.3 % (37.0-53.0); IMMATURE GRAN ABSOLUTE AUTO 0.02 K/mm3 (0.00-0.10); IMMATURE GRAN PERCENT AUTO 0 % (0-1); LYMPHOCYTES ABSOLUTE AUTO 0.83 K/mm3 (0.84-5.20); LYMPHOCYTES PERCENT AUTO 16 % (21-46); MONOCYTES ABSOLUTE AUTO 0.78 K/mm3 (0.16-1.47); MONOCYTES PERCENT AUTO 15 % (4-13); Mean Corpuscular HGB 30.7 pg (26.0-34.0); Mean Corpuscular Volume 93 fL (80-100); NEUTROPHILS ABSOLUTE AUTO 3.47 K/mm3 (1.96-9.15); NEUTROPHILS PERCENT AUTO 68 % (41-73); Platelet Count 109 K/mm3 (150-400); RDW Standard Deviation 47.1 fL (35.1-46.3); Red Blood Cell Count 3.58 M/mm3 (4.30-5.90); White Blood Cell Count 5.14 K/mm3 (4.00-11.30)
[2023-07-02 05:24] LABS: Albumin, Blood 2.6 g/dL (3.4-5.0); Albumin/Globulin Ratio 0.8 (0.8-1.8); Bilirubin, Total 0.5 mg/dL (0.1-1.0); Bun/Creatinine Ratio 16.4 (12.0-20.0); Calcium, Blood 8.4 mg/dL (8.5-10.1); Creatinine, Blood 1.28 mg/dL (0.60-1.20); Globulin, Blood 3.4 g/dL (2.2-4.0)
--- NOTE | 2023-07-02 05:38 | NUR ---
SHIFT SUMMARY NO ACUTE CHANGES SINCE ASSUMPTION OF CARE NOTE. PATIENT SLEPT THROUGHOUT SHIFT, EASILY AROUSABLE TO VERBAL STIMULI. TELEMETRY SHOWING PACED 70's. BP REMAINS STABLE SINCE FLUID BOLUS, SBP 110's-130's. MAP >65. L WRIST SITE REMAINS WNL - SOFT, NONTENDER, NO HEMATOMA. ARMBOARD IN PLACE. REMAINS ON ROOM AIR, SATS >90%. HACKING, PRODUCTIVE COUGH THROUGHOUT SHIFT, YELLOW/NUNEZ SPUTUM NOTED. RECEIVED PRN BREATHING TREATMENTS FOR INCREASED SHORTNESS OF BREATH. USES URINAL INDEPENDENTLY IN BED, VOIDING. NO BM THIS SHIFT. ABLE TO REPOSITION HIMSELF INDEPENDENTLY. CALL LIGHT IN REACH. WILL REPORT TO ONCOMING RN.
--- NOTE | 2023-07-02 17:05 | NUR ---
SHIFT SUMMARY PT IS A&OX4, 1P SBA FOR TX, SP02 >90% ON RA, VPACED 60'S-70'S ON TELE W/O ANY ANGINA, AND WE HAVE HAS NO EVENTS THIS SHIFT. THE PT IS NOW MEDICAL STATUS. WE ARE AWATING FOR A BARIUM SWALLOW BEFORE DISCHARGE. DR. BUCKLEY IS CONCERENED ABOUT A POSSIBLE STRICTURE AND WOULD LIKE THE STUDY DONE INPATIENT. THE PT HAS AN ANGIOGRAM 07/01/23 W/ ACCESS IN HIS LEFT WRIST. THE SIFE HAS A TEGADERM THAT IS C/D/I W/O MARTINEZ LUCIANATOMA. FIRE IGNITION RISK HAS BEEN ASSESSED. SEE NOTES FOR ANY UPDATES.
--- NOTE | 2023-07-02 22:29 | NUR ---
ASSUMPTION OF CARE AFTER RECEIVING REPORT FROM TIARA RN, THIS RN ASSUMED CARE AT APPROX 1915. PATIENT SLEEPING DURING INITIAL ENCOUNTER, EASILY AROUSABLE TO VERBAL STIMULI. IS ALERT AND ORIENTED X4, ABLE TO COMMUNICATE NEEDS EFFECTIVELY. ELEVATED TEMPERATURE NOTED, >100.0 ORALLY. MD NOTIFIED WHILE ROUNDING ON UNIT, RECEIVED ORDER FOR PO TYLENOL. ADMINISTERED PER EMAR. TELEMETRY SHOWING AV PACED 80's. BP STABLE. DENIES CHEST PAIN OR PRESSURE. L WRIST SITE FROM ANGIO 07/01/23 WNL. ON ROOM AIR, SATS >90%. FREQUENT HACKING PRODUCTIVE COUGH. YELLOW SPUTUM NOTED. MILDLY TACHYPNEIC AT REST. RECEIVING PRN BREATHING TREATMENTS. ABLE TO REPOSITION HIMSELF INDEPENDENTLY IN BED. USES URINAL INDEPENDENTLY. CALL LIGHT IN REACH.
--- NOTE | 2023-07-03 00:44 | NUR ---
TRANSFER OF CARE NO ACUTE CHANGES SINCE PREVIOUS NOTE. PATIENT CURRENTLY SLEEPING. RESPIRATIONS EVEN, UNLABORED. EASILY AROUSABLE TO VERBAL STIMULI. NO SIGNS OF DISTRESS NOTED. ELEVATED TEMPERATURE MANAGED WITH PO TYLENOL. TELEMETRY SHOWING AV PACED 60's. REMAINS ON ROOM AIR, SATS >90%. CONTINUED HACKING, PRODUCTIVE COUGH WHILE AWAKE. ABLE TO REPOSITION HIMSELF IN BED INDEPENDENTLY. URINAL AT BEDSIDE, VOIDING. CALL LIGHT IN REACH. REPORT GIVEN TO STEVE ALCARAZ TO ASSUME CARE AT 0100.
[2023-07-03 04:01] VITALS: BP 144/76
[2023-07-03 04:30] LABS: BASOPHILS ABSOLUTE AUTO 0.01 K/mm3 (0.00-0.23); BASOPHILS PERCENT AUTO 0 % (0-2); EOSINOPHILS ABSOLUTE AUTO 0.06 K/mm3 (0.00-0.68); EOSINOPHILS PERCENT AUTO 1 % (0-6); Hematocrit 34.3 % (37.0-53.0); Hemoglobin 11.3 g/dL (13.5-17.5); IMMATURE GRAN ABSOLUTE AUTO 0.03 K/mm3 (0.00-0.10); IMMATURE GRAN PERCENT AUTO 1 % (0-1); LYMPHOCYTES PERCENT AUTO 20 % (21-46); MONOCYTES ABSOLUTE AUTO 0.59 K/mm3 (0.16-1.47); MONOCYTES PERCENT AUTO 13 % (4-13); Mean Corpuscular HGB 30.7 pg (26.0-34.0); Mean Corpuscular HGB Conc 32.9 g/dL (31.5-36.5); Mean Corpuscular Volume 93 fL (80-100); Mean Platelet Volume 11.2 fL (9.1-12.4); NEUTROPHILS ABSOLUTE AUTO 2.96 K/mm3 (1.96-9.15); NEUTROPHILS PERCENT AUTO 65 % (41-73); Platelet Count 118 K/mm3 (150-400); RDW Coefficient Variation 14.1 % (11.7-14.2); RDW Standard Deviation 47.1 fL (35.1-46.3); Red Blood Cell Count 3.68 M/mm3 (4.30-5.90); White Blood Cell Count 4.55 K/mm3 (4.00-11.30)
[2023-07-03 04:54] LABS: Albumin, Blood 2.5 g/dL (3.4-5.0); Albumin/Globulin Ratio 0.7 (0.8-1.8); Bilirubin, Total 0.6 mg/dL (0.1-1.0); Bun/Creatinine Ratio 14.2 (12.0-20.0); Calcium, Blood 8.5 mg/dL (8.5-10.1); Creatinine, Blood 1.13 mg/dL (0.60-1.20); Globulin, Blood 3.5 g/dL (2.2-4.0); Potassium, Blood 4.1 mmol/L (3.5-5.5)
--- NOTE | 2023-07-03 06:10 | NUR ---
SHIFT SUMMARY SEE PREVIOUS NOTE. POST ASSUMPTION OF CARE, PT RESTING. VS CONTINUE TO REMAIN STABLE. REMAINS PACED. REMAINS W/O CP/PRESSURE. PT AWAITING BARIUM SWALLOW TODAY. PLEASANT AND COOPERATIVE, NON IMPULSIVE. USES CALL LIGHT APPROPRIATELY.
[2023-07-03 07:27] VITALS: BP 146/80
--- NOTE | 2023-07-03 07:40 | NUR ---
PT BEING TRANSFERED TO ROOM 361. REPORT GIVEN TO PATY ALCARAZ . VS STABLE. PT INFORMED OF PLAN FOR THE DAY.
[2023-07-03 14:50] VITALS: BP 154/73
[2023-07-03] MEDS ORDERED: ATOR80 PO (16:40)
== END 2023-07-03 17:19 | disposition home or self-care (01) | DRG 281 ==
LOC: ER 23:08 → PCU 23:09 → ERHOLD 23:09 → PCU 06-29 06:15 → ICUE 06-29 06:16 → PCU 06-29 07:30 → MEDS 07-03 07:45
PROVIDERS: Family Medicine; Hospitalist; Student in an Organized Health Care Education/Training Program; ADMIT Internal Medicine
PROC: B2111ZZ Fluoroscopy of Multiple Coronary Arteries using Low Osmolar Contrast (ICD-10-PCS; principal; 2023-07-01)
PROC: B2181ZZ Fluoroscopy of Left Internal Mammary Bypass Graft using Low Osmolar Contrast (ICD-10-PCS; 2023-07-01)
PROC: 4A023N7 Measurement of Cardiac Sampling and Pressure, Left Heart, Percutaneous Approach (ICD-10-PCS; 2023-07-01)
DX: I21.4 Non-ST elevation (NSTEMI) myocardial infarction (principal); B37.0 Candidal stomatitis; E87.20 Acidosis, unspecified; J44.9 Chronic obstructive pulmonary disease, unspecified; I73.9 Peripheral vascular disease, unspecified; I10 Essential (primary) hypertension; D64.9 Anemia, unspecified; F17.210 Nicotine dependence, cigarettes, uncomplicated; I25.10 Atherosclerotic heart disease of native coronary artery without angina pectoris; E78.00 Pure hypercholesterolemia, unspecified; D69.6 Thrombocytopenia, unspecified; N40.0 Benign prostatic hyperplasia without lower urinary tract symptoms; J20.5 Acute bronchitis due to respiratory syncytial virus; K22.2 Esophageal obstruction; Z86.718 Personal history of other venous thrombosis and embolism; Z86.711 Personal history of pulmonary embolism; Z91.018 Allergy to other foods; Z79.811 Long term (current) use of aromatase inhibitors; Z79.2 Long term (current) use of antibiotics; Z79.82 Long term (current) use of aspirin; Z79.01 Long term (current) use of anticoagulants; Z95.1 Presence of aortocoronary bypass graft; Z95.0 Presence of cardiac pacemaker; Z98.890 Other specified postprocedural states; Z71.6 Tobacco abuse counseling
CPT/HCPCS: 0241U; 36415; 71046; 74230; 76937; 80048; 80053; 82803; 83605; 83880; 84484; 85014; 85018; 85025; 85049; 85520; 85610; 85730; 87070; 87205; 92610; 92611; 93005; 93010; 93308; 93321; 93455; 94640; 94664; 94760; 94762; 96365; 96366; 96375; 99152; 99153; 99285-25; A9270; C1769; C1887; C1894; J0456; J1644; J1940; J2250; J2405; J2930; J3010; J7030; J7050; J7626; Q9967

== ENCOUNTER 2023-12-15 09:39 | Day surgery (SDC) | payer OTHER ==
[~2023-12-15] VITALS: Ht 182.9 cm; Wt 91.1 kg
[~2023-12-15 09:39] MED LIST changes: +ATOR80 PO; +Lactated Ringer's 1,000 ML IV ONE
[2023-12-15] MEDS ORDERED: DICLOFENAC SOD100 GM (10:05)
[2023-12-15] MEDS ORDERED: Celexa20 MG (10:05)
[2023-12-15] MEDS ORDERED: Lidocaine HCl 4% 5 ML SDA ONE (10:22)
[2023-12-15] MEDS ORDERED: Lactated Ringer's 1,000 ML IV ONE (10:51)
[2023-12-15] MEDS ORDERED: propofoL 50 ML IV ONE (11:00)
[2023-12-15 11:55] VITALS: BP 152/88
== END 2023-12-15 12:03 | disposition home or self-care (01) ==
LOC: ORSCSDS 09:39
PROVIDERS: Specialist
PROC: 0DJ08ZZ Inspection of Upper Intestinal Tract, Via Natural or Artificial Opening Endoscopic (ICD-10-PCS; principal; 2023-12-15 11:00)
DX: R13.10 Dysphagia, unspecified (principal); K44.9 Diaphragmatic hernia without obstruction or gangrene; I25.2 Old myocardial infarction; K21.9 Gastro-esophageal reflux disease without esophagitis; Z86.718 Personal history of other venous thrombosis and embolism; E78.5 Hyperlipidemia, unspecified; Z95.1 Presence of aortocoronary bypass graft; Z86.711 Personal history of pulmonary embolism; I25.10 Atherosclerotic heart disease of native coronary artery without angina pectoris; I12.9 Hypertensive chronic kidney disease with stage 1 through stage 4 chronic kidney disease, or unspecified chronic kidney disease; N18.30 Chronic kidney disease, stage 3 unspecified; E03.9 Hypothyroidism, unspecified; Z95.0 Presence of cardiac pacemaker; F17.210 Nicotine dependence, cigarettes, uncomplicated; Z79.82 Long term (current) use of aspirin; Z79.01 Long term (current) use of anticoagulants; Z79.899 Other long term (current) drug therapy
CPT/HCPCS: C1769; J2001; J2704; J7120

== ENCOUNTER 2024-04-09 03:18 | Emergency (ER) | payer OTHER ==
[~2024-04-09] VITALS: Ht 182.9 cm; Wt 95.2 kg
[~2024-04-09 03:18] MED LIST changes: +Celexa20 MG; +DICLOFENAC SOD100 GM; -Lactated Ringer's 1,000 ML IV ONE
[2024-04-09] MEDS ORDERED: Ipratropium/Albuterol SulF 2.5-0.5MG/3 ML Amp INH ONE (03:25)
[2024-04-09 03:42] LABS: BASOPHILS ABSOLUTE AUTO 0.05 K/mm3 (0.00-0.23); BASOPHILS PERCENT AUTO 1 % (0-2); EOSINOPHILS PERCENT AUTO 1 % (0-6); Hematocrit 39.1 % (37.0-53.0); Hemoglobin 12.7 g/dL (13.5-17.5); IMMATURE GRAN ABSOLUTE AUTO 0.02 K/mm3 (0.00-0.10); IMMATURE GRAN PERCENT AUTO 0 % (0-1); LYMPHOCYTES ABSOLUTE AUTO 1.24 K/mm3 (0.84-5.20); LYMPHOCYTES PERCENT AUTO 15 % (21-46); MONOCYTES ABSOLUTE AUTO 0.69 K/mm3 (0.16-1.47); MONOCYTES PERCENT AUTO 8 % (4-13); Mean Corpuscular HGB 28.9 pg (26.0-34.0); Mean Corpuscular HGB Conc 32.5 g/dL (31.5-36.5); Mean Corpuscular Volume 89 fL (80-100); Mean Platelet Volume 10.9 fL (9.1-12.4); NEUTROPHILS ABSOLUTE AUTO 6.09 K/mm3 (1.96-9.15); NEUTROPHILS PERCENT AUTO 75 % (41-73); Platelet Count 126 K/mm3 (150-400); RDW Coefficient Variation 14.1 % (11.7-14.2); RDW Standard Deviation 45.6 fL (35.1-46.3); White Blood Cell Count 8.19 K/mm3 (4.00-11.30)
[2024-04-09] MEDS ORDERED: PredniSONE 20 MG Tab PO ONE (03:55)
[2024-04-09 04:04] LABS: Albumin, Blood 3.2 g/dL (3.4-5.0); Albumin/Globulin Ratio 0.9 (0.8-1.8); Bilirubin, Total 0.8 mg/dL (0.1-1.0); Bun/Creatinine Ratio 6.8 (12.0-20.0); Calcium, Blood 8.9 mg/dL (8.5-10.1); Creatinine, Blood 1.17 mg/dL (0.60-1.20); Globulin, Blood 3.7 g/dL (2.2-4.0); Potassium, Blood 3.3 mmol/L (3.5-5.5); Total Protein, Blood 6.9 g/dL (6.4-8.2)
[2024-04-09 06:00] VITALS: BP 160/98
[2024-04-09] MEDS ORDERED: Prednisone10 MG PO (06:04)
== END 2024-04-09 06:14 | disposition home or self-care (01) ==
LOC: ER 03:18
PROVIDERS: Emergency Medicine
DX: J44.1 Chronic obstructive pulmonary disease with (acute) exacerbation (principal); D64.9 Anemia, unspecified; I10 Essential (primary) hypertension; E78.00 Pure hypercholesterolemia, unspecified; F17.210 Nicotine dependence, cigarettes, uncomplicated; Z79.899 Other long term (current) drug therapy; Z79.82 Long term (current) use of aspirin; Z91.018 Allergy to other foods
CPT/HCPCS: 71046; 80053; 85025; 93005; 93010; 94640; 94664; 99285-25; J7512

== ENCOUNTER 2024-04-27 14:27 | Emergency (ER) | payer OTHER ==
[~2024-04-27] VITALS: Ht 182.9 cm; Wt 90.7 kg
[~2024-04-27 14:27] MED LIST changes: +Prednisone10 MG PO
[2024-04-27 14:58] LABS: BASOPHILS ABSOLUTE AUTO 0.04 K/mm3 (0.00-0.23); BASOPHILS PERCENT AUTO 1 % (0-2); EOSINOPHILS ABSOLUTE AUTO 0.07 K/mm3 (0.00-0.68); EOSINOPHILS PERCENT AUTO 1 % (0-6); Hematocrit 40.8 % (37.0-53.0); Hemoglobin 13.2 g/dL (13.5-17.5); IMMATURE GRAN ABSOLUTE AUTO 0.03 K/mm3 (0.00-0.10); IMMATURE GRAN PERCENT AUTO 1 % (0-1); LYMPHOCYTES ABSOLUTE AUTO 1.23 K/mm3 (0.84-5.20); LYMPHOCYTES PERCENT AUTO 20 % (21-46); MONOCYTES ABSOLUTE AUTO 0.46 K/mm3 (0.16-1.47); MONOCYTES PERCENT AUTO 8 % (4-13); Mean Corpuscular HGB 28.4 pg (26.0-34.0); Mean Corpuscular HGB Conc 32.4 g/dL (31.5-36.5); Mean Corpuscular Volume 88 fL (80-100); Mean Platelet Volume 11.1 fL (9.1-12.4); NEUTROPHILS PERCENT AUTO 70 % (41-73); Platelet Count 190 K/mm3 (150-400); RDW Coefficient Variation 14.6 % (11.7-14.2); RDW Standard Deviation 46.5 fL (35.1-46.3); Red Blood Cell Count 4.65 M/mm3 (4.30-5.90); White Blood Cell Count 6.13 K/mm3 (4.00-11.30)
[2024-04-27 15:37] LABS: Albumin, Blood 3.3 g/dL (3.4-5.0); Albumin/Globulin Ratio 0.9 (0.8-1.8); Bilirubin, Total 0.8 mg/dL (0.1-1.0); Bun/Creatinine Ratio 8.9 (12.0-20.0); Calcium, Blood 9.2 mg/dL (8.5-10.1); Creatinine, Blood 1.23 mg/dL (0.60-1.20); Globulin, Blood 3.8 g/dL (2.2-4.0); Magnesium, Blood 2.4 mg/dL (1.6-2.4); Potassium, Blood 4.6 mmol/L (3.5-5.5); Total Protein, Blood 7.1 g/dL (6.4-8.2)
[2024-04-27] MEDS ORDERED: NS 1,000 ML IV SCH (16:40)
[2024-04-27 18:14] VITALS: BP 100/66
== END 2024-04-27 18:23 | disposition home or self-care (01) ==
LOC: ER 14:27
PROVIDERS: Physician Assistant
DX: I95.9 Hypotension, unspecified (principal); I25.10 Atherosclerotic heart disease of native coronary artery without angina pectoris; I10 Essential (primary) hypertension; E78.5 Hyperlipidemia, unspecified; J44.9 Chronic obstructive pulmonary disease, unspecified; I73.9 Peripheral vascular disease, unspecified; N40.0 Benign prostatic hyperplasia without lower urinary tract symptoms; E78.00 Pure hypercholesterolemia, unspecified; F17.210 Nicotine dependence, cigarettes, uncomplicated; Z95.0 Presence of cardiac pacemaker; Z95.1 Presence of aortocoronary bypass graft; Z98.62 Peripheral vascular angioplasty status; Z86.711 Personal history of pulmonary embolism; Z86.718 Personal history of other venous thrombosis and embolism; Z91.018 Allergy to other foods; Z79.890 Hormone replacement therapy; Z79.82 Long term (current) use of aspirin; Z79.01 Long term (current) use of anticoagulants; Z79.52 Long term (current) use of systemic steroids; Z79.899 Other long term (current) drug therapy
CPT/HCPCS: 71046; 80053; 83735; 85025; 93005; 93010; 96360; 99284-25; J7030

== ENCOUNTER 2024-05-31 18:49 | Emergency (ER) | payer OTHER ==
[~2024-05-31] VITALS: Ht 182.9 cm; Wt 90.7 kg
[2024-05-31 19:01] VITALS: BP 129/72
[2024-05-31 19:51] LABS: Influenza A, PCR NEGATIVE (NEGATIVE); Influenza B, PCR NEGATIVE (NEGATIVE); Resp Syncytial Virus, PCR NEGATIVE (NEGATIVE); SARS-Cov-2 (COVID-19) PCR, MMC NEGATIVE (NEGATIVE)
[2024-05-31] MEDS ORDERED: Ketorolac Tromethamine 15mg Vial IM ONE (20:50)
== END 2024-05-31 21:45 | disposition home or self-care (01) ==
LOC: ER 18:49
PROVIDERS: Student in an Organized Health Care Education/Training Program
DX: B34.9 Viral infection, unspecified (principal); J02.9 Acute pharyngitis, unspecified; R19.7 Diarrhea, unspecified; I10 Essential (primary) hypertension; I25.10 Atherosclerotic heart disease of native coronary artery without angina pectoris; E78.00 Pure hypercholesterolemia, unspecified; J44.9 Chronic obstructive pulmonary disease, unspecified; F17.210 Nicotine dependence, cigarettes, uncomplicated; Z91.018 Allergy to other foods; Z79.890 Hormone replacement therapy; Z79.899 Other long term (current) drug therapy; Z79.82 Long term (current) use of aspirin; Z79.01 Long term (current) use of anticoagulants
CPT/HCPCS: 0241U; 96372; 99283-25; J1885

== ENCOUNTER 2024-06-12 17:40 | Emergency (ER) | payer OTHER ==
[~2024-06-12] VITALS: Ht 182.9 cm; Wt 90.7 kg
[2024-06-12 23:58] VITALS: BP 154/74
== END 2024-06-12 23:58 | disposition home or self-care (01) ==
LOC: ER 17:40
DX: K40.90 Unilateral inguinal hernia, without obstruction or gangrene, not specified as recurrent (principal); I10 Essential (primary) hypertension; I25.10 Atherosclerotic heart disease of native coronary artery without angina pectoris; E78.00 Pure hypercholesterolemia, unspecified; J44.9 Chronic obstructive pulmonary disease, unspecified; F17.210 Nicotine dependence, cigarettes, uncomplicated; Z91.018 Allergy to other foods; Z79.82 Long term (current) use of aspirin; Z79.01 Long term (current) use of anticoagulants; Z79.899 Other long term (current) drug therapy; Z79.890 Hormone replacement therapy
CPT/HCPCS: 93971; 99283-25

== ENCOUNTER 2024-09-15 17:21 | Emergency (ER) | payer OTHER ==
[~2024-09-15] VITALS: Ht 182.9 cm; Wt 90.7 kg
[2024-09-15 18:29] LABS: BASOPHILS ABSOLUTE AUTO 0.05 K/mm3 (0.00-0.23); BASOPHILS PERCENT AUTO 1 % (0-2); EOSINOPHILS ABSOLUTE AUTO 0.08 K/mm3 (0.00-0.68); EOSINOPHILS PERCENT AUTO 1 % (0-6); Hematocrit 37.7 % (37.0-53.0); Hemoglobin 12.3 g/dL (13.5-17.5); IMMATURE GRAN ABSOLUTE AUTO 0.03 K/mm3 (0.00-0.10); IMMATURE GRAN PERCENT AUTO 0 % (0-1); LYMPHOCYTES ABSOLUTE AUTO 1.45 K/mm3 (0.84-5.20); LYMPHOCYTES PERCENT AUTO 20 % (21-46); MONOCYTES ABSOLUTE AUTO 0.67 K/mm3 (0.16-1.47); MONOCYTES PERCENT AUTO 9 % (4-13); Mean Corpuscular HGB 29.2 pg (26.0-34.0); Mean Corpuscular HGB Conc 32.6 g/dL (31.5-36.5); Mean Corpuscular Volume 90 fL (80-100); Mean Platelet Volume 10.9 fL (9.1-12.4); NEUTROPHILS ABSOLUTE AUTO 5.05 K/mm3 (1.96-9.15); NEUTROPHILS PERCENT AUTO 69 % (41-73); Platelet Count 132 K/mm3 (150-400); RDW Coefficient Variation 14.8 % (11.7-14.2); RDW Standard Deviation 48.4 fL (35.1-46.3); Red Blood Cell Count 4.21 M/mm3 (4.30-5.90); White Blood Cell Count 7.33 K/mm3 (4.00-11.30)
[2024-09-15 18:58] LABS: Albumin, Blood 3.3 g/dL (3.4-5.0); Albumin/Globulin Ratio 0.9 (0.8-1.8); Bilirubin, Total 0.7 mg/dL (0.1-1.0); Bun/Creatinine Ratio 8.1 (12.0-20.0); Calcium, Blood 8.7 mg/dL (8.5-10.1); Creatinine, Blood 1.36 mg/dL (0.60-1.20); Globulin, Blood 3.8 g/dL (2.2-4.0); Potassium, Blood 4.1 mmol/L (3.5-5.5); Total Protein, Blood 7.1 g/dL (6.4-8.2)
[2024-09-15 19:41] LABS: Source, Urine Clean Catch
[2024-09-15 19:49] LABS: Appearance, Urine Clear (Clear); Bilirubin, Urine Neg (Neg); Blood, Urine Neg (Neg); Color, Urine Yellow (P-Yellow); Glucose Qualitative, Urine Neg (Neg); Ketones, Urine Neg (Neg); Leukocyte Esterase, Urine Neg (Neg); Nitrite, Urine Neg (Neg); Protein, Urine Neg (Neg); Specific Gravity, Urine 1.015 (1.003-1.022); Urobilinogen, Urine NORM (Normal)
[2024-09-15 20:37] VITALS: BP 136/76
== END 2024-09-15 20:38 | disposition home or self-care (01) ==
LOC: ER 17:21
PROVIDERS: Student in an Organized Health Care Education/Training Program
DX: K40.90 Unilateral inguinal hernia, without obstruction or gangrene, not specified as recurrent (principal); I25.10 Atherosclerotic heart disease of native coronary artery without angina pectoris; I10 Essential (primary) hypertension; E78.00 Pure hypercholesterolemia, unspecified; J44.9 Chronic obstructive pulmonary disease, unspecified; F17.210 Nicotine dependence, cigarettes, uncomplicated; Z91.018 Allergy to other foods; Z79.899 Other long term (current) drug therapy; Z79.890 Hormone replacement therapy
CPT/HCPCS: 76857; 80053; 81003; 85025; 99283-25

== ENCOUNTER 2024-10-18 16:03 | Emergency (ER) | payer OTHER ==
[~2024-10-18] VITALS: Ht 182.9 cm; Wt 90.7 kg
[2024-10-18 16:54] LABS: BASOPHILS ABSOLUTE AUTO 0.05 K/mm3 (0.00-0.23); BASOPHILS PERCENT AUTO 1 % (0-2); EOSINOPHILS ABSOLUTE AUTO 0.11 K/mm3 (0.00-0.68); EOSINOPHILS PERCENT AUTO 2 % (0-6); Hemoglobin 13.6 g/dL (13.5-17.5); IMMATURE GRAN ABSOLUTE AUTO 0.02 K/mm3 (0.00-0.10); IMMATURE GRAN PERCENT AUTO 0 % (0-1); LYMPHOCYTES ABSOLUTE AUTO 1.36 K/mm3 (0.84-5.20); LYMPHOCYTES PERCENT AUTO 19 % (21-46); MONOCYTES ABSOLUTE AUTO 0.64 K/mm3 (0.16-1.47); MONOCYTES PERCENT AUTO 9 % (4-13); Mean Corpuscular HGB 29.1 pg (26.0-34.0); Mean Corpuscular HGB Conc 32.4 g/dL (31.5-36.5); Mean Corpuscular Volume 90 fL (80-100); Mean Platelet Volume 10.4 fL (9.1-12.4); NEUTROPHILS ABSOLUTE AUTO 4.83 K/mm3 (1.96-9.15); NEUTROPHILS PERCENT AUTO 69 % (41-73); Platelet Count 148 K/mm3 (150-400); RDW Coefficient Variation 15.5 % (11.7-14.2); RDW Standard Deviation 51.1 fL (35.1-46.3); Red Blood Cell Count 4.68 M/mm3 (4.30-5.90); White Blood Cell Count 7.01 K/mm3 (4.00-11.30)
[2024-10-18 17:22] LABS: Albumin, Blood 3.7 g/dL (3.4-5.0); Bilirubin, Total 0.6 mg/dL (0.1-1.0); Bun/Creatinine Ratio 11.9 (12.0-20.0); Calcium, Blood 9.2 mg/dL (8.5-10.1); Creatinine, Blood 1.18 mg/dL (0.60-1.20); Globulin, Blood 3.6 g/dL (2.2-4.0); Potassium, Blood 4.2 mmol/L (3.5-5.5); Total Protein, Blood 7.3 g/dL (6.4-8.2)
[2024-10-18 19:00] VITALS: BP 137/78
[2024-10-18] MEDS ORDERED: Dicyclomine HCl 20 MG Tab PO ONE (21:25)
[2024-10-18] MEDS ORDERED: DICY20 PO (21:26)
== END 2024-10-18 21:42 | disposition home or self-care (01) ==
LOC: ER 16:03
PROVIDERS: Student in an Organized Health Care Education/Training Program
DX: K40.90 Unilateral inguinal hernia, without obstruction or gangrene, not specified as recurrent (principal); I25.10 Atherosclerotic heart disease of native coronary artery without angina pectoris; I10 Essential (primary) hypertension; E78.00 Pure hypercholesterolemia, unspecified; J44.9 Chronic obstructive pulmonary disease, unspecified; F17.210 Nicotine dependence, cigarettes, uncomplicated; Z91.018 Allergy to other foods; Z79.01 Long term (current) use of anticoagulants; Z79.82 Long term (current) use of aspirin; Z79.890 Hormone replacement therapy
CPT/HCPCS: 74177; 80053; 85025; 99284-25; A9270; Q9967

== ENCOUNTER 2025-03-07 00:33 | Emergency (ER) | payer OTHER ==
[~2025-03-07] VITALS: Ht 182.9 cm; Wt 90.7 kg
[~2025-03-07 00:33] MED LIST changes: +DICY20 PO
[2025-03-07] MEDS ORDERED: RX Prepack 6 Tabs Oxycodone 5mg UD ONE (01:40)
[2025-03-07 02:38] VITALS: BP 135/75
== END 2025-03-07 02:38 | disposition home or self-care (01) ==
LOC: ER 00:33
DX: K40.90 Unilateral inguinal hernia, without obstruction or gangrene, not specified as recurrent (principal); I25.10 Atherosclerotic heart disease of native coronary artery without angina pectoris; I10 Essential (primary) hypertension; E78.00 Pure hypercholesterolemia, unspecified; J44.9 Chronic obstructive pulmonary disease, unspecified; N40.0 Benign prostatic hyperplasia without lower urinary tract symptoms; F17.210 Nicotine dependence, cigarettes, uncomplicated; Z79.01 Long term (current) use of anticoagulants; Z79.52 Long term (current) use of systemic steroids; Z91.018 Allergy to other foods; Z79.82 Long term (current) use of aspirin; Z79.890 Hormone replacement therapy; Z79.899 Other long term (current) drug therapy; Z79.02 Long term (current) use of antithrombotics/antiplatelets; Z95.1 Presence of aortocoronary bypass graft; Z95.0 Presence of cardiac pacemaker
CPT/HCPCS: 99284; A9270

== ENCOUNTER 2025-04-12 08:46 | Day surgery (SDC) | payer OTHER ==
[~2025-04-12] VITALS: Ht 177.8 cm; Wt 80.2 kg
[2025-04-12] VITALS (11 sets, daily range): BP systolic 115–165; BP diastolic 52–79
[~2025-04-12 08:46] MED LIST changes: +ARTHRITIS PAIN150 GM TOP; +Bupivacaine 0.5% HCl 5 MG/ML 30MLVIAL ONE; +Carvedilol12.5 MG PO; +CeFAZolin Sodium 2,000 MG in NS 100 ML IV SCH; -Celexa20 MG; -DICLOFENAC SOD100 GM; +FentaNYL Citrate 50 MCG/ML 2 ML Injection ONE; +Midazolam HCl 1MG / ML 2ML Vial ONE; +STIOLTO RESPIMAT4 G2 INH
[2025-04-12] MEDS ORDERED: Rocuronium Bromide 10 MG/ML 5ML Injection IV ONE ×3 (09:04→11:19)
[2025-04-12] MEDS ORDERED: Ipratropium/Albuterol SulF 2.5-0.5MG/3 ML Amp INH ONE (09:15)
--- NOTE | 2025-04-12 09:23 | NUR ---
Ambulatory in Day Surgery History, Chart, Medications and Allergies reviewed before start of procedure. Pre-Op teaching done. Pt verbalizes understanding. Patient States Post-Procedure ride home has been arranged. DuoNeb ordered per anestheisa due to congested/wheezes noted.
--- NOTE | 2025-04-12 09:29 | NUR ---
UPPER/LOWER DENTURES AND GLASSES TAKEN TO PACU.
[2025-04-12] MEDS ORDERED: Sugammadex Sodium 200 MG/2ML SDV (100 MG/ML) ONE (10:01)
[2025-04-12] MEDS ORDERED: HYDROmorphone HCl/Pf 1MG SYR ONE (10:15)
[2025-04-12] MEDS ORDERED: Labetalol HCL 5 MG/ML 4ML Injection (Single Dose) ONE (10:26)
[2025-04-12] MEDS ORDERED: Ketorolac Tromethamine 30mg Vial ONE (11:54)
[2025-04-12] MEDS ORDERED: FentaNYL Citrate 50 MCG/ML 2 ML Injection ONE (12:23)
[2025-04-12] MEDS ORDERED: OxyCODONE 5 mg/Acetamin 325 mg TABLET PO PRN (12:25)
[2025-04-12] MEDS ORDERED: FentaNYL Citrate 50 MCG/ML 2 ML Injection IV PRN ×2 (12:40)
[2025-04-12] MEDS ORDERED: Ondansetron HCl 2 MG / ML 2ML Vial IV PRN (12:40)
[2025-04-12] MEDS ORDERED: HYDROmorphone HCl/Pf 1MG SYR IV PRN ×2 (12:40)
--- NOTE | 2025-04-12 13:51 | NUR ---
TO STEP POST BILAT INGUINAL HERNIA REPAIR. ABD INCISIONS CLOSED WITH SURGICAL GLUE, NO DRAINAGE. UMBILLICAL DRESSING TO BE REMOVED IN 72 HOURS. PT VERY DROWSY, DENIES NAUSEA, SOB. REPORTS MOD PAIN 5/10, TOLERABLE FOR PT. 1 PERCOCET GIVEN, VERBALIZED UNDERSTANDING OF MEDICATIONS, FOLLOW UP, WOUND CARE. DAUGHTER UPDATED VIA PHONE. DRESSED AT BEDSIDE WITH ASSIST/CANE. 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 ICE THERAPY PROVIDED.
== END 2025-04-12 13:40 | disposition home or self-care (01) ==
LOC: ORSCMMR 08:46 → ORD 10:00 → ORSCMMR 10:00
PROVIDERS: Surgery
PROC: 3E0T3BZ Introduction of Anesthetic Agent into Peripheral Nerves and Plexi, Percutaneous Approach (ICD-10-PCS; principal; 2025-04-12 10:00)
PROC: 0YUA4JZ Supplement Bilateral Inguinal Region with Synthetic Substitute, Percutaneous Endoscopic Approach (ICD-10-PCS; principal; 2025-04-12 10:00)
PROC: 0WQF4ZZ Repair Abdominal Wall, Percutaneous Endoscopic Approach (ICD-10-PCS; principal; 2025-04-12 10:00)
PROC: 8E0W4CZ Robotic Assisted Procedure of Trunk Region, Percutaneous Endoscopic Approach (ICD-10-PCS; principal; 2025-04-12 10:00)
DX: K40.00 Bilateral inguinal hernia, with obstruction, without gangrene, not specified as recurrent (principal); K42.0 Umbilical hernia with obstruction, without gangrene; I48.91 Unspecified atrial fibrillation; Z79.01 Long term (current) use of anticoagulants; I25.10 Atherosclerotic heart disease of native coronary artery without angina pectoris; J44.9 Chronic obstructive pulmonary disease, unspecified; F17.210 Nicotine dependence, cigarettes, uncomplicated; K21.9 Gastro-esophageal reflux disease without esophagitis; Z79.899 Other long term (current) drug therapy; I25.2 Old myocardial infarction; E78.00 Pure hypercholesterolemia, unspecified; E78.5 Hyperlipidemia, unspecified; E03.9 Hypothyroidism, unspecified; Z95.0 Presence of cardiac pacemaker; I10 Essential (primary) hypertension
CPT/HCPCS: A9270; C1781; J0690; J1171; J1885; J2250; J2704; J3010; J7120